=== PATIENT | male | born 1975 | race Caucasian/White ===

== ENCOUNTER 2021-02-15 18:37 | Emergency (ER) | payer MEDICAID, SELFPAY ==
--- NOTE | ~2021-02-15 | XR_ITS ---
EXAMINATION: XR SHOULDER, LEFT CLINICAL INFORMATION: Left shoulder pain. COMPARISON: None TECHNIQUE: AP, Grashey, and scapular Y views of the left shoulder. FINDINGS: Pcyc-cw-oxkrxwbd acromioclavicular marginal osteophytes. No glenohumeral joint space narrowing or marginal osteophytes. Probable degenerative cystic change within the humeral head. No acute fracture or dislocation. No abnormal soft tissue calcification. XR/XR shoulder LT min 2V IMPRESSION: Lala-tq-xwlanzsn acromioclavicular osteoarthritis.
--- NOTE | ~2021-02-15 | XR_ITS ---
EXAMINATION: XR CERVICAL SPINE CLINICAL INFORMATION: Left-sided neck pain. COMPARISON: None TECHNIQUE: Three views of the cervical spine were obtained. FINDINGS: There are no prevertebral soft tissue or bony abnormalities demonstrated. No compression fractures or subluxations are identified. Alignment is maintained at the atlanto-axial articulation. The disc spaces are preserved. No endplate changes are seen. The prevertebral soft tissues are normal. The foramina are patent. XR/XR cervical spine 2V IMPRESSION: Unremarkable examination.
--- NOTE | ~2021-02-15 | XR_ITS ---
EXAMINATION: XR CHEST CLINICAL INFORMATION: Overdose. COMPARISON: None TECHNIQUE: 2 views of the chest were obtained. FINDINGS: The lungs are clear. The cardiomediastinal silhouette is normal in size. There is no pleural effusion or pneumothorax. No acute osseous abnormality. XR/XR chest 2V IMPRESSION: No acute cardiopulmonary findings.
[2021-02-15 18:50] VITALS: BP 130/84; PULSE 98; RESP 18; TEMP 36.6; O2SAT 96; BMI 23.4
--- NOTE | 2021-02-15 18:57 | ED_ITS ---
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 Was found unresponsive on the side of the road, given 8 mg of Narcan and Ambu bagged by police department. Patient is alert oriented on arrival, and is unable to communicate effectively because he requires a creative services designer. complaint: accidental overdose Onset (ago): hour(s) (Within the hour of arrival) Intent: unwilling to say Context: Accidental Overdose: uncertain what happened Treatments Prior to Arrival: narcan Related Data Allergies Allergy/AdvReac Type Severity Reaction Status Date / Time Unable to Assess Allergy Verified 02/15/21 18:54 Review of Systems Review of Systems: Constitutional: No Fever, No Chills ENT/Mouth: No sore throat, No Rhinorrhea Eyes: No Eye Pain, No Swelling, No Redness Cardiovascular: No Chest Pain, No SOB Respiratory: No Cough, No Sputum Gastrointestinal: No Nausea, No Vomiting, No Diarrhea, No abdominal Pain Genitourinary: No Dysuria, No Hematuria Musculoskeletal: No joint pain, No Myalgias, No Joint Swelling Skin: No Skin Lesions, No rash Neuro: No Weakness, No Numbness, No Loss of Consciousness, No Dizziness, No Headache Psych: Positive overdose, No Anxiety, No Depression, No SI/HI/AH/VH Heme/Lymph: No Bruising, No Bleeding,No Lymphadenopathy Endocrine: No Polyuria, No Polydipsia Yes all other systems are reviewed and are negative [facility] Past Medical History Attestation statement: The following information was validated with the patient. Source: old records reviewed Social History Social History Advance Directives: No Advance Directives Information Provided: Yes Physical Exam Vital Signs: Vital Signs: Last Vital Signs Temp 98 F 02/15/21 21:25 Pulse 70 02/15/21 21:25 Resp 16 02/15/21 21:25 BP 119/81 02/15/21 21:25 Pulse Ox 99 02/15/21 21:25 Body Mass Index 23.4 Appearance: Alert. Oriented X3. No acute distress. Eyes: Pupils equal, round and reactive to light. ENT: Pharynx normal. Neck: Normal inspection. Neck supple. CVS: Normal heart rate and rhythm. Pulses normal. Respiratory: No respiratory distress. Breath sounds normal. Abdomen: Soft and nontender. Skin: Skin warm and dry. Normal skin color. Normal skin turgor. Extremities: Moves all extremities against resistance. Left shoulder pain to palpation. Neuro: No motor deficit. No sensory deficit. Course Course Course Narrative: 37-year-old male presents via EMS for overdose. Patient is hard of hearing, can read lips and requires professor of genetics. professor of genetics at bedside, patient states that he does not know what happened, denies opioid abuse. Patient's etdmxss-mv-aos at bedside, immediately stated that patient does not do drugs. Detailed description of the events that occurred discussed with the patient and the patient's family member, patient still will not admit to using opioids even though he was resuscitated with Narcan and rescue breath. We will monitor for 2 hours, patient does state to have left shoulder pain. Will order x-rays. 8:24 p.m. X-rays are negative for acute findings requiring emergent intervention. Patient maintains O2 sats in the 99-98% on room air. Even unlabored respirations, easily arousable. 9:23 p.m., vital signs were stable, O2 sat 98% on room air, heart rate in 70s. Plan of care is discharged home. Patient is not forthcoming about the incidents that brought him here. MDM - Overdose Differential Diagnosis Differential diagnosis: Likely drug overdose Medical Records Attestation: I reviewed the patient's medical records. Imaging Data Chest x-ray: Attestation: I personally reviewed and interpreted this imaging study as follows: Radiologist's impression: EXAMINATION: XR CHEST CLINICAL INFORMATION: Overdose. COMPARISON: None TECHNIQUE: 2 views of the chest were obtained. FINDINGS: The lungs are clear. The cardiomediastinal silhouette is normal in size. There is no pleural effusion or pneumothorax. No acute osseous abnormality. XR/XR chest 2V IMPRESSION: No acute cardiopulmonary findings. Shoulder x-ray: Attestation: I personally reviewed and interpreted this imaging study as follows: Radiologist's impression: EXAMINATION: XR SHOULDER, LEFT CLINICAL INFORMATION: Left shoulder pain. COMPARISON: None TECHNIQUE: AP, Grashey, and scapular Y views of the left shoulder. FINDINGS: Bioc-ei-eyglmbrn acromioclavicular marginal osteophytes. No glenohumeral joint space narrowing or marginal osteophytes. Probable degenerative cystic change within the humeral head. No acute fracture or dislocation. No abnormal soft tissue calcification. XR/XR shoulder LT min 2V IMPRESSION: Uuqx-bo-czpvonek acromioclavicular osteoarthritis. Cervical spine x-ray: Attestation: I personally reviewed and interpreted this imaging study as follows: Radiologist's impression: EXAMINATION: XR CERVICAL SPINE CLINICAL INFORMATION: Left-sided neck pain. COMPARISON: None TECHNIQUE: Three views of the cervical spine were obtained. FINDINGS: There are no prevertebral soft tissue or bony abnormalities demonstrated. No compression fractures or subluxations are identified. Alignment is maintained at the atlanto-axial articulation. The disc spaces are preserved. No endplate changes are seen. The prevertebral soft tissues are normal. The foramina are patent. XR/XR cervical spine 2V IMPRESSION: Unremarkable examination. Discharge Plan Discharge Clinical Impression: Heroin overdose Qualifiers: Encounter type: initial encounter Injury intent: accidental or unintentional Qualified Code(s): T40.1X1A - Poisoning by heroin, accidental (unintentional), initial encounter Patient Disposition: Home, Self-Care Instructions: Opioid Safety (ED), Opioid Use Disorder (ED) Additional Instructions: Considere la desintoxicaci?n. Teagan por elegir sheri departamento de emergencias para estes evaluaci?n. Carmen un seguimiento con el m?dico de atenci?n primaria seg?n sea necesario. Regrese al departamento de emergencias por cualquier s?ntoma nuevo, preocupante o que empeore. Please consider detox. Thank you for choosing this emergency department for evaluation. Please follow-up with primary care physician as needed. Return to the emergency department for any new, concerning, or worsening symptoms. Interventions: ED Discharge Assessment Last Done: 02/15/21 21:35 Discharge Date/Time: 02/15/21 21:36
[2021-02-15 21:25] VITALS: BP 119/81; PULSE 70; RESP 16; TEMP 36.6; O2SAT 99
== END 2021-02-15 21:36 | disposition home or self-care (01) ==
PROVIDERS: Emergency Provider Internal Medicine
DX: T40.1X1A Poisoning by heroin, accidental (unintentional), initial encounter (principal); M25.512 Pain in left shoulder; M54.2 Cervicalgia; F11.10 Opioid abuse, uncomplicated; Y92.9 Unspecified place or not applicable; Z71.51 Drug abuse counseling and surveillance of drug abuser
CPT/HCPCS: 71046; 72040; 73030; 99284

== ENCOUNTER 2021-10-08 10:52 | Emergency (ER) | payer MEDICAID, SELFPAY ==
[2021-10-08 12:29] VITALS: BP 128/77; PULSE 77; RESP 18; TEMP 36.6; O2SAT 99; BMI 25.1
--- NOTE | 2021-10-08 13:34 | ED_ITS ---
HPI - Male Genitourinary General Chief complaint: Urogenital-Male Stated complaint: Abd pain Time Seen by Provider: 10/08/21 13:17 Source: patient Mode of arrival: ambulatory Limitations: language barrier (Patient is deaf and mute, his 1st language is [place], he does use ASL but he angle shear set up operator had difficulty communicating with patient) History of Present Illness HPI Narrative: 46-year-old male who presents emergency department for evaluation of penile discharge x2 days. The patient is a deaf mute, 1st language is [place], uses ASL however there was difficulty communicating with using the ASL residential interior designer and information is limited. The patient states that he had sex with 2 women, I was unable to determine when this happened. He states that over the past 1-2 days he has had pain in his penis and he has noticed thick discharge. Other information is limited. Related Data Previous Rx's Medication Instructions Recorded doxycycline hyclate 100 mg tablet 100 mg PO Q12H 10 Days #20 tab 10/08/21 metronidazole 500 mg tablet 2,000 mg PO ONCE 1 Days #4 tab 10/08/21 Allergies Allergy/AdvReac Type Severity Reaction Status Date / Time Unable to Assess Allergy Verified 02/15/21 18:54 Review of Systems Review of Systems: Yes Other (Limited secondary to communication barrier) [facility] Past Medical History [facility] Narrative: Past medical history: Heroin overdose 02/15/2021. Social history: The patient lives alone. Social History Social History Advance Directives: No Advance Directives Information Provided: Yes Physical Exam Vital Signs: Vital Signs: Last Vital Signs Temp 98 F 10/08/21 12:29 Pulse 77 10/08/21 12:29 Resp 18 10/08/21 12:29 BP 128/77 10/08/21 12:29 Pulse Ox 99 10/08/21 12:29 BMI result Body Mass Index 25.1 Const: General: cooperative and no acute distress HENMT: Head: Yes normal to inspection, Yes normocephalic and Yes atraumatic Ears: external ears normal General nose exam: Normal external nose present Face and sinus: Yes normal facial exam Mouth: Normal oral and palatal mucosa present Throat: Yes posterior oropharynx normal Eyes: General: appearance normal, both eyes and all related structures Neck: Neck: Yes normal visual inspection, Yes no lymphadenopathy, Yes trachea midline and Yes supple Chest: Chest palpation & inspection: normal inspection of the chest and normal palpation of entire chest wall Resp: Effort & Inspection: normal respiratory effort and able to speak in co mplete sentences Auscultation: clear to auscultation bilaterally Cardio: Rate: regular rate Rhythm: regular rhythm Heart sounds: S1 normal heart sound present, S2 normal heart sound present and no murmurs GI: Inspection: Yes normal to inspection Palpation (GI): Soft to palpation, nontender and no guarding Auscultation: normal bowel sounds : General: Yes no CVA tenderness Male General Exam: Yes normal external exam Penis: normal penis and uncircumcised Meatus: meatal discharge (Perfused, thick, melvin) Scrotum: scrotum normal, testes descended bilaterally and no scrotal swelling Testes: Testes normal, no epidiymal tenderness, no testicular swelling and no testicular tenderness Back/Spine/Pelvis: Back: no CVA tenderness Skin: General skin exam: no rashes or lesions noted Neuro: Other: Nonfocal Extrem: General: Yes normal to inspection Psych: Appearance: grossly normal Affect: normal affect Attitude: cooperative Course Course Course Narrative: 46-year-old male who presents emergency department for evaluation of penile discharge. Vital signs were normal. Examination did reveal an uncircumcised male penis with a thick, perfuse, grayish discharge which is consistent with an STD most likely gonorrhea. I did discuss the treatment of STD with the patient. The patient was given ceftriaxone 500 mg IM with lidocaine 1% IM. Patient will be treated with doxycycline 100 mg twice a day for 10 days and metronidazole 2 g x 1 orally. Patient was advised to follow-up with his PCP Or [facility] for HIV testing and for syphilis testing. He was also told that he should inform his sexual partners so that they can be treated as well. Patient was given printed and verbal instructions and discharged home. Discharge Plan Discharge Clinical Impression: STD (male), Gonococcal urethritis Patient Disposition: Home, Self-Care Instructions: Sexually Transmitted Diseases (ED), Gonorrhea (ED) Additional Instructions: Your exam today and your symptoms are consistent with a sexually transmitted disease, most likely gonorrhea. You were treated with ceftriaxone 500 mg IM. This will treat gonorrhea. I am prescribing doxycycline 100 mg pills, take 1 pill twice a day for 10 days. This will treat chlamydia. I am also prescribing Flagyl (metronidazole) 500 mg pills, take 4 pills all at once tomorrow. You will need to follow-up with your doctor or the [facility] in [place] for AIDS/HIV and syphilis testing. You will need to contact your sexual partners to make sure that they get treated for sexually transmitted diseases well. Take ibuprofen 200 mg pills, 3 pills every 6 hours as needed for pain. Take Tylenol (acetaminophen) 500 mg pills, 2 pills every 4 to 6 hours as needed for pain. Follow-up with your doctor in 7 days or [facility]. Please return to the emergency department if your symptoms get worse or if you develop any symptoms that are concerning to you. Prescriptions: New metronidazole 500 mg tablet 2,000 mg PO ONCE 1 Days Qty: 4 RF: 0 doxycycline hyclate 100 mg tablet 100 mg PO Q12H 10 Days Qty: 20 RF: 0 Print Language: [place]
[2021-10-08] MEDS: cefTRIAXone sodium 500 MG, Lidocaine HCl 1 % MPF 1 ML IM (15:02)
[2021-10-08 15:27] VITALS: BP 118/83; PULSE 69; RESP 18; TEMP 37.1; O2SAT 99
== END 2021-10-08 15:46 | disposition home or self-care (01) ==
PROVIDERS: Emergency Provider Emergency Medicine Emergency Medical Services
DX: A54.01 Gonococcal cystitis and urethritis, unspecified (principal); R36.9 Urethral discharge, unspecified; R10.9 Unspecified abdominal pain; Z79.899 Other long term (current) drug therapy
CPT/HCPCS: 96372; 99284; J0696

== ENCOUNTER 2022-01-02 14:00 | Emergency (ER) | payer MEDICAID, SELFPAY ==
--- NOTE | ~2022-01-02 | XR_ITS ---
EXAMINATION: 1. RIGHT HIP. 2. RIGHT FEMUR. CLINICAL INFORMATION: Pain in upper leg after a fall COMPARISON: None TECHNIQUE: 1. Right hip. Frontal view of pelvis. Cone-down AP and oblique view of the right hip 2. Right femur. 2 views FINDINGS: 1. Right hip. No fracture. No dislocation. Hip joints normal. Sacroiliac joints and symphysis pubis are normal. 2. Right femur. Intramedullary alice present in the femur. Hardware intact. Old healed fracture with residual deformity of the distal shaft of the right femur. Prominent spur at the inferior patellar margin. Small chronic soft tissue ossification the suprapatellar region and inferior to the patella at the anterior knee joint. XR/XR femur RT 2V IMPRESSION: 1. Right hip. No acute abnormality. 2. Right femur. No acute abnormality. Old healed fracture of the right femur. Intramedullary alice in right femur.
--- NOTE | ~2022-01-02 | XR_ITS ---
EXAMINATION: 1. RIGHT HIP. 2. RIGHT FEMUR. CLINICAL INFORMATION: Pain in upper leg after a fall COMPARISON: None TECHNIQUE: 1. Right hip. Frontal view of pelvis. Cone-down AP and oblique view of the right hip 2. Right femur. 2 views FINDINGS: 1. Right hip. No fracture. No dislocation. Hip joints normal. Sacroiliac joints and symphysis pubis are normal. 2. Right femur. Intramedullary alice present in the femur. Hardware intact. Old healed fracture with residual deformity of the distal shaft of the right femur. Prominent spur at the inferior patellar margin. Small chronic soft tissue ossification the suprapatellar region and inferior to the patella at the anterior knee joint. XR/XR hip RT w PEL1V IMPRESSION: 1. Right hip. No acute abnormality. 2. Right femur. No acute abnormality. Old healed fracture of the right femur. Intramedullary alice in right femur.
[2022-01-02 15:33] VITALS: BP 145/97; PULSE 90; RESP 16; TEMP 36.9; O2SAT 99; BMI 23.7
--- NOTE | 2022-01-02 17:51 | PC.NURSE ---
WENT TO MEDICATE PT NOT IN ROOM.
--- NOTE | 2022-01-02 18:19 | PC.NURSE ---
PT DOES NOT HAVE RIDE HOME DROVE HERE HIS SELF. NO MEDICATION GIVEN DO TO DRIVING HOME. PT AMBULATING WITH STEADY GAIT GIVEN 2 TURKEY SANDWICHES.
--- NOTE | 2022-01-02 19:23 | ED.LOWEXIN ---
HPI - Extremity Injury (Lower) General Chief Complaint: Extremity Injury, Lower Stated Complaint: right hip leg pain throbbing Time Seen by Provider: 01/02/22 17:14 Source: patient Mode of arrival: ambulatory Limitations: physical limitation (deaf) History of Present Illness HPI Narrative: 46-year-old male who is deaf but can read lips and can describe his experienced through gestures and some speech, tells me that yesterday he had a piece of furniture fall on his right hip in his right leg and now it is painful. Related Data Previous Rx's Medication Instructions Recorded doxycycline hyclate 100 mg tablet 100 mg PO Q12H 10 Days #20 tab 10/08/21 metronidazole 500 mg tablet 2,000 mg PO ONCE 1 Days #4 tab 10/08/21 lidocaine 5 % topical patch 3 patch TOPICAL DAILY #15 ea 01/02/22 Allergies Allergy/AdvReac Type Severity Reaction Status Date / Time Unable to Assess Allergy Verified 02/15/21 18:54 Review of Systems Constitutional: Constitutional: Denies body ache(s), Denies chills, Denies fatigue, Denies fever(s), Denies headache(s), Denies malaise and Denies weakness Eyes: Eyes: Denies diplopia ENT: Denies vertigo, Denies dizziness, Denies headache(s) and Denies throat swelling Cardiovascular: Cardiovascular: Denies chest pain, Denies syncope, Denies leg edema, Denies lightheadedness, Denies Loss of Consciousness, Denies palpitations and Denies dyspnea Respiratory: Respiratory: Denies chest congestion, Denies cough and Denies dyspnea Gastrointestinal: Gastrointestinal: Reports abdominal pain, Denies hematochezia, Denies constipation, Denies diarrhea and Denies vomiting Musculoskeletal: Comments: Right hip and leg pain Neurologic: Denies confusion, Denies vertigo, Denies dizziness, Denies syncope, Denies headache(s) and Denies weakness Psychiatric: Psychiatric: Denies anxiety, Denies confusion and Denies depression Endocrine: Endocrine: Denies fatigue and Denies palpitations Allergic/Immunologic: Allergic/Immunologic: Denies throat swelling PMFSH Social History Social History Advance Directives: No Advance Directives Information Provided: No Physical Exam Vital Signs: Vital Signs: Last Vital Signs Temp 98.4 F 01/02/22 15:33 Pulse 90 01/02/22 15:33 Resp 16 01/02/22 15:33 BP 145/97 H 01/02/22 15:33 Pulse Ox 99 01/02/22 15:33 BMI result Body Mass Index 23.7 Const: General: No confusion Nutritional Appearance: well nourished Orientation/consciousness: No confusion Limitations: no limitations Eyes: Conjunctivae: conjunctivae normal Pupils: Equal, round and reactive pupils present EOM: EOMs intact bilaterally Neck: Neck: Yes full ROM, Yes no lymphadenopathy and Yes supple Resp: Effort & Inspection: normal respiratory effort and able to speak in complete sentences Auscultation: clear to auscultation bilaterally, no crackles, no rales, no rhonchi and no wheezes Cardio: Rate: regular rate Rhythm: regular rhythm Heart sounds: S1 normal heart sound present and S2 normal heart sound present GI: Inspection: Yes normal to inspection Palpation (GI): Soft to palpation, nontender, no guarding and not rigid Percussion: Yes normal to percussion Auscultation: normal bowel sounds Skin: General skin exam: no rashes or lesions noted Neuro: General: No confusion Cranial nerves: Yes Equal, round and reactive pupils present Extrem: Other: Tender to palpate right lateral thigh right hip General: Yes normal to inspection, Yes full ROM, Yes capillary refill normal and Yes no joint enlargement Psych: Appearance: grossly normal Affect: normal affect Attitude: cooperative Thought process: Normal thought process present Course Course Course Narrative: 46-year-old patient presents for right hip and right upper thigh pain after a piece of furniture fell onto him. No fracture on x-ray. Patient is able to ambulate, and has intact lower extremity pulses, sensation, DTRs, and motor strength. Will treat pain with lidocaine patches. Patient verbalized agreement and understanding of the plan. XR/XR femur RT 2V IMPRESSION: ? 1. Right hip. No acute abnormality. 2. Right femur. No acute abnormality. Old healed fracture of the right femur. Intramedullary alice in right femur.? Discharge Plan Discharge Clinical Impression: Contusion of hip, right Patient Disposition: Home, Self-Care Instructions: Contusion in Adults (ED) Additional Instructions: Please apply lidocaine patch to right hip for pain. You have no fracture. Please rest your right leg. Please use Tylenol. Please return to emergency room for any new or concerning symptoms. Prescriptions: New lidocaine 5 % adhesive patch,medicated 3 patch topical DAILY Qty: 15 0RF Rx Instructions: leave on most painful area for up to 12 hrs No Action metronidazole 500 mg tablet 2,000 mg PO ONCE 1 Days Qty: 4 0RF doxycycline hyclate 100 mg tablet 100 mg PO Q12H 10 Days Qty: 20 0RF Interventions: ED Discharge Assessment Last Done: 01/02/22 19:36 Discharge Date/Time: 01/02/22 19:38
== END 2022-01-02 19:38 | disposition home or self-care (01) ==
PROVIDERS: Emergency Provider Emergency Medicine
DX: S70.01XA Contusion of right hip, initial encounter (principal); M79.604 Pain in right leg; Y29.XXXA Contact with blunt object, undetermined intent, initial encounter; Y93.9 Activity, unspecified; Y92.9 Unspecified place or not applicable; Y99.9 Unspecified external cause status; Z79.899 Other long term (current) drug therapy
CPT/HCPCS: 73502; 73552; 99283; 99284

== ENCOUNTER 2022-01-28 02:27 | Emergency (ER) | payer MEDICAID, SELFPAY ==
[2022-01-28 02:38] VITALS: BP 149/77; PULSE 80; RESP 16; TEMP 36.8; O2SAT 100; BMI 24.3
--- NOTE | 2022-01-28 02:52 | ED_ITS ---
HPI - Male Genitourinary General Chief complaint: Urogenital-Male Stated complaint: uti? Time Seen by Provider: 01/28/22 02:41 Source: family (Brother) Mode of arrival: ambulatory Limitations: no limitations History of Present Illness HPI Narrative: Patient comes to the emergency room accompanied by his brother. Patient is deaf mute, speaks Bulgarian sign language. Patient declined site interpreter, patient would like his brother to interpret. Patient has been having dysuria and heavy white penile discharge for 6 days. Denies fever chills, no flank pain. Patient states that he is sure that he has a sexually transmitted disease. Related Data Previous Rx's Medication Instructions Recorded doxycycline hyclate 100 mg tablet 100 mg PO Q12H 10 Days #20 tab 10/08/21 metronidazole 500 mg tablet 2,000 mg PO ONCE 1 Days #4 tab 10/08/21 lidocaine 5 % topical patch 3 patch TOPICAL DAILY #15 ea 01/02/22 doxycycline hyclate 100 mg tablet 100 mg PO BID #14 tab 01/28/22 nitrofurantoin 100 mg PO Q12H 7 Days #14 cap 01/28/22 monohydrate/macrocrystals 100 mg capsule (Macrobid) Allergies Allergy/AdvReac Type Severity Reaction Status Date / Time No Known Allergies Allergy Verified 01/28/22 02:37 Review of Systems Review of Systems: Constitutional : No Weight loss, No Fever, No Chills, No Night Sweats, No Fatigue, No Malaise ENT/Mouth : No Hearing loss, No Ear Pain, No Nasal Congestion, No Sinus Pain, No Hoarseness, No sore throat, No Rhinorrhea, No Swallowing Difficulty Eyes: No Eye Pain, No Swelling, No Redness, No Foreign Body, No Discharge, No Vision Changes Cardiovascular : No Chest Pain, No SOB, No Dyspnea on Exertion, No Orthopnea, No Edema, No Palpitations Respiratory : No Cough, No Sputum, No Wheezing, No Smoke Exposure, No Dyspnea Gastrointestinal : No Nausea, No Vomiting, No Diarrhea, No Constipation, No abdominal Pain, No Hematochezia, No Melena Genitourinary : Complaining of penile discharge, denies testicular pain. No Dysuria, No Urinary Frequency, No Hematuria, No Urinary Incontinence, No Urgency, No Flank Pain, No Urinary Flow Changes, No Hesitancy Musculoskeletal : No joint pain, No Myalgias, No Joint Swelling Skin : No Skin Lesions, No rash Neuro : No Weakness, No Numbness, No Paresthesias, No Loss of Consciousness, No Dizziness, No Headache Psych : No Anxiety/Panic, No Depression, No SI/HI/AH/VH, No Social Issues, Heme/Lymph: No Bruising, No Bleeding,No Lymphadenopathy Endocrine : No Polyuria, No Polydipsia, No Temperature Intolerance PMF Past Medical History Medical History (Updated 01/28/22 @ 04:05 by Marcela Bañuelos MD) Deaf mutism, congenital Social History Social History Advance Directives: No Physical Exam Vital Signs: Vital Signs: Last Vital Signs Temp 98.2 F 01/28/22 02:38 Pulse 70 01/28/22 03:51 Resp 12 01/28/22 03:51 BP 130/79 01/28/22 03:51 Pulse Ox 99 01/28/22 03:51 BMI result Body Mass Index 24.3 Const: Other: Appearance: Alert. Oriented X3. No acute distress. Eyes: Pupils equal, round and reactive to light. ENT: Pharynx normal. Neck: Normal inspection. Neck supple. No lymph nodes noted. No crepitus CVS: Normal heart rate and rhythm. Pulses normal. Normal S1 and S2 Respiratory: No respiratory distress. Breath sounds normal. No Wheezing. No rales Abdomen: Soft and nontender. No rigidity. No distention. : No testicular pain bilaterally on palpation. Patient has copious white penile discharge Skin: Skin warm and dry. Normal skin color. Normal skin turgor. Extremities: No lower extremity edema. No Lacerations. No Rash Neuro: Oriented X 3. No motor deficit. No sensory deficit. Moving all extremities. No slurred speech. CN 2 through 12 grossly intact Psych: calm, cooperative, normal affect Course Course Course Narrative: Urinalysis pending. I discussed with the patient that based on physical exam, he likely has gonorrhea and likely also chlamydia. Patient will get IM ceftriaxone and p.o. doxycycline and will continue the rest of the antibiotics at home. Patient agrees with plan. Patient has foul-smelling urine. Besides STD, patient likely has a UTI as well. Patient given also Macrobid. MDM - Male Genitourinary Lab Data Labs: Lab Results 01/28/22 01/28/22 Range/Units 03:21 03:21 Urine Color YELLOW Urine Appearance CLOUDY Urine pH 6.0 (5.0-8.0) Ur Specific Accident >= 1.030 H (1.005-1.025) Urine Protein NEG (NEG-TRACE) MG/DL Urine Glucose (UA) NEG (NEG) MG/DL Urine Ketones NEG (NEG) MG/DL Urine Blood 1+ H (NEG) Urine Nitrite NEG (NEG) Ur Leukocyte Esterase 1+ H (NEG) Urine RBC 1-4 (0) /HPF Urine WBC TNTC H (0-4) /HPF Urine WBC Clumps NOTED Ur Squamous Epith Cells NONE /LPF Urine Bacteria 1+ /LPF Urine Opiates Screen POSITIVE H (Not Detect) Urine Fentanyl Screen POSITIVE H (Not Detect) Ur Barbiturates Screen Not Detected (Not Detect) Ur Phencyclidine Scrn Not Detected (Not Detect) Ur Amphetamines Screen Not Detected (Not Detect) U Benzodiazepines Scrn Not Detected (Not Detect) Urine Cocaine Screen POSITIVE H (Not Detect) U Marijuana (THC) Screen Not Detected (Not Detect) Discharge Plan Discharge Clinical Impression: Exposure to STD, Acute UTI Patient Disposition: Home, Self-Care Instructions: Sexually Transmitted Diseases (ED), Urinary Tract Infection in Men (ED) Additional Instructions: Please follow-up with your primary care physician tomorrow. If you have any worsening or new symptoms, please return to the emergency room or call 911 Prescriptions: New doxycycline hyclate 100 mg tablet 100 mg PO BID Qty: 14 0RF nitrofurantoin monohyd/m-cryst [Macrobid] 100 mg capsule 100 mg PO Q12H 7 Days Qty: 14 0RF Rx Instructions: must administer with a meal/food No Action metronidazole 500 mg tablet 2,000 mg PO ONCE 1 Days Qty: 4 0RF doxycycline hyclate 100 mg tablet 100 mg PO Q12H 10 Days Qty: 20 0RF lidocaine 5 % adhesive patch,medicated 3 patch topical DAILY Qty: 15 0RF Rx Instructions: leave on most painful area for up to 12 hrs
[2022-01-28] MEDS: cefTRIAXone sodium 500 MG, Lidocaine HCl 1 % MPF 1 ML IM (03:11)
[2022-01-28 03:35] LABS: Appearance Urine CLOUDY; Color Urine YELLOW; Glucose Urine UA NEG (NEG); Leukocyte Esterase Urine 1+ (NEG); Nitrite Urine NEG (NEG); Specific Gravity - Urine >= 1.030 (1.005-1.025); UACC Culture Trigger YES; Urine Blood 1+ (NEG); Urine Ketones NEG (NEG); Urine Protein NEG (NEG-TRACE)
[2022-01-28 03:48] LABS: Amphetamine Screen Urine Not Detected (Not Detect); Barbiturates, Urine Not Detected (Not Detect); Benzodiazepines Screen Urine Not Detected (Not Detect); Cannabinoid Screen Urine Not Detected (Not Detect); Cocaine Screen Urine POSITIVE (Not Detect); Fentanyl, urine POSITIVE (Not Detect); Opiate Screen Urine POSITIVE (Not Detect); Phencyclidine Screen Urine Not Detected (Not Detect)
[2022-01-28 03:51] VITALS: BP 130/79; PULSE 70; RESP 12; O2SAT 99
[2022-01-28 03:59] LABS: Bacteria Urine 1+ /LPF; WBC Clumps Urine NOTED; WBC Urine TNTC /HPF (0-4)
[2022-01-28] MEDS: Nitrofurantoin Monohyd/M-Cryst 100 MG CAPSULE PO (04:21)
[2022-01-28 05:06] LABS: CT PCR NOT DETECTED (Not Detect.); NG PCR DETECTED (Not Detect.)
== END 2022-01-28 04:39 | disposition home or self-care (01) ==
PROVIDERS: Emergency Provider Emergency Medicine
DX: N39.0 Urinary tract infection, site not specified (principal); R30.0 Dysuria; Z20.2 Contact with and (suspected) exposure to infections with a predominantly sexual mode of transmission; Z79.899 Other long term (current) drug therapy
CPT/HCPCS: 80307; 81001; 87086; 87491; 87591; 96372; 99284; J0696

== ENCOUNTER 2023-04-08 17:50 | Emergency (ER) | payer MEDICAID, SELFPAY ==
--- NOTE | ~2023-04-08 | XR_ITS ---
EXAMINATION: XR CHEST CLINICAL INFORMATION: Left-sided chest pain COMPARISON: None available. TECHNIQUE: Frontal view of the chest was obtained. FINDINGS: No significant abnormality is noted involving the heart, lungs, mediastinum, bony thorax or soft tissues. XR/XR chest 1V IMPRESSION: Unremarkable chest examination.
--- NOTE | ~2023-04-08 | CT_ITS ---
EXAMINATION: CT ABDOMEN AND PELVIS WITHOUT CONTRAST CLINICAL INFORMATION: Left abdominal pain COMPARISON: None available. TECHNIQUE: Multidetector volumetric imaging was performed from the superior aspect of the liver through the pubic symphysis. Sagittal and coronal reformatted images were obtained on the technologist's workstation. This CT examination was performed using dose optimization techniques as appropriate, variously including the following: *Automated exposure control *Adjustment of mA and/or kV according to patient size (this includes techniques or standardized protocols for targeted exams where dose is matched to indication/reason for exam; i.e. extremities or head) *Use of iterative reconstruction technique DLP: 246 mGy-cm FINDINGS: LUNG BASES: The lung bases are clear. The heart size is normal. LIVER, GALLBLADDER, AND BILIARY TREE: The liver is normal in size, shape, and attenuation. No focal hepatic lesion or biliary ductal dilatation is present. The gallbladder is unremarkable with no evidence of radiopaque gallstones, gallbladder wall thickening, or obvious pericholecystic inflammatory changes. PANCREAS: Unremarkable. SPLEEN: Unremarkable. ADRENAL GLANDS: Unremarkable. KIDNEYS AND URETERS: The kidneys are normal in size, shape, and attenuation. No hydronephrosis, hydroureter, or calculi seen. No perinephric stranding. BLADDER: The bladder is nondistended. GASTROINTESTINAL TRACT: There is a large amount of stool and gas seen in colon without significant distention. The small bowel loops are normal caliber. Appendix is not visualized. There is no free air or free fluid. ABDOMINAL WALL: No significant hernia is appreciated. LYMPH NODES: Normal. VASCULAR: Unremarkable. PELVIC VISCERA: Unremarkable. OSSEOUS STRUCTURES: No aggressive lytic or sclerotic process seen. CT/CT abdomen pelvis wo IV con IMPRESSION: 1. No acute intra-abdominal process seen. 2. Mild constipation. Fleischner guidelines were followed.
[2023-04-08 18:10] VITALS: BP 130/95; BP 140/98; PULSE 104; PULSE 120; RESP 18; TEMP 37.1; O2SAT 98; O2SAT 99; BMI 14.5
--- NOTE | 2023-04-08 18:16 | PC.NURSE ---
Arrived via ems. Per ems reports patients lives with many people but none of them were able to say what was wrong with patient. Patient deaf, mute, cant`t read, can`t write. Patient with some ability to read lips. Using interpretation cart chimney mechanic called. Branding Machine Operator stating that patient does not appear to understand much ASL. Patient able to communicate that his stomach was hurting him. Motioning that he had thrown up. Unable to say for how long. Brother called who only speaks bulgarian. Branding Machine Operator called to translate with brother one phone
--- OUTSIDE RECORDS SUMMARY | 2023-04-08 18:21 | XMS_ITS | Continuity of Care Document ---
Author Name Unknown Organization [facility] Address [address] [place] [address] [address] [place] [address]- Care Team Providers Care Gas Station Supervisor Name Role Phone Not on Staff, PCP Primary Care Physician Unavail able Encounter [facility] Date(s): 02/18/23 - 04/03/[address] [place] [address]- Attending Physician: Anayeli CASTELLANO, Rodo Dumont Allergies, Adverse Reactions, Alerts No Known Allergies Medications Colace sodium 100 mg oral capsule 100 mg, 1, capsule, By Mouth, 2 times a day, PRN, # 20 capsule, Refills 1, Tot. Refills 1, Maintenance, for constipation, 03/18/23 10:59:00 EDT, Route to Pharmacy Electronically, [facility], Partial fill upon patient request if the presc... Start Date: 03/18/23 Status: Ordered gabapentin 100 mg oral capsule 100 mg, 1, capsule, By Mouth, 3 times a day, # 90 capsule, Refills 1, Tot. Refills 1, Maintenance, 03/18/23 10:59:00 EDT, Route to Pharmacy Electronically, [facility], Partial fill uponpatient request if the prescription is for a schedu... Start Date: 03/18/23 Status: Ordered Problem List Condition Confirmation Course Effective Dates Status Health [facility] Informant Severe obesity Confirmed Active Patient Care team information Care Team Personnel Name: Marcela Hines NP Position: [facility] Associate Professional Member Role: Lifetime Consulting Provider Address: Address: [address] [place] [address] [address] [facility] [place] [address]- [place] Name: Richar Bailey MD Position: [facility] Renal MD Member Role: Lifetime Consulting Physician Address: Address: [address] [place] [address] [address] [facility] [place] [address]- Name: Glory Aj Position: S RN Member Role: Primary Care Nurse Name: Not on Staff, PCP Position: [facility] Physician (General Medicine) Member Role: PCP Care Team Related Persons Name: BARBARA GONSALVES Address: home [address] [place] [id number]
--- OUTSIDE RECORDS SUMMARY | 2023-04-08 18:21 | XMS_ITS | Continuity of Care Document ---
Author Name Unknown Organization [facility] ter Address [address] [place] [id number] Care Team Providers Care Fleet Coordinator Name Role Phone Not on Staff, PCP Primary Care Physician Unavail able Encounter [facility] [place] Date(s): 02/14/23 - 03/04/[address] [address] Discharge Disposition: A-D/C Home Attending Physician: Chuy CASTELLANO, Alex Santos Admitting Physician: Abdias Stephenson MD Referring Physician: Not on Staff, Referring MD Allergies, Adverse Reactions, Alerts No Known Allergies Medications amLODIPine 10 mg oral tablet 10 mg, Tablet, By Mouth, 03/04/23 9:00:00 EDT Start Date: 03/04/23 Stop Date: 03/04/23 Status: Completed gabapentin 100 mg oral capsule 100 mg, Capsule, By Mouth, 03/04/23 15:00:00 EDT Start Date: 03/04/23 Stop Date: 03/04/23 Status: Completed oxyCODONE 5 mg oral tablet 2.5 mg, 0.5, tablet, By Mouth, Every 6 hours, PRN, for 5 days, # 24 tablet, Refills 0, Tot. Refills0, Acute 03/09/23 13:23:00 EDT, as needed for pain, 03/04/23 13:23:00 EDT, Route to Pharmacy Electronically, [facility], Partial fill upo... Start Date: 03/04/23 Stop Date: 03/09/23 Status: Ordered oxyCODONE 5 mg oral tablet 5 mg, Tablet, By Mouth, Every 4 hours, PRN for Pain , Moderate, Routine, 02/22/23 9:42:00 EDT Start Date: 02/22/23 Stop Date: 03/05/23 Status: Discontinued Problem List Condition Confirmation Course Effective Dates Status Health St atus Informant Severe obesity Confirmed Active Results Orders for Microbiology Reports Name Date Sputum Culture w/ Gram Smear 02/15/23 Blood Culture 02/14/23 Blood Culture #2 02/14/23 Microbiology Reports TEST:Sputum Culture STATUS:Auth (Verified) BODY SITE: SOURCE:ENDOTR COLLECTED DATE/TIME:02/15/23 2:40 AM Sputum Culture SPECIMEN DESCRIPTION : ENDOTRACHEAL ASPIRATE SPECIAL REQUESTS : NONE GRAM STAIN : 2+ POLYMORPHONUCLEAR LEUKOCYTES 1+ GRAM POSITIVE COCCI 1+ GRAM NEGATIVE RODS CULTURE : 2+ NORMAL ALLIE REPORT STATUS : FINAL 02/17/2023 TEST:Blood Culture, Second Order STATUS:Auth (Verified) BODY SITE: SOURCE:Blood COLLECTED DATE/TIME:02/14/23 4:40 PM Blood Culture, Second Order SPECIMEN DESCRIPTION : BLOOD NO SITE SPECIAL REQUESTS : NONE CULTURE : NO GROWTH 5 DAYS. REPORT STATUS : FINAL 02/19/2023 TEST:Blood Culture STATUS:Auth (Verified) BODY SITE: SOURCE:Blood COLLECTED DATE/TIME:02/14/23 4:00 PM Blood Culture SPECIMEN DESCRIPTION : BLOOD LAC SPECIAL REQUESTS : NONE CULTURE : NO GROWTH 5 DAYS. REPORT STATUS : FINAL 02/19/2023 Radiology Reports * Exam Date Time Procedure Performing Provider Status 02/23/23 9:[address] Ext Lower W/O Contrast Right Stephanie Sorensen; Auth (Verified) Notes: (CT Ext Lower W/O Contrast Right) Reason For Exam: Thigh hematoma;Other: RESULT: CT Ext Lower W/O Contrast Right CT Ext Lower W/O Contrast Right Reason: Other:; Thigh hematoma; Clinical Question(s): Hip; Special Instructions: Please have CT extend to the knee. Area of concern is from hip to knee; Order Comment: Patient initially presented as trauma, CT scan 02/14/2023 was concerning for myositis in the right gluteal region. s/p right gluteal and thigh fasciotomies 02/14/23. TECHNIQUE: Helical CT of the right thigh without contrast formatted in 3 planes. Weight-based protocol using automatic tube modulation was used to optimize exposure parameters. CTDIvol Body: 21.89 mGy, DLP Body: 1174 mGy*cm. COMPARISONS: CT of the right hip from earlier today. FINDINGS: Bones and joints: No acute fracture or subluxation. No bony destruction. Right femoral prosthesis with a distal screw in the distal femur is intact. Soft Tissues: Redemonstrated is diffuse edema of the right gluteal musculature, which may be postoperative and/or related to myositis, rhabdomyolysis. Extending from the right lateral hip to the distal supracondylar right femur, there is a large anterior lateral subcutaneous heterogeneous collection consistent with hematoma, measuring [id number] cm craniocaudal x up to 4 cm transverse x up to 9 cm AP. This exerts mass effect on the underlying musculature. There is diffuse marked subcutaneous swelling/edema throughout. Unchanged small amount of presacral fluid. IMPRESSION: Large right lateral hip to the distal supracondylar right femur anterior lateral subcutaneous hematoma approximately 34 cm craniocaudal x4 cm x 9 cm, exerting mass effect on the underlying musculature. Diffuse marked subcutaneous swelling/edema, cellulitis is not excluded. WSN: [id number] Ordering Physician: Mel Burns Dictated By: Kamille Baldwin MD Dictated Date/Time: 02/23/23 9:57 am Reviewed By: Kamille Baldwin MD Signed By: Kamille Baldwin MD Signed Date/Time: 02/23/23 9:57 am Transcribed By: ALVIN Transcribed Date/Time: 02/23/23 9:38 am * Exam Date Time Procedure Performing Provider Status 02/23/23 1:[address] Ext Lower W/O Contrast Right Lewis Snowden (Verified) Notes: (CT Ext Lower W/O Contrast Right) Reason For Exam: hematoma;Other: RESULT: CT Ext Lower W/O Contrast Right CT Ext Lower W/O Contrast Right Reason: hematoma. Clinical Question(s): Hip. Patient initially presented as trauma, CT scan 02/14/2023 was concerning for myositis in the right gluteal region. s/p right gluteal and thigh fasciotomies with Dr. Guadalupe on 02/14/23. TECHNIQUE: Helical CT without contrast of the right hip formatted in 3 planes. Weight-based protocol using automatic tube modulation was used to optimize exposure parameters. CTDIvol Body: 6.70 mGy, DLP Body: 178 mGy*cm. COMPARISONS: CT of abdomen and pelvis 02/14/2023 FINDINGS: Bones and joints: No acute fracture or subluxation. Partially visualized right femoral shaft prosthesis. There is a small smooth bony fragment at the anterior acetabulum, image 63 of series 206, chronic appearing. Soft Tissues: The right gluteal musculature is diffusely edematous with obscured fascial planes, progressing fromprior, which may be postoperative and/or relating to myositis, rhabdomyolysis. There is diffuse subcutaneous swelling/edema in the right hip/thigh. There is a large right anterior lateral hip-upper thigh subcutaneous heterogeneous collection consistent with hematoma, measuring 16 cm craniocaudal x3.2 cm transverse x9 cm AP, image 48, 47 of series 204 and image 69 of series 202. There is a possible right gluteal medius/minimus intramuscular hematoma, incompletely imaged, about4.5 x 3.1 cm, image 1 of series 202. Bladder is unremarkable. There is small amount presacral fluid. IMPRESSION: Diffusely edematous and ill-defined right gluteal musculature, which may be postoperative and/or relating to myositis, rhabdomyolysis. Large right anterolateral hip-upper thigh subcutaneous hematoma,16 cm craniocaudal x3.2 cm transverse x9 cm AP. Incompletely imaged possible right gluteal medius/minimus intramuscular hematoma, about 4.5 x 3.1 cm. Diffuse subcutaneous swelling/edema in the right hip/thigh. This is nonspecific, cellulitis is not excluded. Results were relayed by attending radiologist to Mel Burns NP on 02/23/2023 8:20 AM. I have personally reviewed the images and I agree with this report. WSN: [id number] Ordering Physician: Mel Burns Dictated By: Morgan Appiah MD Dictated Date/Time: 02/23/23 8:37 am Reviewed By: Kamille Baldwin MD Signed By: Kamille Baldwin MD Signed Date/Time: 02/23/23 8:42 am Transcribed By: ALVIN Transcribed Date/Time: 02/23/23 1:40 am * Exam Date Time Procedure Performing Provider Status 02/15/23 12:[address] Soft Tissue Neck W/ Contrast Guillermina Soto; Auth (Verified) Notes: (CT Soft Tissue Neck W/ Contrast) Reason For Exam: Abscess/Inflammation;Abscess/Inflammation RESULT: CT Soft Tissue Neck W/ Contrast CT Soft Tissue Neck W/ Contrast INDICATION/CLINICAL QUESTION: Reason: Abscess Inflammation; expiratory stridor, possible laryngospasm. Sepsis with possible infection of the right mandible and face. Clinical Question(s): Abscess; Order Comment: / Abscess. TECHNIQUE: Spiral CT neck with IV contrast formatted in 3 planes. 100 cc of Omnipaque 300 was administered intravenously. Weight-based protocol using automatic tube modulation was used to optimize exposure parameters. CTDIvol Body: 8.80 mGy, DLP Body: 332 mGy*cm. COMPARISON: FINDINGS: Broadband Engineer View Findings, Lines and Tubes: Orogastric and endotracheal tubes are in place Intracranial structures: Visualized portions are unremarkable. Orbits: Visualized portions are unremarkable. Paranasal sinuses and mastoids: Visualized portions are clear. Mucosal surfaces: Mucosal surfaces appear normal and symmetric, including the pharynx, larynx, and visualized portions of the upper trachea and esophagus. Superficial and deep neck spaces: There is soft tissue infiltration of the subcutaneous fat in the right lateral face and upper neck, extending from the angle of the mandible through the hyoid level.Mild diffuse soft tissue swelling is present. There is some obscuration of fat planes at the deep and posterior margins of the sternocleidomastoid muscle and the posterior margin of the masseter. Involvement does not extend into deeper fat planes and the carotid sheath structures are normal. No discrete abscess is noted. Cervical lymph nodes: Normal in size and morphology. Salivary glands: The parotid glands and submandibular glands are normal. Thyroid gland: Normal CT appearance Vascular structures: Unremarkable. Upper chest: Small areas of parenchymal disease in the posterior aspect of either upper lobe could reflect atelectasis. The upper mediastinum is unremarkable. Bones and teeth: No periapical lucencies are noted in the maxilla or mandible. No bone destruction is present. There is no evidence of osteomyelitis. IMPRESSION: Soft tissue infiltration of subcutaneous fat in the right lower face and upper neck with minor involvement of some of the fat planes about the sternocleidomastoid muscle and masseter. The appearance is consistent with cellulitis. No discrete abscess is noted. There is no evidence for an odontogenicinfection. WSN: [id number] Ordering Physician: Yu Wood Dictated By: Gary Truong MD Dictated Date/Time: 02/15/23 1:01 pm Reviewed By: Gary Truong MD Signed By: Gary Truong MD Signed Date/Time: 02/15/23 1:01 pm Transcribed By: ALVIN Transcribed Date/Time: 02/15/23 12:51 pm * Exam Date Time Procedure Performing Provider Status 02/15/23 12:05 AM Chest Portable Ch , Claudia; Auth (V erified) Notes: (Chest Portable) Reason For Exam: Line Placement RESULT: Chest Portable Chest Portable 11:56 PM Reason: Line Placement; Clinical Question(s): Line Placement COMPARISON: 02/06/2023 at 4:12 PM. FINDINGS: LINES AND TUBES: Endotracheal tube terminates 5.4 cm above the estrada. Enteric tube terminates in the left upper quadrant, likely in the stomach. The sidehole is at the level of the GE junction. LUNGS AND PLEURA: There is a poorly defined opacity in right lower lobe. The left lung is clear. No pleural effusion. No pneumothorax. HEART, MEDIASTINUM AND PIERO: Heart is normal in size. Normal mediastinal and hilar contour. BONES AND SOFT TISSUES: No acute abnormality. IMPRESSION: Enteric tube sidehole is at the level of the GE junction and could be advanced by 2 to 3 cm. Right lower lobe opacity likely represents pneumonia in the appropriate clinical setting. An actionable message ([place]) has been communicated via the [employer] system on 02/15/2023 7:29 AM, Message ID [id number]. WSN: [id number] Ordering Physician: Ashlee Lopez Dictated By: Elizabeth Agarwal MD Dictated Date/Time: 02/15/23 7:29 am Reviewed By: Elizabeth Agarwal MD Signed By: Elizabeth Agarwal MD Signed Date/Time: 02/15/23 7:29 am Transcribed By: ALVIN Transcribed Date/Time: 02/15/23 7:27 am * Exam Date Time Procedure Performing Provider Status 02/14/23 4:50 PM Chest Portable Ashley Vicente; Auth (V erified) Notes: (Chest Portable) Reason For Exam: Shortness of Breath RESULT: Chest Portable Chest Portable Hx of Present Illness: fall; Reason: Shortness of Breath; Clinical Question(s): Pneumonia COMPARISON: None. FINDINGS: LINES AND TUBES: Monitoring leads project over the chest. LUNGS AND PLEURA: Clear lungs. Normal pulmonary vascularity. No pleural effusion. No pneumothorax. HEART, MEDIASTINUM AND PIERO: Heart is normal in size. Normal mediastinal and hilar contour. BONES AND SOFT TISSUES: No acute abnormality. IMPRESSION: No acute abnormality. WSN: [id number] Ordering Physician: Irineo Jacobs Dictated By: Amilcar Allen MD Dictated Date/Time: 02/14/23 4:58 pm Reviewed By: Amilcar Allen MD Signed By: Amilcar Allen MD Signed Date/Time: 02/14/23 4:58 pm Transcribed By: ALVIN Transcribed Date/Time: 02/14/23 4:56 pm * Exam Date Time Procedure Performing Provider Status 02/14/23 3:[address] Cervical Spine W/O Contrast Colon , Elise; Auth (Verified) Notes: (CT Cervical Spine W/O Contrast) Reason For Exam: Neck trauma, dangerous injury mechanism;Other: RESULT: CT Cervical Spine W/O Contrast CT Head/Brain W/O Contrast, CT Cervical Spine W/O Contrast INDICATION: fall; Reason: Trauma; Clinical Question(s): Hematoma TECHNIQUE: Noncontrast head CT using axial technique was reconstructed in axial and coronal planes.Noncontrast spiral CT through the cervical spine was formatted in 3 planes. Automatic tube modulation was used for the cervical spine and iterative dose reconstruction was used for both the head and cervical spine to optimize scan parameters and image quality. CTDIvol Body: 12.27 mGy, DLP Body: 329 mGy*cm. CTDIvol Head: 48.28 mGy, DLP Head: 917 mGy*cm. COMPARISON: None. FINDINGS: Broadband Engineer View Findings, Lines and Tubes: None. BRAIN AND EXTRA-AXIAL SPACES: No parenchymal hemorrhage, midline shift, or mass effect. Harry-white matter differentiation is wellpreserved. No acute infarct. Negative insular ribbon and hyperdense vessel signs. Bifrontal encephalomalacia at the vertex. Right frontal encephalomalacia anteriorly. Ventricles, sulci, and basilar cisterns are normal. No white matter lesions. No subarachnoid hemorrhage. No subdural or epidural collection. CALVARIUM, SKULL BASE, AND SOFT TISSUES: No fractures or suspicious bony lesions. Minimal mucosal thickening of the right maxillary sinus. The remainder of the paranasal sinuses andmastoid air cells are clear. Visualized orbits and globes are intact. The extracranial soft tissues are unremarkable. CERVICAL SPINE: No fracture. No acute osseous abnormalities. Normal alignment. No locked or perched facet. Mild multilevel degenerative disc space narrowing andend plate irregularity. OTHER BONES: No acute abnormality. CERVICAL SOFT TISSUES AND LUNG APICES: Normal soft tissues. Visualized lung apices are clear. IMPRESSION: No acute abnormality of the head or cervical spine. Bifrontal encephalomalacia compatible with remote insult. I have personally reviewed the images and I agree with this report. WSN: [id number] Ordering Physician: Irineo Jacobs Dictated By: Abimbola Moscoso MD Dictated Date/Time: 02/14/23 4:03 pm Reviewed By: Cory Kumar MD Signed By: Cory Kumar MD Signed Date/Time: 02/14/23 4:08 pm Transcribed By: ALVIN Transcribed Date/Time: 02/14/23 3:48 pm * Exam Date Time Procedure Performing Provider Status 02/14/23 3:[address] Head/Brain W/O Contrast Colon , Tat andreea; Auth (Verified) Notes: (CT Head/Brain W/O Contrast) Reason For Exam: Trauma RESULT: CT Head/Brain W/O Contrast CT Head/Brain W/O Contrast, CT Cervical Spine W/O Contrast INDICATION: fall; Reason: Trauma; Clinical Question(s): Hematoma TECHNIQUE: Noncontrast head CT using axial technique was reconstructed in axial and coronal planes.Noncontrast spiral CT through the cervical spine was formatted in 3 planes. Automatic tube modulation was used for the cervical spine and iterative dose reconstruction was used for both the head and cervical spine to optimize scan parameters and image quality. CTDIvol Body: 12.27 mGy, DLP Body: 329 mGy*cm. CTDIvol Head: 48.28 mGy, DLP Head: 917 mGy*cm. COMPARISON: None. FINDINGS: Broadband Engineer View Findings, Lines and Tubes: None. BRAIN AND EXTRA-AXIAL SPACES: No parenchymal hemorrhage, midline shift, or mass effect. Harry-white matter differentiation is wellpreserved. No acute infarct. Negative insular ribbon and hyperdense vessel signs. Bifrontal encephalomalacia at the vertex. Right frontal encephalomalacia anteriorly. Ventricles, sulci, and basilar cisterns are normal. No white matter lesions. No subarachnoid hemorrhage. No subdural or epidural collection. CALVARIUM, SKULL BASE, AND SOFT TISSUES: No fractures or suspicious bony lesions. Minimal mucosal thickening of the right maxillary sinus. The remainder of the paranasal sinuses andmastoid air cells are clear. Visualized orbits and globes are intact. The extracranial soft tissues are unremarkable. CERVICAL SPINE: No fracture. No acute osseous abnormalities. Normal alignment. No locked or perched facet. Mild multilevel degenerative disc space narrowing andend plate irregularity. OTHER BONES: No acute abnormality. CERVICAL SOFT TISSUES AND LUNG APICES: Normal soft tissues. Visualized lung apices are clear. IMPRESSION: No acute abnormality of the head or cervical spine. Bifrontal encephalomalacia compatible with remote insult. I have personally reviewed the images and I agree with this report. WSN: [id number] Ordering Physician: Irineo Jacobs Dictated By: Abimbola Moscoso MD Dictated Date/Time: 02/14/23 4:03 pm Reviewed By: Cory Kumar MD Signed By: Cory Kumar MD Signed Date/Time: 02/14/23 4:08 pm Transcribed By: ALVIN Transcribed Date/Time: 02/14/23 3:48 pm * Exam Date Time Procedure Performing Provider Status 02/14/23 3:[address] Lumbar Spine W/ Contrast Colon , Ta kyle; Auth (Verified) Notes: (CT Lumbar Spine W/ Contrast) Reason For Exam: Spine fracture, lumbar, traumatic;Other: RESULT: CT Lumbar Spine W/ Contrast CT Abd/Pelvis W/ IV Contrast Only, CT Lumbar Spine W/ Contrast HX OF PRESENT ILLNESS: fall; Abd trauma, blunt; Clinical Question(s): solid organ injury, perforation free fluid TECHNIQUE: Spiral CT through the abdomen and pelvis with IV contrast formatted in 3 planes. 100 cc of Omnipaque 300 was administered intravenously. This study was performed without oral contrast. Weight-based protocol using automatic tube modulation was used to optimize exposure parameters. CTDIvol Body: 9.32 mGy, DLP Body: 504 mGy*cm. COMPARISON: None. FINDINGS: Broadband Engineer View Findings, Lines and Tubes: None. Visualized Chest: Consolidative opacity in the right lower lobe. Patchy opacities in the left lowerlobe. No pleural effusion. No pericardial effusion. Diaphragm: Normal. Liver: Normal. Gallbladder: No CT evidence of gallbladder pathology. Bile ducts: No biliary ductal dilation. Spleen: Normal. Pancreas: Normal. Adrenal glands: Normal. Kidneys and ureters: No hydronephrosis, stones, or suspicious masses. Bladder: Normal. Reproductive organs: Unremarkable. Stomach, small bowel, and large bowel: Normal caliber stomach. The bowel loops are fluid-filled. The small bowel is largely decompressed. The large bowel demonstrates multiple air-fluid levels without any focal area of obstruction. Bowel jurado are normally enhancing. Appendix: Not seen, but no evidence of appendicitis. Peritoneum and retroperitoneum: No ascites or pneumoperitoneum. No omental or mesenteric lesions. Lymph nodes: No enlarged lymph nodes. Blood vessels: Normal. No aneurysm. No evidence of venous thrombosis. Abdominal and pelvic wall: Diffuse mild enlargement of the right gluteal musculature which appears edematous. No focal hematoma. Bones: No acute abnormality. IMPRESSION: 1. Bilateral lower lobes airspace opacities, more confluent on the right, suggestive of multifocal pneumonia, possibly aspiration pneumonia. 2. Fluid throughout the colon suggests a diarrheal illness. No overt colitis. 3. Subtle edema and mild expansion throughout the right gluteal musculature suggests myositis. Correlate clinically for rhabdomyolysis. Findings relayed through secure messaging to Dr. Jacobs at [place] on 02/06/2023 at 3:58 PM. I have personally reviewed the images and I agree with this report. WSN: [id number] Ordering Physician: Irineo Jacobs Dictated By: Abimbola Moscoso MD Dictated Date/Time: 02/14/23 4:00 pm Reviewed By: Cory Kumar MD Signed By: Cory Kumar MD Signed Date/Time: 02/14/23 4:05 pm Transcribed By: ALVIN Transcribed Date/Time: 02/14/23 3:44 pm * Exam Date Time Procedure Performing Provider Status 02/14/23 3:[address] Abd/Pelvis W/ IV Contrast Only [place] , Elise; Auth (Verified) Notes: (CT Abd/Pelvis W/ IV Contrast Only) Reason For Exam: Abd trauma, blunt;Other: RESULT: CT Abd/Pelvis W/ IV Contrast Only CT Abd/Pelvis W/ IV Contrast Only, CT Lumbar Spine W/ Contrast HX OF PRESENT ILLNESS: fall; Abd trauma, blunt; Clinical Question(s): solid organ injury, perforation free fluid TECHNIQUE: Spiral CT through the abdomen and pelvis with IV contrast formatted in 3 planes. 100 cc of Omnipaque 300 was administered intravenously. This study was performed without oral contrast. Weight-based protocol using automatic tube modulation was used to optimize exposure parameters. CTDIvol Body: 9.32 mGy, DLP Body: 504 mGy*cm. COMPARISON: None. FINDINGS: Broadband Engineer View Findings, Lines and Tubes: None. Visualized Chest: Consolidative opacity in the right lower lobe. Patchy opacities in the left lowerlobe. No pleural effusion. No pericardial effusion. Diaphragm: Normal. Liver: Normal. Gallbladder: No CT evidence of gallbladder pathology. Bile ducts: No biliary ductal dilation. Spleen: Normal. Pancreas: Normal. Adrenal glands: Normal. Kidneys and ureters: No hydronephrosis, stones, or suspicious masses. Bladder: Normal. Reproductive organs: Unremarkable. Stomach, small bowel, and large bowel: Normal caliber stomach. The bowel loops are fluid-filled. The small bowel is largely decompressed. The large bowel demonstrates multiple air-fluid levels without any focal area of obstruction. Bowel jurado are normally enhancing. Appendix: Not seen, but no evidence of appendicitis. Peritoneum and retroperitoneum: No ascites or pneumoperitoneum. No omental or mesenteric lesions. Lymph nodes: No enlarged lymph nodes. Blood vessels: Normal. No aneurysm. No evidence of venous thrombosis. Abdominal and pelvic wall: Diffuse mild enlargement of the right gluteal musculature which appears edematous. No focal hematoma. Bones: No acute abnormality. IMPRESSION: 1. Bilateral lower lobes airspace opacities, more confluent on the right, suggestive of multifocal pneumonia, possibly aspiration pneumonia. 2. Fluid throughout the colon suggests a diarrheal illness. No overt colitis. 3. Subtle edema and mild expansion throughout the right gluteal musculature suggests myositis. Correlate clinically for rhabdomyolysis. Findings relayed through secure messaging to Dr. Jacobs at [place] on 02/06/2023 at 3:58 PM. I have personally reviewed the images and I agree with this report. WSN: [id number] Ordering Physician: Irineo Jacobs Dictated By: Abimbola Moscoso MD Dictated Date/Time: 02/14/23 4:00 pm Reviewed By: Cory Kumar MD Signed By: Cory Kumar MD Signed Date/Time: 02/14/23 4:05 pm Transcribed By: ALVIN Transcribed Date/Time: 02/14/23 3:44 pm Vital Signs Most recent to oldest [Reference Range]: 1 2 3 Height 57.9 cm (03/04/23 7:13 AM) 57.9 cm (03/03/23 10:50 PM) 57.9 cm (03/03/23 7:00 PM) Weight 60.9 kg (03/04/23 6:34 AM) 60.9 kg (03/04/23 6:04 AM) 61.6 kg (03/03/23 6:42 AM) Oxygen Saturation [94-100 %] 98 % (03/04/23 7:13 AM) 100 % (03/03/23 10:50 PM) 100 % (03/03/23 7:00 PM) Pulse Rate [55-90 bpm] 89 bpm (03/04/23 7:13 AM) 101 bpm *H* (03/03/23 10:50 PM) 91 bpm *H* (03/03/23 7:00 PM) Body Mass Index [18.5-24.99 kg/m2] 172.71 kg/m2 *>HHI* (03/01/23 9:52 AM) 172.71 kg/m2 *>HHI* (03/01/23 5:59 AM) 23.8 kg/m2 (02/23/23 4:01 PM) Blood Pressure [90-138/55-84 mm Hg] 119/62mm Hg (03/04/23 8:50 AM) 108/65mm Hg (03/04/23 7:13 AM) 102/64mm Hg (03/03/23 10:50 PM) Respiratory Rate [16-30 br/min] 17 br/min (03/04/23 3:07 PM) 17 br/min (03/04/23 2:49 PM) 18 br/min (03/04/23 2:07 PM) Temperature [96.8-100.4 DegF] 98.8 DegF (03/04/23 7:13 AM) 98.2 DegF (03/03/23 10:50 PM) 97.9 DegF (03/03/23 7:00 PM) Liters per Minute 6 L/min (03/01/23 11:45 AM) 4 L/min (02/23/23 7:15 PM) 6 L/min (02/23/23 7:00 PM) Mode of Delivery (Oxygen) Room air (03/04/23 7:13 AM) Room air (03/03/23 10:50 PM) Room air (03/03/23 7:00 PM) Blood pressure sites Arm, right (03/04/23 7:13 AM) Arm, right (03/03/23 10:50 PM) Arm, right (03/03/23 7:00 PM) Temperature Route Oral (03/04/23 7:13 AM) Oral (03/03/23 10:50 PM) Oral (03/03/23 7:00 PM) Dry Weight 60.9 kg (02/17/23 10:42 AM) 60.9 kg (02/14/23 11:25 PM) Weight Obtained Via Bed scale (03/04/23 6:34 AM) Bed scale (03/04/23 6:04 AM) Bed scale (03/03/23 6:42 AM) Note * Event Display: Provider Clarification Note Please click on pdf link to open report * Jennifer Garrido RN: PERFORM Event Display: Discharge/Transfer Note Hospital Authored Date: [id number] Nursing Discharge Note Entered On: 03/04/2023 15:41 EDT Performed On: 03/04/2023 15:40 EDT by Jennifer Garrido RN Nursing Discharge Note 2 Discharge Time : 03/04/2023 15:40 EDT Discharge Level of Care at Discharge : Home/Long Term/Foster Care Patient Left Unit Via : Wheelchair Patient Accompanied Off Unit with : Responsible adult DC Instructions Provided & Signed by Pt : No Patient Understands D/C Instructions : No Verbalized Understanding of D/C Plan By : Significant other Verbalization of Discharge Plan Comments : went over with Patient Instructions Discharge Signed : Yes Discharge Comments : signed by Did Pt have Specialty Bed or Wound Vac : Yes Jennifer Garrido RN - 03/04/2023 15:40 EDT * Chuy CASTELLANO, Alex K: PERFORM Event Display: Discharge/Transfer Note Hospital Authored Date: [id number] Patient: ??ALEXANDRE BAEZA ? Age:??48 Years?Sex:??Male?:??1975?? Patient Information Discharge Location: W3 Primary Care Physician: Not on Staff, PCP Admit Date/Time: 02/14/23 19:24 Discharge Disposition Discharge Disposition: Home: No Services _ Discharge Medications Oxycodone (oxyCODONE 5 mg oral tablet)?2.5?Milligram?0.5?tablet?By Mouth?Every 6 hours?as needed?for 5?Days?as needed for pain ? Quality Measures Tobacco Use Treatment:? Durable Medical Equipment Discharge recommendations: Home with services (02/22/23) Ambulatory devices needed: Walker (03/04/23) ? Allergies Allergies ?(Active and Proposed Allergies Only) NKA? (Severity: Unknown severity, Onset: Unknown) ? Stroke Onset Details Alteplase: 1 mg Alteplase: 1 mg ?? Future Appointments 2022 10:00 AM EDT ?? With: Liberty Plascencia MD Where: [facility] [address] [place] [address]- Status: Pending Hospital Course ??48-year-old male with??history of polysubstance use, congenital deafness presented to the hospital on??February 14 after being found down.?? Reportedly used cocaine??and was found by a friend after being down on the floor for roughly 24 hours. Admitted for right gluteal and thigh compartment syndrome,s/p right gluteal and thigh fasciotomies with Dr. Guadalupe on 02/14/23, with subsequent closure on 02/17. After his procedure, he was unable to be extubated??successfully in??PACU?? (reintubated due to stridor and wheezing) and was sent??to the medical ICU for further care. ??Underwent emergent dialysisfor severe hyperkalemia??on the night of admission.?? Postoperative course complicated by acute blood loss anemia requiring transfusions with CT evdience of thigh hematoma for which he is now s/p operative R leg wound exploration, hematoma evacuation and wound vac placement on 02/23. No identifiable source of bleeding noted with surface diffuse oozing suspecting coagulopathy, now s/p R wound closure 03/[address] Spencer.?his h/h remained stable now he is stable for discharge.? Acute blood loss anemia. Right gluteus medius/minimus intramuscular hematoma and large right anterolateral hip???upper thigh subcutaneous hematoma post surgical . hb stable. ?? Compartment syndrome of R gluteus s/p fasciotomy 02/14?? & wound closure on 02/17 and rt would post closer 03/01. plan: Wound care: xeroform over suture line only with dry sterile gauze and medipore tape Wound care at home: dry sterile gauze if needed or leave open to air F/u in office arranged 03/18 with trauma surgery. ?? Acute kidney injury, ADRIAN class 3 requiring hemodialysis-RESOLVED Rhabdomyolysis resolved.?? Hyponatremia; Secondary to severe rhabdomyolysis. Patient??had??emergent dialysis sessions on 02/14&02/15 - RESOLVED -Dc ramachandran on 02/21 patieent creatinien back to baseline today 0.7 ?? Aspiration pneumonia: treated.?? Transaminitis??improved ??-Likely secondary to rhabdomyolysis ?? Objective Assessment and Plan Discharge Planning:? Vital Signs?? Temperature: 98.8 DegF (03/04/23 07:13:00) Temperature Route: Oral (03/04/23 07:13:00) Pulse Rate: 89 bpm (03/04/23 07:13:00) Respiratory Rate: 17 br/min (03/04/23 08:50:00) Respiratory Rate: 17 br/min (03/04/23 08:50:00) Systolic Blood Pressure: 119 mm Hg (03/04/23 08:50:00) Diastolic Blood Pressure: 62 mm Hg (03/04/23 08:50:00) Blood pressure sites: Arm, right (03/04/23 07:13:00) Mean Arterial Pressure: 79 mm Hg (03/04/23 07:13:00) Pulse Pressure: 43 mm Hg (03/04/23 07:13:00) Oxygen Saturation: 98 % (03/04/23 07:13:00) Mode of Delivery (Oxygen): Room air (03/04/23 07:13:00) Early Warning Score: 4 (03/04/23 08:53:41) ? . Physical Exam General: Awake, not in??distress Cardiac: RRR, no murmurs, Pulmonary: Normal breathing sounds bilaterally with good air entry with??no wheezing or??rhonchi Abdominal: No tenderness or rebound tenderness, normal BS, no HSM Skin: No rashes, jaundice or scratching hester Extremities: rt gluteal thigh wound dressed. ,??no erythema or tensity Neuro: awake, alert, no focal weakness. Surgical Procedures Fasciotomy Lower Extremity 02/14/2023 20:50 Wound Closure 02/17/2023 11:32 Evacuation Hematoma Lower Extremity 02/23/2023 17:56 Wound Closure 03/01/2023 11:05 Pending Results Add On Lab Order ordered on 02/14/2023 Add On Lab Order ordered on 02/15/2023 Add On Lab Order ordered on 02/15/2023 Add On Lab Order ordered on 02/23/2023 Add On Lab Order ordered on 02/25/2023 Add On Lab Order ordered on 02/27/2023 Add On Lab Order ordered on 03/03/2023 Add On Lab Order ordered on 03/03/2023 Basic Metabolic Panel ordered on 02/15/2023 Hold Gel Top Tube ordered on 03/01/2023 Transfuse RBCs ordered on 02/25/2023 Transfuse RBCs ordered on 02/27/2023 Patient Instructions Postop Wound Instruction: -Keep the incision clean and dry. Can leave open to air, or cover with dry dressing to prevent soilage of clothes. When to call the office: -Call the office for further instructions if you develop: increased swelling, redness with warmth, purulent drainage, or fevers??>101.4 IF YOU HAVE ANY QUESTIONS OR PROBLEMS, PLEASE CALL THE SURGICAL OFFICE Home Health Face to Face ^HomeHealthFTF Results Discharge Labs BACTERIOLOGY MRSA PCR Result Negative, MRSA target DNA not detected. ()?? 02/15/2023 02:40 S Aureus ??PCR Result Positive, SA target DNA detected. ()?? 02/15/2023 02:40 ?? BLOOD BANK Blood Type B Positive ()?? 02/27/2023 11:09 Antibody Screen Negative ()?? 02/27/2023 11:09 RBC Unit ID [id number] ()?? 02/27/2023 13:42 RBC Available PT ()?? 02/27/2023 13:42 ?? BLOOD COUNT & DIFF WBC 3.3 k/mm3 (Low)?? 03/04/2023 05:42 RBC 2.80 m/mm3 (Low)?? 03/04/2023 05:42 Hgb 8.1 Gm/dL (Low)?? 03/04/2023 05:42 Hct 24.9 % (Low)?? 03/04/2023 05:42 MCV 88.9 femtoliters ()?? 03/04/2023 05:42 MCH 28.9 pg ()?? 03/04/2023 05:42 MCHC 32.5 g/dL (Low)?? 03/04/2023 05:42 Platelet Count 237 k/mm3 ()?? 03/04/2023 05:42 RDW-SD 46.1 femtoliters ()?? 03/04/2023 05:42 MPV 9.2 femtoliters (Low)?? 03/04/2023 05:42 Nucleated RBC (Automated) 0.0 #/100 WBC'S ()?? 03/04/2023 05:42 Abs. NRBC 0.0 k/mm3 ()?? 03/04/2023 05:42 Abs. Neut 5.3 k/mm3 ()?? 02/21/2023 08:04 Abs. Lymph 0.4 k/mm3 (Low)?? 02/21/2023 08:04 Abs. [place] 0.4 k/mm3 ()?? 02/21/2023 08:04 Abs. Eo 0.1 k/mm3 ()?? 02/21/2023 08:04 Abs. Baso 0.0 k/mm3 ()?? 02/21/2023 08:04 Neut % 81.0 % (High)?? 02/21/2023 08:04 Lymph % 6.0 % (Low)?? 02/21/2023 08:04 [place] % 7.0 % ()?? 02/21/2023 08:04 Eos % 1.0 % ()?? 02/21/2023 08:04 Baso % 0.0 % ()?? 02/21/2023 08:04 Myelocytes % 1.0 % ()?? 02/21/2023 08:04 Metamyelocyte % 2.0 % ()?? 02/20/2023 04:21 Band % 4.0 % ()?? 02/21/2023 08:04 Platelet Estimate ADEQUATE ()?? 02/21/2023 08:04 Hemoglobin (POC) POC Cartridge 12.2 Gm/dL (Low)?? 02/14/2023 22:40 Hematocrit (POC) POC Cartridge 36 % (Low)?? 02/14/2023 22:40 Retic Count 3.3 % (High)?? 02/25/2023 02:53 Retic Count Corrected 1.4 % ()?? 02/25/2023 02:53 Retic Production Index 0.7 % (Low)?? 02/25/2023 02:53 Imm Gran 0.9 % ()?? 02/14/2023 13:40 Abs. Imm Gran 0.1 k/mm3 ()?? 02/14/2023 13:40 ? BLOOD GAS pH (POC) POC Cartridge 7.28 (Low)?? 02/14/2023 22:40 pCO2 (POC) POC Cartridge 37.3 mm Hg ()?? 02/14/2023 22:40 pO2 (POC) POC Cartridge 99 mm Hg (High)?? 02/14/2023 22:40 Estimated Bicarbonate (POC) POC Cart 17.6 mmol/L (Low)?? 02/14/2023 22:40 % O2 Sat Arterial (POC) POC Cartridge 97 % ()?? 02/14/2023 22:40 Lactate, (POC) POC Cartridge 0.7 mmol/L ()?? 02/14/2023 22:47 pH Venous (POC) POC Cartridge 7.34 ()?? 02/14/2023 18:42 pCO2 Venous (POC) POC Cartridge 33.8 mm Hg (Low)?? 02/14/2023 18:42 pO2 Venous (POC) POC Cartridge 73 mm Hg (High)?? 02/14/2023 18:42 Est Bicarbonate (POC) POC Cartridge 18.4 mmol/L (Low)?? 02/14/2023 18:42 % O2 Sat Venous (POC) POC Cartridge 94 ()?? 02/14/2023 18:42 Base Excess (POC) POC Cartridge NEGATIVE 9 ()?? 02/14/2023 22:40 pH 7.31 (Low)?? 02/15/2023 00:18 pCO2 34 mm Hg (Low)?? 02/15/2023 00:18 pO2 117 mm Hg (High)?? 02/15/2023 00:18 Bicarbonate, Estimated 17 mmol/L (Low)?? 02/15/2023 00:18 Specimen Type - Blood Gas ARTERIAL ()?? 02/15/2023 00:18 Percent O2 (FIO2) 60 ()?? 02/15/2023 00:18 ?? CARDIAC CK, Total 7136 units/L (High)?? 02/18/2023 05:50 CK MB Confirmation - Quant 403.0 ng/mL (High)?? 02/15/2023 04:07 Nt-Probnp 4559 pg/mL (High)?? 02/14/2023 18:11 High Sensitivity Troponin (HSTnT) 83 ng/L (Critical)?? 02/14/2023 22:56 ?? CHEM GENERAL Sodium 135 mmol/L ()?? 03/04/2023 05:45 Potassium 4.7 mmol/L ()?? 03/04/2023 05:45 Chloride 102 mmol/L ()?? 03/04/2023 05:45 Bicarbonate Level 26 mmol/L ()?? 03/04/2023 05:45 Anion Gap 7 ()?? 03/04/2023 05:45 Sodium (POC) POC Cartridge 127 mmol/L (Low)?? 02/14/2023 22:40 Potassium (POC) POC Cartridge 6.3 mmol/L (Critical)?? 02/14/2023 22:40 Glucose Level 83 mg/dL ()?? 03/03/2023 05:35 Glucose (POC) POC Cartridge 113 (High)?? 02/14/2023 22:40 Glucose, POC 142 mg/dL (High)?? 02/21/2023 16:29 BUN 15 mg/dL ()?? 03/04/2023 05:45 Creatinine-Blood 0.9 mg/dL ()?? 03/04/2023 05:45 Estimated GFR Creatinine 107 ML/MIN/1.73 M2 ()?? 03/04/2023 05:45 Calcium 6.2 mg/dL (Low)?? 03/04/2023 05:45 Calcium, Ionized pH Corrected 0.86 mmol/L (Low)?? 03/03/2023 14:05 Ionized Calcium (POC) POC Cartridge 0.95 mmol/L (Critical)?? 02/14/2023 22:40 Phosphorus 6.3 mg/dL (High)?? 02/18/2023 05:50 Magnesium 1.5 mg/dL (Low)?? 03/04/2023 05:45 Protein, Total 5.5 Gm/dL (Low)?? 03/02/2023 04:10 Albumin 2.8 Gm/dL (Low)?? 03/02/2023 04:10 AG Ratio 0.9 ()?? 02/19/2023 05:30 LDH 484 units/L (High)?? 02/27/2023 07:51 Alkaline Phosphatase 70 units/L ()?? 03/02/2023 04:10 Lipase 51 units/L ()?? 02/14/2023 13:40 AST (SGOT) 67 units/L (High)?? 03/02/2023 04:10 ALT (SGPT) 55 units/L (High)?? 03/02/2023 04:10 Bilirubin, Total 0.3 mg/dL ()?? 03/02/2023 04:10 Bilirubin, Direct <0.2 mg/dL ()?? 03/02/2023 04:10 Bilirubin, Indirect Direct bilirubin is less than the measureable limit. Therefore, indirect mg/dL ()?? 03/02/2023 04:10 Lactate 0.9 mmol/L ()?? 02/14/2023 22:56 Iron Level 28 mcg/dL (Low)?? 02/25/2023 01:39 Ferritin Level 535 ng/mL (High)?? 02/25/2023 01:39 ?? COAG INR 1.0 ()?? 02/27/2023 07:51 Protime (PT) 10.7 seconds ()?? 02/27/2023 07:51 APTT 31.2 seconds ()?? 02/14/2023 13:40 ? HEME OTHER Hold Lavender Top SPECIMEN DISCARDED AFTER 24 HOURS. ()?? 02/28/2023 02:38 Hold Lavender Top 2 SPECIMEN DISCARDED AFTER 24 HOURS. ()?? 02/14/2023 15:55 ?? IMMUNOLOGY GENERAL Haptoglobin 61 mg/dL ()?? 02/25/2023 12:18 ? LIPID STUDIES Cholesterol 138 mg/dL ()?? 02/14/2023 22:56 Triglycerides 239 mg/dL (High)?? 02/14/2023 22:56 HDL Cholesterol 32 mg/dL (Low)?? 02/14/2023 22:56 LDL Cholesterol 58 mg/dL ()?? 02/14/2023 22:56 Non HDL Cholesterol 106 mg/dL ()?? 02/14/2023 22:56 ? MISC. CHEMISTRY 25 OH-Vitamin D Level 10.8 ng/mL (Low)?? 03/03/2023 05:35 Ammonia, Venous 39 ??mole/L ()?? 02/14/2023 18:26 Hold Green Top SPECIMEN DISCARDED AFTER 1 WEEK ()?? 02/14/2023 13:40 Hold Red Top SPECIMEN DISCARDED AFTER 1 WEEK ()?? 02/14/2023 13:40 Hold Gel Top SPECIMEN DISCARDED AFTER 1 WEEK ()?? 02/23/2023 02:26 ? SEROLOGY INF DISEASE Hepatitis B Surface Antigen NEGATIVE (N)?? 02/14/2023 15:55 Hepatitis B Core Ab, Total POSITIVE (Abnormal)?? 02/14/2023 15:55 Hepatitis C Ab Reactive by screening EIA. (Abnormal)?? 02/14/2023 15:55 Anti-HBS Quant 1.12 mIU/mL ()?? 02/14/2023 15:55 Anti-HAV IgG POSITIVE ()?? 02/14/2023 15:55 ? TOXICOLOGY/TDM Ethanol, Serum or Plasma NONE DETECTED mg/dL ()?? 02/14/2023 13:40 Salicylate Level <0.3 mg/dL (Low)?? 02/14/2023 15:55 Barbiturate Screen, Urine NONE DETECTED ()?? 02/14/2023 16:10 Cannabinoid Screen, Urine NONE DETECTED ()?? 02/14/2023 16:10 Cocaine Metabolite Screen, Urine POSITIVE (Abnormal)?? 02/14/2023 16:10 Benzodiazepine Screen, Urine NONE DETECTED ()?? 02/14/2023 16:10 Amphetamine Screen, Urine NONE DETECTED ()?? 02/14/2023 16:10 Opiate Screen, Urine NONE DETECTED ()?? 02/14/2023 16:10 Acetaminophen Level <5 mg/L (Low)?? 02/14/2023 15:55 ? UA/URINALYSIS Appear/Color, Urine YELLOW ()?? 02/14/2023 16:10 Specific [place], Urine 1.018 ()?? 02/14/2023 16:10 pH, Urine 5.5 ()?? 02/14/2023 16:10 Albumin, Urine 2+ (Abnormal)?? 02/14/2023 16:10 Glucose, Urine TRACE (Abnormal)?? 02/14/2023 16:10 Ketones, Urine NEGATIVE ()?? 02/14/2023 16:10 Bilirubin, Urine NEGATIVE ()?? 02/14/2023 16:10 Hemoglobin, Urine 3+ (Abnormal)?? 02/14/2023 16:10 Nitrite, Urine NEGATIVE ()?? 02/14/2023 16:10 Leukocyte, Urine TRACE (Abnormal)?? 02/14/2023 16:10 Urobilinogen NORMAL mg/dL ()?? 02/14/2023 16:10 WBC's, Urine 1 /HPF ()?? 02/14/2023 16:10 RBC's, Urine 18 /HPF (High)?? 02/14/2023 16:10 Squamous Epith 1 /HPF ()?? 02/14/2023 16:10 Amorphous Crystals SLIGHT /HPF ()?? 02/14/2023 16:10 Mucus SLIGHT /LPF ()?? 02/14/2023 16:10 Hold Urine Culture Testing available 48 hours from time of collection. ()?? 02/14/2023 16:10 ? URINE OTHER Sodium, Urine Random <20 mmol/L ()?? 02/24/2023 16:10 Osmolality, Urine Random 365 mOsm/kg ()?? 02/24/2023 16:10 Protein, Total Urine Random 36 mg/dL ()?? 02/15/2023 09:50 TP/Cr Ratio 0.65 (High)?? 02/15/2023 09:50 Creatinine, Urine 54.7 mg/dL ()?? 02/15/2023 09:50 Malb/Creat Ratio 158.7 mg/Gm (High)?? 02/15/2023 09:50 Urine Creat For Micro Alb 54.7 mg/dL ()?? 02/15/2023 09:50 Micro-Albumin 87.0 mg/L (High)?? 02/15/2023 09:50 Est Creatinine Clearance 86.46 mL/min ()?? 03/01/2023 04:00 ? VIROLOGY COVID-19 by RT-PCR NEGATIVE ()?? 02/14/2023 13:48 ? Microbiology ?? Blood Culture #2?? Completed?? Source: Blood Body Site: ?? Collected Dt/Tm: 02/14/2023 15:10 Last Updated Dt/Tm: 02/14/2023 15:13 ?SPECIMEN DESCRIPTION : BLOOD ??NO SITESPECIAL REQUESTS : NONECULTURE : NO GROWTH 5 DAYS.REPORT STATUS : FINAL 02/19/2023 Blood Culture?? Completed?? Source: Blood Body Site: ?? Collected Dt/Tm: 02/14/2023 15:10 Last Updated Dt/Tm: 02/14/2023 15:13 ?SPECIMEN DESCRIPTION : BLOOD LACSPECIAL REQUESTS : NONECULTURE : NO GROWTH 5 DAYS.REPORT STATUS: FINAL 02/19/2023 ? 40??minutes spent on discharge * Radhika MATHEW, Jennifer: PERFORM Event Display: Patient Education/Instruction Authored Date: [id number] Inpatient Adult Discharge Instructions [address] [address] Name: ALEXANDRE GONSALVES : 1975 Visit: 02/14/2023 19:24:00 Current Date: 03/04/2023 14:12 Account: [id number] Inpatient Adult Discharge Instructions We would like to thank you for allowing us to assist you with your healthcare needs. The following includes patient education materials and information regarding your injury/illness. Our entire staffstrives to provide an excellent experience for our patients and their families. PLEASE ENSURE YOU FOLLOW-UP PER THE INSTRUCTIONS BELOW! ?? YOUR OPINION IS IMPORTANT TO US! Please complete the survey you may receive by mail or email. Your feedback will be used to make improvements to the healthcare experiences of our patients and their families. Surveys are administered by [employer]. ?? If further treatment with your primary care physician or another doctor is recommended, it is important for you to keep the appointment. Call your primary care physician or return to the Emergency Department immediately if your condition worsens, fails to improve, or new symptoms develop. If you need to find a doctor, you can call [facility] for a referral at [phone] or toll free at [phone] or log in to [email or web address].. ?? You can view and manage your care through the patient portal or by using a health care lico of your choosing. [employer] is a website that allows you to securely view your medical information including your hospital discharge summary, office visit summaries, medications and follow-up visits. You can also request appointments, renew medications, and request access to your medical information using a health care lico of your choosing, or just ask a question. You can enroll at [email or web address] or register during your next office visit. You have been discharged from [facility], Patient Care Unit: W3. If you have any questions regarding these instructions after you leave, please call us and we will be happy to assist you. [facility] Your Care Team Attending Physician Chuy CASTELLANO, Alex Santos Consulting Providers Last CASTELLANO, Edis; Paty CASTELLANO, Jose Carlos Alvarado; Laura CASTELLANO, Zeferino Pressley MD, Will; Mellisa CASTELLANO, Chandrakant Stallings Discharging Providers Chuy CASTELLANO, Alex Santos Reason for Admission per , pt fell out of bed, got back into bed. now can bend hip or knee on right side. pt deaf and mute. brusing noted to right knee Your Diagnosis Hyperkalemia, compartment syndrome Tests Performed Below is a partial list of the tests performed during your hospitalization. You may have had other tests and procedures not included in this list. Please discuss all test results with your provider. 25OH VITAMIN D ABG ABG POC CARTRIDGE ACETAMINOPHEN Alcohol Level ALT Ammonia Venous Amphetamine Urine Screen Anti-HAV IgG Anti-HBS Quant AST Barbiturate Urine Screen BASE EXCESS POC CARTRIDGE Basic Metabolic Panel Benzodiazepine Urine Screen BUN Calcium Ionized CALCIUM IONIZED POC CART Calcium Level Cannabinoid Urine Screen CBC CBC w/ Differential CK (CREATINE KINASE) CK Total Only CKMB CONFIRMATION/QUANT Cocaine Urine Screen Comprehensive Metabolic Panel COVID-19 (Novel Coronavirus), Rapid PCR CPK Total Only Creatinine Electrolytes FERRITIN GLUCOSE POC GLUCOSE POC CARTRIDGE H + H Haptoglobin HEMATOCRIT POC CARTRIDGE HEMOGLOBIN POC CARTRIDGE Hepatitis B Core Ab Hepatitis B Surface Antigen Hepatitis C Ab Hgb + Hct High??Sensitivity??Troponin T HOLD GEL TUBE HOLD GREEN TUBE HOLD LAVENDER TOP X2 HOLD LAVENDER TUBE Hold Red Top Tube INR IRON Lactic Acid Level LACTIC ACID POC CART LDH LFT's Lipase LIPID PANEL Liver Function Panel Lytes Magnesium Level Mg Level MRSA PCR Nasal Swab Opiate Screen Urine OSMOLALITY, URINE RANDOM PH CORRECTED IONIZED CALCIUM Phosphorus Level POTASSIUM POC CARTRIDGE ProBNP Protein/Creatinine Ratio Urine PT (INR) PTT RETICULOCYTE COUNT SALICYLATE Sodium Level SODIUM POC CARTRIDGE SODIUM, URINE MMOL/L Type and Screen Urinalysis w/hold for Urine Culture Urine Microalbumin VBG POC CARTRIDGE CT Abd/Pelvis W/ IV Contrast Only CT Cervical Spine W/O Contrast CT Ext Lower W/O IV Contrast Right CT Head/Brain W/O Contrast CT Lumbar Spine W/ IV Contrast CT Soft Tissue Neck W/ Contrast CXR Portable XR Chest Portable Primary Care Provider Not on Staff, PCP Advance Directive Health Care Proxy on File No Discharge Vitals Temperature: 98.8 DegF Height: 57.9 cm Pulse Rate: 89 bpm Weight: 60.9 kg Respiratory Rate: 18 br/min Body Mass Index:??172.71 kg/m2??Critical Systolic Blood Pressure: 119 mm Hg Body surface area: 0.97 Diastolic Blood Pressure: 62 mm Hg ?? Oxygen Saturation: 98 % ?? Studies Pending All tests and labs ordered during this hospital stay have been completed unless listed below. Please discuss all pending results with your provider listed above in these instructions. ?? Add On Lab Order Basic Metabolic Panel Hold Gel Top Tube (HOLD GEL TUBE) Transfuse RBCs What to do next Instructions From Your Doctor Postop Wound Instruction: -Keep the incision clean and dry. Can leave open to air, or cover with dry dressing to prevent soilage of clothes. When to call the office: -Call the office for further instructions if you develop: increased swelling, redness with warmth, purulent drainage, or fevers??>101.4 IF YOU HAVE ANY QUESTIONS OR PROBLEMS, PLEASE CALL THE SURGICAL OFFICE Discharge Orders Scheduled Follow-Up Appointments 2022 10:00 AM EDT ?? With: Liberty Plascencia MD Where: [facility] [address] [place] [address]- Status: Pending Discharge Medications ALEXANDRE BAEZA :1975 Visit Date:02/14/2023 Medications: Please continue your medications until treatment is completed or stopped by your provider. Medications not listed below should be discontinued. Discuss any questions related to medications with your provider. What How Much When Instructions Next Dose New Oxycodone (oxyCODONE 5 mg oral tablet) 0.5 tab(s) Oral Every 6 hours as needed for as needed for pain Duration: 5 Days Pickup at [facility] 3 8pm Pharmacy Information [facility] 3: [address] [place], [place] [id number] [phone] Test Results Below is a partial list of the most recent Laboratory test results done prior to this discharge. You may have had other tests and procedures not included in this list. Please discuss all test resultswith your provider. Est Creatinine Clearance - 86.46 mL/min (03/01/2023) RBC Available - PT (02/27/2023) RBC Unit ID - [id number] (02/27/2023) 25OH VITAMIN D (03/03/2023) ???25 OH-Vitamin D Level - 10.8 ng/mL ABG (02/15/2023) ???pH - 7.31???pCO2 - 34 mm Hg???pO2 - 117 mm Hg???Bicarbonate, Estimated - 17 mmol/L???Specimen Type - Blood Gas - ARTERIAL???Percent O2 (FIO2) - 60 ABG POC CARTRIDGE (02/14/2023) ???pH (POC) POC Cartridge - 7.28???pCO2 (POC) POC Cartridge - 37.3 mm Hg???pO2 (POC) POC Cartridge - 99 mm Hg???Estimated Bicarbonate (POC) POC Cart - 17.6 mmol/L???% O2 Sat Arterial (POC) POC Cartridge - 97 %???Specimen Type - Blood Gas - ARTERIAL ACETAMINOPHEN (02/14/2023) ? ?Acetaminophen Level - <5 mg/L Alcohol Level (02/14/2023) ???Ethanol, Serum or Plasma - NONE DETECTED ALT (02/23/2023) ???ALT (SGPT) - 140 units/L Ammonia Venous (02/14/2023) ???Ammonia, Venous - 39 ??mole/L Amphetamine Urine Screen (02/14/2023) ???Amphetamine Screen, Urine - NONE DETECTED Anti-HAV IgG (02/14/2023) ???Anti-HAV IgG - POSITIVE Anti-HBS Quant (02/14/2023) ???Anti-HBS Quant - 1.12 mIU/mL AST (02/23/2023) ???AST (SGOT) - 134 units/L Barbiturate Urine Screen (02/14/2023) ???Barbiturate Screen, Urine - NONE DETECTED BASE EXCESS POC CARTRIDGE (02/14/2023) ???Base Excess (POC) POC Cartridge - NEGATIVE 9 Basic Metabolic Panel (03/03/2023) ???Sodium - 134 mmol/L???Potassium - 4.8 mmol/L???Chloride - 100 mmol/L???Bicarbonate Level - 26 mmol/L???Anion Gap - 8???Glucose Level - 83 mg/dL???BUN - 16 mg/dL???Creatinine-Blood - 0.9 mg/dL???Estimated GFR Creatinine - 106 ML/MIN/1.73 M2???Calcium - 5.7 mg/dL Benzodiazepine Urine Screen (02/14/2023) ???Benzodiazepine Screen, Urine - NONE DETECTED BUN (03/04/2023) ???BUN - 15 mg/dL Calcium Ionized (03/03/2023) ???Calcium, Ionized pH Corrected - 0.86 mmol/L CALCIUM IONIZED POC CART (02/14/2023) ???Ionized Calcium (POC) POC Cartridge - 0.95 mmol/L Calcium Level (03/04/2023) ???Calcium - 6.2 mg/dL Cannabinoid Urine Screen (02/14/2023) ???Cannabinoid Screen, Urine - NONE DETECTED CBC (03/04/2023) ???WBC - 3.3 k/mm3???RBC - 2.80 m/mm3???Hgb - 8.1 Gm/dL???Hct - 24.9 %???MCV - 88.9 femtoliters???MCH - 28.9 pg???MCHC - 32.5 g/dL???Platelet Count - 237 k/mm3???RDW-SD - 46.1 femtoliters???MPV - 9.2femtoliters???Nucleated RBC (Automated) - 0.0 #/100 WBC'S???Abs. NRBC - 0.0 k/mm3 CBC w/ Differential (02/21/2023) ???WBC - 6.3 k/mm3???RBC - 3.40 m/mm3???Hgb - 9.4 Gm/dL???Hct - 28.0 %???MCV - 82.4 femtoliters???MCH - 27.6 pg???MCHC - 33.6 g/dL???Platelet Count - 189 k/mm3???RDW-SD - 37.5 femtoliters???MPV - 10.1 femtoliters???Nucleated RBC (Automated) - 0.0 #/100 WBC'S???Abs. NRBC - 0.0 k/mm3???Abs. Neut - 5.3 k/mm3???Abs. Lymph - 0.4 k/mm3???Abs. [place] - 0.4 k/mm3???Abs. Eo - 0.1 k/mm3???Abs. Baso - 0.0 k/mm3???Neut % - 81.0 %???Lymph % - 6.0 %???[place] % - 7.0 %???Eos % - 1.0 %???Baso % - 0.0 %???Myelocytes % - 1.0 %???Band % - 4.0 %???Platelet Estimate - ADEQUATE CK (CREATINE KINASE) (02/15/2023) ???CK, Total - 93729 units/L CK Total Only (02/17/2023) ???CK, Total - 37211 units/L CKMB CONFIRMATION/QUANT (02/15/2023) ???CK MB Confirmation - Quant - 403.0 ng/mL Cocaine Urine Screen (02/14/2023) ???Cocaine Metabolite Screen, Urine - POSITIVE Comprehensive Metabolic Panel (02/19/2023) ???Sodium - 130 mmol/L???Potassium - 4.6 mmol/L???Chloride - 94 mmol/L???Bicarbonate Level - 22 mmol/L???Anion Gap - 14???Glucose Level - 121 mg/dL???BUN - 90 mg/dL???Creatinine-Blood - 6.4 mg/dL???Estimated GFR Creatinine - 10 ML/MIN/1.73 M2???Calcium - 6.7 mg/dL???Protein, Total - 5.5 Gm/dL???Albumin - 2.6 Gm/dL???AG Ratio - 0.9???Alkaline Phosphatase - 81 units/L???AST (SGOT) - 370 units/L???ALT (SGPT) - 317 units/L???Bilirubin, Total - 0.6 mg/dL COVID-19 (Novel Coronavirus), Rapid PCR (02/14/2023) ???COVID-19 by RT-PCR - NEGATIVE CPK Total Only (02/18/2023) ???CK, Total - 7136 units/L Creatinine (03/04/2023) ???Creatinine-Blood - 0.9 mg/dL???Estimated GFR Creatinine - 107 ML/MIN/1.73 M2 Electrolytes (02/23/2023) ???Sodium - 126 mmol/L???Potassium - 4.7 mmol/L???Chloride - 93 mmol/L???Bicarbonate Level - 23 mmol/L???Anion Gap - 10 FERRITIN (02/25/2023) ???Ferritin Level - 535 ng/mL GLUCOSE POC (02/21/2023) ???Glucose, POC - 142 mg/dL GLUCOSE POC CARTRIDGE (02/14/2023) ???Glucose (POC) POC Cartridge - 113 H + H (02/25/2023) ???Hgb - 7.3 Gm/dL???Hct - 21.5 % Haptoglobin (02/25/2023) ???Haptoglobin - 61 mg/dL HEMATOCRIT POC CARTRIDGE (02/14/2023) ???Hematocrit (POC) POC Cartridge - 36 % HEMOGLOBIN POC CARTRIDGE (02/14/2023) ???Hemoglobin (POC) POC Cartridge - 12.2 Gm/dL Hepatitis B Core Ab (02/14/2023) ???Hepatitis B Core Ab, Total - POSITIVE Hepatitis B Surface Antigen (02/14/2023) ???Hepatitis B Surface Antigen - NEGATIVE Hepatitis C Ab (02/14/2023) ???Hepatitis C Ab - Reactive by screening EIA. Hgb + Hct (02/23/2023) ???Hgb - 6.7 Gm/dL???Hct - 19.4 % High??Sensitivity??Troponin T (02/14/2023) ???High Sensitivity Troponin (HSTnT) - 83 ng/L HOLD GEL TUBE (02/23/2023) ???Hold Gel Top - SPECIMEN DISCARDED AFTER 1 WEEK HOLD GREEN TUBE (02/14/2023) ???Hold Green Top - SPECIMEN DISCARDED AFTER 1 WEEK HOLD LAVENDER TOP X2 (02/14/2023) ???Hold Lavender Top - SPECIMEN DISCARDED AFTER 24 HOURS.???Hold Lavender Top 2 - SPECIMEN DISCARDED AFTER 24 HOURS. HOLD LAVENDER TUBE (02/28/2023) ???Hold Lavender Top - SPECIMEN DISCARDED AFTER 24 HOURS. Hold Red Top Tube (02/14/2023) ???Hold Red Top - SPECIMEN DISCARDED AFTER 1 WEEK INR (02/27/2023) ???INR - 1.0???Protime (PT) - 10.7 seconds IRON (02/25/2023) ???Iron Level - 28 mcg/dL Lactic Acid Level (02/14/2023) ???Lactate - 0.9 mmol/L LACTIC ACID POC CART (02/14/2023) ???Lactate, (POC) POC Cartridge - 0.7 mmol/L LDH (02/27/2023) ???LDH - 484 units/L LFT's (03/02/2023) ???Protein, Total - 5.5 Gm/dL???Albumin - 2.8 Gm/dL???Alkaline Phosphatase - 70 units/L???AST (SGOT) - 67 units/L? ?ALT (SGPT) - 55 units/L? ?Bilirubin, Total - 0.3 mg/dL? ?Bilirubin, Direct - <0.2 mg/dL???Bilirubin, Indirect - Direct bilirubin is less than the measureable limit. Therefore, indirect Lipase (02/14/2023) ???Lipase - 51 units/L LIPID PANEL (02/14/2023) ???Cholesterol - 138 mg/dL???Triglycerides - 239 mg/dL???HDL Cholesterol - 32 mg/dL???LDL Cholesterol - 58 mg/dL???Non HDL Cholesterol - 106 mg/dL Liver Function Panel (02/18/2023) ???Protein, Total - 5.6 Gm/dL???Albumin - 2.6 Gm/dL???Alkaline Phosphatase - 82 units/L???AST (SGOT) - 369 units/L???ALT (SGPT) - 364 units/L???Bilirubin, Total - 0.5 mg/dL???Bilirubin, Direct - 0.4 mg/dL???Bilirubin, Indirect - 0.1 mg/dL Lytes (03/04/2023) ???Sodium - 135 mmol/L???Potassium - 4.7 mmol/L???Chloride - 102 mmol/L???Bicarbonate Level - 26 mmol/L???Anion Gap - 7 Magnesium Level (03/04/2023) ???Magnesium - 1.5 mg/dL Mg Level (02/18/2023) ???Magnesium - 2.4 mg/dL MRSA PCR Nasal Swab (02/15/2023) ???MRSA PCR Result - Negative, MRSA target DNA not detected.???S Aureus PCR Result - Positive, SA target DNA detected. Opiate Screen Urine (02/14/2023) ???Opiate Screen, Urine - NONE DETECTED OSMOLALITY, URINE RANDOM (02/24/2023) ???Osmolality, Urine Random - 365 mOsm/kg PH CORRECTED IONIZED CALCIUM (02/15/2023) ???Calcium, Ionized pH Corrected - 0.95 mmol/L Phosphorus Level (02/18/2023) ???Phosphorus - 6.3 mg/dL POTASSIUM POC CARTRIDGE (02/14/2023) ???Potassium (POC) POC Cartridge - 6.3 mmol/L ProBNP (02/14/2023) ???Nt-Probnp - 4559 pg/mL Protein/Creatinine Ratio Urine (02/15/2023) ???Protein, Total Urine Random - 36 mg/dL???TP/Cr Ratio - 0.65???Creatinine, Urine - 54.7 mg/dL PT (INR) (02/14/2023) ???INR - 1.1???Protime (PT) - 11.7 seconds PTT (02/14/2023) ???APTT - 31.2 seconds RETICULOCYTE COUNT (02/25/2023) ???Retic Count - 3.3 %???Retic Count Corrected - 1.4 %???Retic Production Index - 0.7 % SALICYLATE (02/14/2023) ? ?Salicylate Level - <0.3 mg/dL Sodium Level (02/28/2023) ???Sodium - 130 mmol/L SODIUM POC CARTRIDGE (02/14/2023) ???Sodium (POC) POC Cartridge - 127 mmol/L SODIUM, URINE MMOL/L (02/24/2023) ? ?Sodium, Urine Random - <20 mmol/L Type and Screen (02/27/2023) ???Blood Type - B Positive???Antibody Screen - Negative Urinalysis w/hold for Urine Culture (02/14/2023) ???Appear/Color, Urine - YELLOW???Specific [place], Urine - 1.018???pH, Urine - 5.5???Albumin, Urine - 2+???Glucose, Urine - TRACE???Ketones, Urine - NEGATIVE???Bilirubin, Urine - NEGATIVE???Hemoglobin, Urine - 3+???Nitrite, Urine - NEGATIVE???Leukocyte, Urine - TRACE???Urobilinogen - NORMAL???WBC's, Urine - 1 /HPF???RBC's, Urine - 18 /HPF???Squamous Epith - 1 /HPF???Amorphous Crystals - SLIGHT???Mucus - SLIGHT???Hold Urine Culture - Testing available 48 hours from time of collection. Urine Microalbumin (02/15/2023) ???Malb/Creat Ratio - 158.7 mg/Gm???Urine Creat For Micro Alb - 54.7 mg/dL???Micro-Albumin - 87.0 mg/L VBG POC CARTRIDGE (02/14/2023) ???pH Venous (POC) POC Cartridge - 7.34???pCO2 Venous (POC) POC Cartridge - 33.8 mm Hg???pO2 Venous(POC) POC Cartridge - 73 mm Hg???Est Bicarbonate (POC) POC Cartridge - 18.4 mmol/L???% O2 Sat Venous (POC) POC Cartridge - 94???Specimen Type - Blood Gas - VENOUS Allergies (NKA means No Known Allergies) NKA Problems Active Problems??(1) Severe obesity?? Education Materials Below is the list of Educational Leaflet Providered with your Discharge Instructions. Valuables and Belongings I fully understand and agree that [facility] accepts no responsibility for all my personal property including clothing, toilet articles, radios, jewelry, dentures, hearing aids, rings, money, or any other property that is in my possession or is brought to me after admission. I understand certain valuables may be placed in a hospital safe for a short period of time. I understand that the hospital is not liable for loss or damage due to accident, fire, or other natural occurrence while said property is in the safe. I accept full responsibility for any personal property that I keep with me, and will not hold the hospital responsible in case of loss or disappearance. I acknowledge that i have been encouraged to send valuables and belongings home. ?? No Valuables/Belongings: No valuables/belongings present Review of Valuable and Belonging List: With patient Disposition of Belongings: Other: pacu locker Possessions released to: no belongings in preop area Date for Pt to Sign Valuables/Belongings: 03/01/23 09:52:00 ?? Valuables & Belongings ?? Clothes Electronic devices Jewelry Monetary Items Personal devices Miscellaneous Medications (Valuables) Valuables at Bedside ? Rings ? Valuables Sent Home ? Valuables Sent to Security ? Other Discharge Information ?? Wound Assessment?? Wound Assessment?? Wound Location I: Leg, right upper Wound Type I: Traumatic Wound Wound I, Present on Admission: Yes Wound Vac Location: Right buttock and right lateral thigh Dressing Intact Wound: Yes Suction Setting Wound: 125 mm Hg Dressing Change Wound: Physician Frequency of Dressing Change Wound: Every 72 Hours ? Pulmonary Rehab Status?? Pulmonary Rehab Discharge Status?? Respiratory Rate: 18 br/min PEEP: 5 ? Common Emergency Awareness Tips IS IT A STROKE? Act FAST and Check for these signs: FACE Does the face look uneven? ARM Does one arm drift down? SPEECH Does their speech sound strange? TIME Call at any sign of stroke ?? Heart Attack Signs Chest discomfort: Most heart attacks involve discomfort in the center of the chest and lasts more than a few minutes, or goes away and comes back. It can feel like uncomfortable pressure, squeezing, fullness or pain. Discomfort in upper body: Symptoms can include pain or discomfort in one or both arms, back, neck, jaw or stomach. Shortness of breath: With or without discomfort. Other signs: Breaking out in a cold sweat, nausea, or lightheaded. Remember, MINUTES DO MATTER. If you experience any of these heart attack warning signs, call to get immediate medical attention! ?? Smoking can increase your chances of developing chronic health problems and can cause harmful effects to other family members in your house. If you smoke, you are strongly encouraged to quit. Please call [facility] Link at [phone] or [phone]) or log in to [email or web address] for referrals to smoking cessation programs. ?? 581 Suicide & Crisis Lifeline is available 12/04 if you or someone you know needs to find a reason to keep living. By calling 988 you'll be connected to a skilled, trained counselor at a crisis center in your area. INPATIENT DISCHARGE INSTRUCTIONS SIGNATURE PAGE ALEXANDRE BAEZA Location:[facility] Registration Date and Time:02/14/2023 19:24 EDT Primary Care Physician: Not on Staff, PCP Attending Physician: Chuy CASTELLANO, Alex Santos, I ALEXANDRE BAEZA, have received the above patient education materials/instructions and haveverbalized understanding. If ambulance or transport services are being used I further acknowledge being given a choice of service. ?? If you need to contact me, please call me at this number: . 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 [id number] ??Qu?? es el s??ndrome compartimental? Un compartimento es un isidro de m??sculos, vasos sangu??neos y nervios. Taty isidro est?? rodeado por un tejido sirena llamado fascia. Velasquez lesi??n u otro problema pueden hacer que el tejido dentro de taty compartimento se inflame. Puede acumularse norm u otro l??quido. Cualquiera de estos causa demasiada presi??n dentro del compartimento. Esta presi??n puede da??ar r??pidamente los m??sculos y otros tejidos. Esta afecci??n es velasquez emergencia que deber??a tratarse de inmediato. El s??ndrome compartimental afecta con m??s frecuencia las piernas, los brazos, los pies, las manosy los gl??teos. Causas del s??ndrome compartimental La causa m??s com??n es velasquez lesi??n. Suele tratarse de velasquez lesi??n importante, berenice velasquez fractura ??sea, velasquez lesi??n por aplastamiento o velasquez quemadura grave. Elyssa algunas lesiones menores tambi??n pueden causarlo. Un vendaje, velasquez f??vivi o un yeso que quedan demasiado ajustados tambi??n pueden causar taty problema. En algunos casos raros, las causas incluyen la mordida de un animal, trastornos de sangrado o inyectarse drogas il??citas. ?? S??ntomas del s??ndrome compartimental Entre ellos, se incluyen los siguientes: ??? Dolor que va en aumento r??pidamente ??? Dolor m??s sirena del que se espera para el tipo de lesi??n ??? Ardor o dolor que se siente en lo profundo del m??sculo ??? P??rdida de sensibilidad, o entumecimiento ?? Tratamiento del s??ndrome compartimental El s??ndrome compartimental debe tratarse loving pronto berenice sea posible. El tratamiento puede incluirlo siguiente: ??? Quitar el yeso, la f??vivi o el vendaje. Encampment puede reducir la presi??n. ??? Mantener el brazo o la pierna afectados a la altura del coraz??n. Encampment ayuda a reducir la presi??n. ??? Nilay medicamentos recetados o de venta montez. Pueden aliviar el dolor y la hinchaz??n. ??? Recibir m??s ox??yen. Puede ayudar a limitar el da??o en los tejidos. ??? Controlar la presi??n arterial. Encampment aury la presi??n arterial baja y permite que la magan tenga velasquez circulaci??n adecuada. ??? Haceruna cirug??a para abrir la fascia. Ayuda a aliviar la presi??n y a evitar m??s da??os en los tejidos. ?? Complicaciones posibles Si un s??ndrome compartimental no se trata de inmediato, los m??sculos y los nervios pueden morir. Los m??sculos muertos no pueden repararse y deben extraerse. En algunos casos, puede ser necesaria velasquez cirug??a para quitar la parte del cuerpo afectada (amputaci??n). ?? Cu??ndo llamar al proveedor de atenci??n m??dica Llame de inmediato a hughes proveedor de atenci??n m??dica si presenta cualquiera de estos s??ntomas: ??? Dolor grave o dolor que empeora r??pidamente. Encampment puede pasar horas despu??s de la lesi??n. ??? Dolor que no se taco con medicamentos ??? Entumecimiento u hormigueo ??? Debilidad ??? Problemas para wallpaper remover steam los m??sculos afectados ??? S??ntomas nuevos ?? Last Reviewed Date: 2022 ?? [employer]. All rights reserved. This information is not intended as a substitute for professional medical care. Always follow your healthcare professional's instructions. ?? * Radhika MATHEW, Jennifer: PERFORM Event Display: Patient Education Leaflets Authored Date: [id number] Oxycodone Oral Tablet 5 mg ?? [id number] Oxycodone Oral Tablet 5 mg Usos Para el dolor. ?? Instrucciones Las tabletas de algunas marcas de taty medicamento deben tragarse enteras, mientras que las de otras marcas pueden triturarse. Preg??ntele a hughes farmac??utico c??mo debe nilay taty medicamento. Taty medicamento se puede nilay con o sin alimentos. Tragar con un vaso de agua lleno (8 onzas), a menos que hughes m??dico le d?? otras instrucciones. Guarde a temperatura ambiente, alejado del calor, la chetna y la humedad. No lo guarde en el ba??o. Pregunte a hughes m??dico, enfermero o farmac??utico c??mo desechar de forma stock los medicamentos sin usar. Para reducir el estre??imiento, consuma alimentos con alto contenido de fibra, rhea milagro agua y shimon ejercicio. Evite nilay jugo de pomelo o toronja mientras est?? usando taty medicamento. Las interacciones con otros medicamentos pueden cambiar la forma en que act??an los medicamentos o aumentar el riesgo de presentar efectos secundarios. Informe a amando profesionales sanitarios acerca de todos los medicamentos que usa. Encampment incluye medicamentos con y sin receta m??dica, vitaminas y medicamentos a base de hierbas. Hable con hughes m??dico o farmac??utico antes de empezar o dejar de usar cualquier medicamento. Informe a hughes m??dico si amando s??ntomas no mejoran o si empeoran. Es posible que salgan trozos de taty medicamento en las heces. Encampment es normal. ?? Precauciones Taty medicamento contiene un opioide. Aunque los opioides ayudan a muchas personas, pueden causar adicci??n, en especial si se usan vani pavel tiempo. El riesgo de adicci??n es mayor si usted padece un trastorno de uso de sustancias (uso excesivo de drogas o alcohol, o adicci??n a estas sustancias). Preg??ntele a hughes m??dico acerca de los beneficios y los riesgos. Pregunte a hughes m??dico o a hughes farmac??utico si usted debe tener naloxona disponible para tratar velasquez sobredosis por opioides. Ens?indira a amando familiares o a las personas que viven con usted a identificar los signos de velasquez sobredosis por opioides y c??mo tratarla. Si severiano de usar taty medicamento repentinamente despu??s de haberlo usado vani pavel tiempo, es posible que tenga s??ntomas de abstinencia. Hughes m??dico podr??a reducir hughes dosis lentamente antes de que deje de usarlo. Informe a hughes m??dico de inmediato si tiene s??ntomas, por ejemplo, sudoraci??n inusual, ojos llorosos, goteo nasal, escalofr??os, diarrea, bostezos, sarah musculares, inquietud, ansiedad, problemas para dormir o pensamientos suicidas. Informe a hughes m??dico y a hughes farmac??utico si alguna vez moore tenido velasquez reacci??n al??rgica a un medicamento. No use el medicamento m??s veces de lo indicado. Taty medicamento puede causar mareos o desmayo, sobre todo despu??s de hacer ejercicio o en clima c??lido. Tenga cuidado cuando se pare o se siente con rapidez. Si es posible, evite el uso con alcohol, marihuana u otros medicamentos que puedan causar mareos o somnolencia. Entre estos se incluyen productos para tratar alergias o resfriados, relajantes musculares, medicamentos para ayudar a dormir y medicamentos para aliviar el dolor. Taty medicamento puede afectar hughes capacidad de mantenerse alerta o de reaccionar con rapidez. No maneje ni opere m??quinas hasta que sepa qu?? efecto le provocar?? taty medicamento. Taty medicamento pasa a la leche materna. Consulte a hughes m??dico antes de amamantar. Taty medicamento puede causar da??os a un beb?? en el ??tero. Si queda embarazada mientras usa estemedicamento, av??jairo a hughes m??dico de inmediato. El m??dico puede cambiar el medicamento por otro diferente. Los pacientes con dificultades de respiraci??n deben usar taty medicamento con precauci??n. Llame a hughes m??dico inmediatamente si observa que la respiraci??n es lenta o superficial. No comparta taty medicamento con otras personas a quienes no se les recet??. Algunos pacientes presentan efectos secundarios graves con taty medicamento. P??jenniffer a hughes farmac??utico que le muestre la informaci??n de la Administraci??n de Alimentos y Medicamentos (FDA) y que laanalice con usted. ?? Efectos Secundarios La siguiente es velasquez lista de algunos efectos secundarios comunes de taty medicamento. Hable con el m??dico para saber qu?? debe hacer en edouard de tener estos u otros efectos secundarios. ??? p??rdida de apetito ??? estre??imiento ??? mareos o aturdimiento ??? mareo ??? n??useas y v??mitos Llame al m??dico u obtenga atenci??n m??dica de inmediato si nota cualquiera de estos efectos secundarios m??s graves: ??? sensaci??n de agitaci??n o dificultad para dormir ??? reducci??n del nivel de conciencia o de las reacciones ??? interrupci??n de la respiraci??n vani el robbi??o ??? respiraci??n r??pida e irregular ??? confusi??n ??? desmayo ??? alucinaciones (pensamientos extra??os, onesimo u o??r cosas que no son reales) ??? convulsiones ??? dolor intenso del est??berta o las v??as digestivas ??? cansancio o debilidad, extra??o o sin causa aparente ??? dificultad o molestia al orinar ??? p??rdida de peso Algunas personas podr??an tener reacciones al??rgicas a taty medicamento. Entre los s??ntomas pueden incluirse: dificultad para respirar, erupci??n en la piel, comez??n, hinchaz??n o mareos intensos.Si nota algunos de estos s??ntomas, busque asistencia m??dica r??pidamente. ?? Extra Hable con hughes m??dico, enfermero o farmac??utico si tiene alguna pregunta acerca de taty medicamento. ?? [email or web address] NOTA IMPORTANTE: En taty documento hay velasquez explicaci??n breve sobre c??mo usar el medicamento, perono incluye todo lo que hay que saber acerca del medicamento. Hughes m??dico o hughes farmac??utico podr??a suministrarle otros documentos acerca de hughes medicamento. Comun??quese con ellos si tiene alguna pregunta. Siga siempre amando consejos. Velasquez descripci??n m??s completa de taty medicamento est?? disponibleen ingl??s. Escanee taty c??digo en hughes tel??fono inteligente o en hughes tableta, o use la direcci??n web que aparece a continuaci??n. Tambi??n puede pedirle a hughes farmac??utico velasquez copia impresa. Si tiene alguna pregunta, h??gasela a hughes farmac??utico. La exhibici??n y el uso de esta informaci??n sobre f??rmacos est?? sujeta a los T[employer]inos [employer]. Copyright(c) 2022 [employer]. ?? The [employer]. All rights reserved. This information is not intended as a substitute for professional medical care. Always follow your healthcare professional's instructions. ?? * Julian Calvillo MD: PERFORM Event Display: Procedures Invasive Line Authored Date: [id number] Vascular Access Insertion Entered On: 02/15/2023 3:37 EDT Performed On: 02/14/2023 23:35 EDT by Julian Calvillo MD Vascular Access Insertion Date of Vascular Access Insertion : 02/14/2023 EDT Procedure Location Vascular Access : MICU Person recording insertion : Neurology Technologist Neurology Technologist of Vascular Access : Julian Calvillo MD Occupation of Vascular Access Neurology Technologist : Fellow Person Supervising Procedure : Clint Dozier MD, MD, Julian - 02/15/2023 3:35 EDT Julian Calvillo MD - 02/15/2023 3:35 EDT Procedural Comments Risk Factors and Labs Reviewed : Yes Clint Dozier MD - 02/15/2023 7:46 EDT Anticoagulation Therapy : No Antiplatelet Therapy : No Vascular Access Type : Central line Time Out Performed : Yes Time Out Data : Patient identified, Site verified, Procedure verified, RN attendance Reason for Vascular Access Insertion : Hemodialysis Vascular Access Procedure Check : Critical care patient, Emergency consent Hand Hygiene prior to insertion : Yes Maximal sterile barriers used : Mask, Sterile gown, Large sterile full body drape, Sterile gloves, Ultrasound sterile cover, Cap Sterile Field Maintained : Yes Skin Preparation : Chlorhexidine (CHG) Skin Prep dry at first skin puncture : Yes Antimicrobial coated catheter used : Yes Successful central line placement : Yes Vascular Access Catheter Type : Non-tunneled (other than dialysis) Vascular Access Insertion Site : Femoral Vascular Access Insertion Side : Left Vascular Access Catheter Length : 20 Vessel Identified By : Ultrasound Vascular Access Insertion Circumstance : Emergent (life-threatening or code situation) Vascular Access Catheter Securement : Suture Vascular Access Dressing : Occlusive Julian Calvillo MD - 02/15/2023 3:35 EDT DCP GENERIC CODE Suture needles : 1 [place] : 4 Scalpels : 1 Clamps : 1 Guide Wires : 1 Julian Calvillo MD 02/15/2023 3:35 EDT Complications during Insertion : None Tolerated CLIP procedure well : Yes Insertion Attempts : 1 Julian Calvillo MD - 02/15/2023 3:35 EDT Attending Attestation Statement of Attestation : Patient seen Attending Attestation Patient Seen : I was present during the critical and jones portions of the procedure Clint Dozier MD - 02/15/2023 7:46 EDT History and physical note * Nicolas Dennis MD: VERIFY Nicolas Dennis MD: VERIFY, PERFORM Nicolas Dennis MD: PERFORM, MODIFY Nicolas Dennis MD: MODIFY, SIGN Nicolas Dennis MD: SIGN, MODIFY Event Display: History and Physical Hospital Authored Date: Patient: ALEXANDRE BAEZA Age: 48 years Sex: Male : 1975 Associated Diagnoses: None Author: Nicolas Dennis MD Trauma History 48 yoM trauma consult s/p fall with long lay on the ground yesterday morning. 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 Per the ED this patient presents to the emergency department following afall with a long lie yesterday. He reportedly woke up this morning after taking cocaine last night and was able to get himself off the ground. He is deaf and mute and has had altered mental status since arriving in the emergency department. He was found to be hyperkalemic to 7.[address] scan of the chest abdomen pelvis was obtained which revealed possible myositis in the right gluteal area and given the laboratory abnormalities a trauma consult was obtained for right gluteal compartment syndrome. Patient was deaf and mute and interacts using Slovenian sign language. A marked senior design engineering specialist was present for consultation and consent signing. Past Medical History Polysubstance abuse Prior TBI Past Surgical History No reported surgical history Medications No daily medications Allergies No known allergies Family History No family history of bleeding or clotting disorders Social History Uses cocaine Smokes cigarettes and marijuana. Denies ETOH abuse. Review of Systems A 14-point review of systems was negative except as documented above Past Medical History Allergies Allergic Reactions (Selected) NKA Physical Examination Vital Signs: Temperature 97.8 (12:20) Systolic Blood Pressure 100 (18:50) Diastolic Blood Pressure 89 (18:50) Pulse 79 (18:50) SpO2 98 (18:50) Respiratory Rate 20 (18:50) General: no acute distress, alert, awake, sleepy but arousable. Head: normocephalic, atraumatic, no hematomas, no abrasions, no wounds, no deformities Face: no ecchymosis, no abrasions, no wounds Eyes: pupils are 3mm, equal, round, and reactive; extraocular movement intact Ears: no hemotympanum, no blood in external auditory canal, no abrasions, no proctor's sign Nose: no epistaxis, no deformity Mandible: no deformity, no malocclusion, right jaw superficial abrasion. Neck: cervical-collar in place, no hematoma, no ecchymosis, no wounds, trachea midline Chest: symmetric, no deformity, sternum, chest wall, and clavicles are nontender to palpation, no crepitus appreciated Heart: regular rate and rhythm Lungs: clear to auscultation bilaterally Abdomen: soft, nondistended, nontender, no wounds, no ecchymosis, no hematoma, well healed right lower abdominal surgical incision. Pelvis: stable, nontender Back: no ecchymosis, no abrasions, no hematoma, no wounds Buttocks: right gluteal area is firm and not compressible. Cervical spine: no midline deformities or stepoffs, no tenderness, cervical- collar in place Thoracic spine: no midline deformities or stepoffs, no tenderness Lumbar spine: no midline deformities or stepoffs, no tenderness Extremities: no long bone deformities, no wounds, no abrasions, no ecchymosis, no hematomas, full active range of motion, right thigh is also firm but somewhat compressible. Neurologic: GCS11 (max mute) ; 5/5 strength and sensation to light touch intact in the bilateral upper and lower extremities Vascular: palpable dorsalis pedis and radial pulses bilaterally Vital Signs Results Review 7 day results Labs & Documents Imaging : RADIOLOGY 02/14/2023 16:50 EDT Chest Portable Chest Portable 02/14/2023 15:[address] Head/Brain W/O Contrast CT Head/Brain W/O Contrast CT Cervical Spine W/O Contrast RESULT: CT Cervical Spine W/O Contrast CT Lumbar Spine W/ Contrast CT Lumbar Spine W/ Contrast CT Abd/Pelvis W/ IV Contrast Only RESULT: CT Abd/Pelvis W/ IV Contrast Only Chest Portable Event Date: 02/14/2023 16:50:26 EDT Updated: 02/14/2023 17:01 EDT XR Chest Portable This document has an image Reason For Exam Shortness of Breath RESULT: Chest Portable Chest Portable Hx of Present Illness: fall; Reason: Shortness of Breath; Clinical Question(s): Pneumonia COMPARISON: None. FINDINGS: LINES AND TUBES: Monitoring leads project over the chest. LUNGS AND PLEURA: Clear lungs. Normal pulmonary vascularity. No pleural effusion. No pneumothorax. HEART, MEDIASTINUM AND PIERO: Heart is normal in size. Normal mediastinal and hilar contour. BONES AND SOFT TISSUES: No acute abnormality. IMPRESSION: No acute abnormality. WSN: [id number] Ordering Physician: Irineo Jacobs Signature Line Dictated By: Amilcar Allen MD Dictated Date/Time: 02/14/23 4:58 pm Reviewed By: Amilcar Allen MD Signed By: Amilcar Allen MD Signed Date/Time: 02/14/23 4:58 pm Transcribed By: ALVIN Transcribed Date/Time: 02/14/23 4:[address] Head/Brain W/O Contrast Event Date: 02/14/2023 15:23:13 EDT Updated: 02/14/2023 16:[address] Head/Brain W/O Contrast This document has an image Reason For Exam Trauma RESULT: CT Head/Brain W/O Contrast CT Head/Brain W/O Contrast, CT Cervical Spine W/O Contrast INDICATION: fall; Reason: Trauma; Clinical Question(s): Hematoma TECHNIQUE: Noncontrast head CT using axial technique was reconstructed in axial and coronal planes.Noncontrast spiral CT through the cervical spine was formatted in 3 planes. Automatic tube modulation was used for the cervical spine and iterative dose reconstruction was used for both the head and cervical spine to optimize scan parameters and image quality. CTDIvol Body: 12.27 mGy, DLP Body: 329 mGy*cm. CTDIvol Head: 48.28 mGy, DLP Head: 917 mGy*cm. COMPARISON: None. FINDINGS: Broadband Engineer View Findings, Lines and Tubes: None. BRAIN AND EXTRA-AXIAL SPACES: No parenchymal hemorrhage, midline shift, or mass effect. Harry-white matter differentiation is wellpreserved. No acute infarct. Negative insular ribbon and hyperdense vessel signs. Bifrontal encephalomalacia at the vertex. Right frontal encephalomalacia anteriorly. Ventricles, sulci, and basilar cisterns are normal. No white matter lesions. No subarachnoid hemorrhage. No subdural or epidural collection. CALVARIUM, SKULL BASE, AND SOFT TISSUES: No fractures or suspicious bony lesions. Minimal mucosal thickening of the right maxillary sinus. The remainder of the paranasal sinuses andmastoid air cells are clear. Visualized orbits and globes are intact. The extracranial soft tissues are unremarkable. CERVICAL SPINE: No fracture. No acute osseous abnormalities. Normal alignment. No locked or perched facet. Mild multilevel degenerative disc space narrowing andend plate irregularity. OTHER BONES: No acute abnormality. CERVICAL SOFT TISSUES AND LUNG APICES: Normal soft tissues. Visualized lung apices are clear. IMPRESSION: No acute abnormality of the head or cervical spine. Bifrontal encephalomalacia compatible with remote insult. I have personally reviewed the images and I agree with this report. WSN: [id number] Ordering Physician: Irineo Jacobs Signature Line Dictated By: Abimbola Moscoso MD Dictated Date/Time: 02/14/23 4:03 pm Reviewed By: Cory Kumar MD Signed By: Cory Kumar MD Signed Date/Time: 02/14/23 4:08 pm Transcribed By: ALVIN Transcribed Date/Time: 02/14/23 3:[address] Head/Brain W/O Contrast CT Cervical Spine W/O Contrast Event Date: 02/14/2023 15:23:13 EDT Updated: 02/14/2023 16:[address] Cervical Spine W/O Contrast This document has an image Reason For Exam Neck trauma, dangerous injury mechanism;Other: RESULT: CT Cervical Spine W/O Contrast CT Head/Brain W/O Contrast, CT Cervical Spine W/O Contrast INDICATION: fall; Reason: Trauma; Clinical Question(s): Hematoma TECHNIQUE: Noncontrast head CT using axial technique was reconstructed in axial and coronal planes.Noncontrast spiral CT through the cervical spine was formatted in 3 planes. Automatic tube modulation was used for the cervical spine and iterative dose reconstruction was used for both the head and cervical spine to optimize scan parameters and image quality. CTDIvol Body: 12.27 mGy, DLP Body: 329 mGy*cm. CTDIvol Head: 48.28 mGy, DLP Head: 917 mGy*cm. COMPARISON: None. FINDINGS: Broadband Engineer View Findings, Lines and Tubes: None. BRAIN AND EXTRA-AXIAL SPACES: No parenchymal hemorrhage, midline shift, or mass effect. Harry-white matter differentiation is wellpreserved. No acute infarct. Negative insular ribbon and hyperdense vessel signs. Bifrontal encephalomalacia at the vertex. Right frontal encephalomalacia anteriorly. Ventricles, sulci, and basilar cisterns are normal. No white matter lesions. No subarachnoid hemorrhage. No subdural or epidural collection. CALVARIUM, SKULL BASE, AND SOFT TISSUES: No fractures or suspicious bony lesions. Minimal mucosal thickening of the right maxillary sinus. The remainder of the paranasal sinuses andmastoid air cells are clear. Visualized orbits and globes are intact. The extracranial soft tissues are unremarkable. CERVICAL SPINE: No fracture. No acute osseous abnormalities. Normal alignment. No locked or perched facet. Mild multilevel degenerative disc space narrowing andend plate irregularity. OTHER BONES: No acute abnormality. CERVICAL SOFT TISSUES AND LUNG APICES: Normal soft tissues. Visualized lung apices are clear. IMPRESSION: No acute abnormality of the head or cervical spine. Bifrontal encephalomalacia compatible with remote insult. I have personally reviewed the images and I agree with this report. WSN: [id number] Ordering Physician: Irineo Jacobs Signature Line Dictated By: Abimbola Moscoso MD Dictated Date/Time: 02/14/23 4:03 pm Reviewed By: Cory Kumar MD Signed By: Cory Kumar MD Signed Date/Time: 02/14/23 4:08 pm Transcribed By: ALVIN Transcribed Date/Time: 02/14/23 3:[address] Lumbar Spine W/ Contrast Event Date: 02/14/2023 15:23:13 EDT Updated: 02/14/2023 16:[address] Lumbar Spine W/ Contrast This document has an image Reason For Exam Spine fracture, lumbar, traumatic;Other: RESULT: CT Lumbar Spine W/ Contrast CT Abd/Pelvis W/ IV Contrast Only, CT Lumbar Spine W/ Contrast HX OF PRESENT ILLNESS: fall; Abd trauma, blunt; Clinical Question(s): solid organ injury, perforation free fluid TECHNIQUE: Spiral CT through the abdomen and pelvis with IV contrast formatted in 3 planes. 100 cc of Omnipaque 300 was administered intravenously. This study was performed without oral contrast. Weight-based protocol using automatic tube modulation was used to optimize exposure parameters. CTDIvol Body: 9.32 mGy, DLP Body: 504 mGy*cm. COMPARISON: None. FINDINGS: Broadband Engineer View Findings, Lines and Tubes: None. Visualized Chest: Consolidative opacity in the right lower lobe. Patchy opacities in the left lowerlobe. No pleural effusion. No pericardial effusion. Diaphragm: Normal. Liver: Normal. Gallbladder: No CT evidence of gallbladder pathology. Bile ducts: No biliary ductal dilation. Spleen: Normal. Pancreas: Normal. Adrenal glands: Normal. Kidneys and ureters: No hydronephrosis, stones, or suspicious masses. Bladder: Normal. Reproductive organs: Unremarkable. Stomach, small bowel, and large bowel: Normal caliber stomach. The bowel loops are fluid-filled. The small bowel is largely decompressed. The large bowel demonstrates multiple air-fluid levels without any focal area of obstruction. Bowel jurado are normally enhancing. Appendix: Not seen, but no evidence of appendicitis. Peritoneum and retroperitoneum: No ascites or pneumoperitoneum. No omental or mesenteric lesions. Lymph nodes: No enlarged lymph nodes. Blood vessels: Normal. No aneurysm. No evidence of venous thrombosis. Abdominal and pelvic wall: Diffuse mild enlargement of the right gluteal musculature which appears edematous. No focal hematoma. Bones: No acute abnormality. IMPRESSION: 1. Bilateral lower lobes airspace opacities, more confluent on the right, suggestive of multifocal pneumonia, possibly aspiration pneumonia. 2. Fluid throughout the colon suggests a diarrheal illness. No overt colitis. 3. Subtle edema and mild expansion throughout the right gluteal musculature suggests myositis. Correlate clinically for rhabdomyolysis. Findings relayed through secure messaging to Dr. Jacobs at [facility] on 02/06/2023 at 3:58 PM. I have personally reviewed the images and I agree with this report. WSN: [id number] Ordering Physician: Irineo Jacobs Signature Line Dictated By: Abimbola Moscoso MD Dictated Date/Time: 02/14/23 4:00 pm Reviewed By: Cory Kumar MD Signed By: Cory Kumar MD Signed Date/Time: 02/14/23 4:05 pm Transcribed By: ALVIN Transcribed Date/Time: 02/14/23 3:[address] Lumbar Spine W/ Contrast CT Abd/Pelvis W/ IV Contrast Only Event Date: 02/14/2023 15:23:13 EDT Updated: 02/14/2023 16:[address] Abd/Pelvis W/ IV Contrast Only This document has an image Reason For Exam Abd trauma, blunt;Other: RESULT: CT Abd/Pelvis W/ IV Contrast Only CT Abd/Pelvis W/ IV Contrast Only, CT Lumbar Spine W/ Contrast HX OF PRESENT ILLNESS: fall; Abd trauma, blunt; Clinical Question(s): solid organ injury, perforation free fluid TECHNIQUE: Spiral CT through the abdomen and pelvis with IV contrast formatted in 3 planes. 100 cc of Omnipaque 300 was administered intravenously. This study was performed without oral contrast. Weight-based protocol using automatic tube modulation was used to optimize exposure parameters. CTDIvol Body: 9.32 mGy, DLP Body: 504 mGy*cm. COMPARISON: None. FINDINGS: Broadband Engineer View Findings, Lines and Tubes: None. Visualized Chest: Consolidative opacity in the right lower lobe. Patchy opacities in the left lowerlobe. No pleural effusion. No pericardial effusion. Diaphragm: Normal. Liver: Normal. Gallbladder: No CT evidence of gallbladder pathology. Bile ducts: No biliary ductal dilation. Spleen: Normal. Pancreas: Normal. Adrenal glands: Normal. Kidneys and ureters: No hydronephrosis, stones, or suspicious masses. Bladder: Normal. Reproductive organs: Unremarkable. Stomach, small bowel, and large bowel: Normal caliber stomach. The bowel loops are fluid-filled. The small bowel is largely decompressed. The large bowel demonstrates multiple air-fluid levels without any focal area of obstruction. Bowel jurado are normally enhancing. Appendix: Not seen, but no evidence of appendicitis. Peritoneum and retroperitoneum: No ascites or pneumoperitoneum. No omental or mesenteric lesions. Lymph nodes: No enlarged lymph nodes. Blood vessels: Normal. No aneurysm. No evidence of venous thrombosis. Abdominal and pelvic wall: Diffuse mild enlargement of the right gluteal musculature which appears edematous. No focal hematoma. Bones: No acute abnormality. IMPRESSION: 1. Bilateral lower lobes airspace opacities, more confluent on the right, suggestive of multifocal pneumonia, possibly aspiration pneumonia. 2. Fluid throughout the colon suggests a diarrheal illness. No overt colitis. 3. Subtle edema and mild expansion throughout the right gluteal musculature suggests myositis. Correlate clinically for rhabdomyolysis. Impression and Plan 48 yoM trauma consult s/p fall with long lay on the ground yesterday morning. 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 At the time of my review the patient was vitally normal. He had a Ramachandran catheter and was making some urine but his labs revealed significant CHRISTIAN and hyperkalemia. Exam was notable for right gluteal tenderness and firmness that was noncompressible. His right thigh was alsofirm but less tense. CT scan was concerning for myositis in the right gluteal region. Given these findings patient was admitted to the trauma surgical team for emergent fasciotomy. Injuries Right-sided gluteal compartment and thigh compartment syndrome right chin superficial abrasion Interventions OR Consultants Renal Plan NPO IVF renal consult Medicine consult for takeover care postop. OR emergently for fasciotomy Consented Added on Tert in the am Discussed with Dr Guadalupe Trauma [id number] * Rodo Guadalupe MD: PERFORM Event Display: History and Physical Hospital Authored Date: Attending Attestation: The patient was seen, examined, and discussed with the team on the date of service documented. The clinical course, labs, and radiological studies were reviewed by me and findings on exam confirmed. I agree with the findings and assessment and plan as delineated above. --- Rodo Guadalupe MD Division of Trauma, Acute Care Surgery, and Surgical Critical Care Admission evaluation note * Pati Dupont MD: MODIFY Pati Dupont MD: MODIFY, MODIFY Event Display: Admission Note Authored Date: Patient: ??ALEXANDRE BAEZA ? Age:??48 Years?Sex:??Male?:??1975?? Chief Complaint compartment syndrome History of Present Illness 48-year-old male with??history of polysubstance use, congenital deafness presented to the hospital on??February 14 after being found down.?? Reportedly used cocaine??and was found by a friend after being down on the floor for roughly 24 hours. ??On arrival to the emergency room there were concerns for compartment syndrome of the right gluteal??compartment, he was taken emergently to surgery??for fasciotomy. ??He was in renal failure??from severe rhabdomyolysis.?? After his procedure, he was unable to be extubated??successfully in??PACU?? (reintubated due to stridor and wheezing) and was sent??to the medical ICU for further care. ??Underwent emergent dialysis for severe hyperkalemia??on the nightof admission.?? Remained mechanically ventilated and was started on empiric antibiotics as well as hydrated??with LR.?? Was extubated successfully on the , transferred to??the floor??today. Currently has his wounds dressed and there are plans to take him back to the OR tomorrow for closure. ?? At time of examination, he is resting comfortably in no distress. ??He is able to tell me that he is pain is well controlled and that he just wants to rest.?? The nurse also informed me that with the use of a senior design engineering specialist, the patient complained of sore throat and mild abdominal pain. Review of Systems Constitutional:??No weight loss, fever, chills, weakness or fatigue. Allergy/Immune: Denies any??Eczema or hives Eyes:??No visual loss, blurred vision, double vision or yellow sclera ENT:??No hearing loss, sneezing, congestion, runny nose. + sore throat Respiratory:??No shortness of breath, cough or sputum production. Cardiovascular:??No chest pain, chest pressure or chest discomfort. No palpitations or pedal edema. Gastrointestinal:??No anorexia, nausea, vomiting. + abdominal pain Genitourinary:??No burning micturition. No urinary frequency or incontinence. Neurologic:??No headache, dizziness, syncope, unilateral weakness, ataxia, numbness or tingling in the extremities. No change in bowel or bladder control. Musculoskeletal:??R gluteal pain, no back pain, joint pain or stiffness. Hematologic/Lymphatics:??No bleeding or bruising. No painful lymph nodes. Skin:??No rash or itching. Endocrine:??No reports of sweating. No cold or heat intolerance. No polyuria or polydipsia. Psychiatric:??No depression or anxiety. Physical Exam Vitals & Measurements T:??97.6?F?? TMIN:??97.6?F?? TMAX:??99.3?F?? HR:??73??(Peripheral)?? RR:??20?? BP:??145/83?? SpO2:??100%?? WT:??65.4??kg?? Constitutional: Alert, in no distress. Mental Status: Awake, alert, oriented Head: Normocephalic. Eyes: Pupils are equal, round and reactive to light. Extraocular muscles intact. Ear, Nose and Throat: Oropharynx clear, mucous membranes moist. Neck: Supple, Full range of motion. Respiratory: Clear to auscultation. No wheezing, rales or rhonchi. Cardiovascular: S1 S2 regular. No murmurs, rubs or gallops. Peripheral pulses in tact Gastrointestinal: Abdomen soft, non-tender, non-distended. Neurologic: Cranial nerves II-XII grossly intact. Skin: No rashes or lesions. No petechiae or purpura.?? Musculoskeletal: R lower extremity dressed, no calf tenderness or erythema Psychiatric: Normal mood and affect Assessment/Plan 1. Compartment syndrome of R gluteus - S/p fasciotomy on 02/14 - Currently open and dressed, NPO at midnight for closure in OR tomorrow -??Continue unasyn - Pain management with acetaminophen, oxycodone and PRN dilaudid ?? 2. Acute kidney injury, ADRIAN class 3 requiring hemodialysis - Secondary to severe rhabdomyolysis - Currently oliguric, no acute indication for dialysis - HD PRN per nephrology, appreciate recommendations - AM labs ?? 3. Aspiration pneumonia - Successful extubation - No oxygen requirement - Continue unasyn ?? 4. Polysubstance abuse - Consider addiction med consult ?? 5. Facial cellulitis - Unasyn ?? 6. Transaminitis - Likely secondary to rhabdomyolysis - Downtrending appropriately ?? DVT PPX: heparin Diet: dental soft, NPO after midnight ?? Discussed with Dr. Cresencio Duff DO PGY-4 ?? The patient seen and examined on this date. The case reviewed in detail lwith admitting fellow on this date. I reviewed and agree as above, Dvt, moderate risk. Pati Dupont MD Problem List/Past Medical History polysubstance abuse Procedure/Surgical History none reported Medications Inpatient Acetaminophen IVPB, 650 mg= 65 mL, IVPB, Every 8 hours Bisacodyl Supp, 10 mg= 1 supp, Rectally, Daily, PRN Chloraseptic Lozenge, 1 lozenge, By Mouth, Every 3 hours, PRN Dextrose 50% Inj Syringe (25Gm), 25 Gm, IV Push Slowly, Once Docusate/Senna Tablet, 1 tablet, By Mouth, 2 times a day, PRN Heparin Inj, 5000 units= 1 mL, Subcutaneous Injection, 3 times a day HYDROmorphone Inj, 1 mg= 1 mL, IV Push Slowly, Every 2 hours, PRN Insulin REGULAR Inj, 8 units= 0.08 mL, IV Push Slowly, Once Melatonin Tablet, 3 mg, By Mouth, Daily at bedtime, PRN MiraLax Powder, 17 Gm= 1 pack/packet, By Mouth, Daily, PRN NaCL 0.9% Flush, 3 mL, IV Push, Every 8 hours NaCL 0.9% Flush, 3 mL, IV Push, Every 8 hours, PRN nalOXONE Inj, 0.1 mg= 0.25 mL, IV Push Slowly, Every 5 minutes, PRN Ondansetron Inj, 4 mg, IV Push, Every 8 hours, PRN oxyCODONE 5 mg oral tablet, 5 mg, By Mouth, Every 6 hours Racemic 2.25% Inhalation, 0.5 mL, BAND Nebulizer, Every 4 hours, PRN Unasyn IVPB, 3 Gm, IVPB, Every 24 hours Home No active home medications Allergies NKA Social History polysubstance abuse, smokes cigarettes and marijuana, denies alcohol Family History none reported * Jessica CASTELLANO, Ashlee: MODIFY, MODIFY, MODIFY, MODIFY, MODIFY, MODIFY, MODIFY, PERFORM Event Display: Admission Note Authored Date: [id number] Patient: ??MAHENDRA ALEXANDRE GONSALVES ? Age:??48 Years?Sex:??Male?:??1975?? Chief Complaint/Reason for Consultation per , pt fell out of bed, got back into bed. now can bend hip or knee on right side. pt deaf and mute. brusing noted to right knee History of Present Illness 48-year-old gentleman with deafness and mutism presented to [facility] [place] on 02/14 for evaluation of fall after being found on the floor for approximately 24 hours. ?? As per ED documentation patient reportedly took cocaine last night he was able to get himself off the ground. ??A friend found him on the floor and called EMS. ??History was limited from patient he is deaf and mute and had altered mental status. Patient presented with vitals blood pressure 127/97, 92% on room air, afebrile, heart rate 93 work-up done showed normal CBC, INR 1.1,, potassium seven-point bicarb 19 creatinine 4.6, BUN 92, AST 3517, ALT 1360 high-sensitivity troponin 102, 9000, CK-MB greater than 600, NT proBNP 4559. ??U tox positive for cocaine salicylate level less than 0.3, Tylenol less than 5 UA with 2+ albumin, trace glucose, 3+ hemoglobin trace leukocyte, [address] ??CT head/brain showed no acute abnormality, bifrontal encephalomalacia compatible with remote insult CT abdomen/pelvis showed fluid throughout the colon suggestive of a diarrheal illness, bilateral lower lobe airspace opacities more on the right suggestive of multifocal pneumonia possibly aspiration pneumonia. ??Subtle edema and mild expansion throughout the right gluteal musculature suggests myositis. ??Surgery was consulted for concerns of compartment syndrome and was taken emergently to the OR for right-sided gluteal compartment and thigh compartment syndrome. ??Patient was intubated for the procedure, the procedure itself was uncomplicated patient required small amount of Eusebio-Synephrine. ??Postop patient was noticed to have stridor and wheezing and was unable to be extubated, he was also noticed to have right chin swelling with redness forwhich CT soft tissue was ordered ?? In the??medical ICU Patient presented hypertensive to 200s, not on any sedation. ??Suspect pain related. ??Patient was started on fentanyl and propofol. ??EKG done showed tall T waves and he was given 1 dose of calcium.Renal was consulted for urgent dialysis. Review of Systems Limited Objective Vital Signs?? Temperature: 98.9 DegF (02/14/23 22:46:00) Temperature Route: Oral (02/14/23 12:17:00) Pulse Rate: 79 bpm (02/14/23 18:50:00) Heart Rate Monitored: 84 bpm (02/14/23 22:46:00) Respiratory Rate: 18 br/min (02/14/23 22:46:00) Systolic Blood Pressure:??202 mm Hg??High (02/14/23 22:44:00) Diastolic Blood Pressure:??104 mm Hg??High (02/14/23 22:44:00) Systolic Arterial Blood Pressure:??199 mm Hg??High (02/14/23 22:46:00) Diastolic Arterial Blood Pressure:??101 mm Hg??High (02/14/23 22:46:00) Blood pressure sites: Arm, left (02/14/23 22:44:00) Mean Arterial Pressure: 137 mm Hg (02/14/23 22:44:00) Mean Arterial Pressure Monitored: 139 mm Hg (02/14/23 22:46:00) Pulse Pressure: 98 mm Hg (02/14/23 22:44:00) Oxygen Saturation: 99 % (02/14/23 22:46:00) Mode of Delivery (Oxygen): Room air (02/14/23 18:50:00) FiO2: 80 % (02/14/23 23:02:00) ? Physical Exam General: Patient in no acute distress?? HEENT: normocephalic, atraumatic, right jaw swelling with redness and palpable abcess Respiratory: bilateral equal air entry, no wheezing CVS: regular rate and rhythm, S1 and S2 present, no murmurs, rubs or gallops. No JVD.?? Abdomen: soft, non tender, non distended, bowel sounds present, no organomegaly.?? 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 Currently in ICU for emergent dialysis ?? Neuro Intubated and sedated Substance use disorder? presenting after found down on ground for apx 24 hrs used cocaine last night. 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 Plan: Sedation: Propofol Analgesia: Fentanyl Addiction med consult when out of ICU ? Cardiovascular Hypertension: Resolved suspect pain related No active issues ?? Plan: Map >65 ?? Pulm Intubated for OR s/p failed extubation in PACU Concerns of aspiration pneumonia as per surgery post op in pacu after extubation,??patient was noted to have stridor and wheezing, his Po2 on abg was in 50s needing reintubation ?? Plan SBT in the am if concerns of laryngeal edema will need steroids ABx as below ? Renal: Severe rhabdomyolysis Acute renal failure Hyperkalemia/hyponatremia AGMA/lactic acidosis in the setting of being on the floor for so long s/p treatment for hyperk with calcium and insulin ?? Plan: Urgent dialysis today Monitor lytes and lactate Renal consult Repleat calcium as appropriate Continues to make urine start IVF at 150/hr and monitor Is/Os ?? MSK Right gluteal and thigh compartment syndrome s/p emergent fasciotomy OR 02/14 Right Jaw swelling/abscess In the setting of prolonged downtime s/p emergent fasciotomy in OR by surgery Has??right jaw swelling??with redness, possible abscess? dressing soaked with serosang discharge, change by trauma surgery ?? Plan: CT soft tissue??head and neck Continue??vancomycin and??unsay??for now Management of??right??thigh??wound as per surgery ? ID Right jaw abscess/swelling? - cellulitis? Right sided aspiration pneumonia CT abdomen/pelvis showed bilateral lower lobe airspace opacities, more confluent on the right suggestive of possible aspiration pneumonia Continues to have thick sputum??off of the ET tube Fluid throughout the colon suggests a diarrheal illness. No overt colitis ?? Plan: Continue vanc and Unasyn for now (mostly for jaw swelling) CT soft tissue head IV fluids No more diarrhea - if more episodes of diarrhea consider c-diff f/u blood cultures ?? GI diarrhea: Resolved Elevated LFTS cocaine withdrawal vs c-diff? None since being in the ICU LFTs due to rhabdo/prolonged downtime ?? Plan: Repeat LFTs Hepatitis panel pending NPO for now ?? Endo No active concerns POC q 6 hrs while NPO ?? Diet: npo DVT prophylaxis: heparin sub q Code Status: full ?? Patient case and plan discussed with Dr. Tasia Lopez MD Internal Medicine PGY-3 Pager: [phone] Histories Allergies Allergies ?(Active and Proposed Allergies Only) NKA? (Severity: Unknown severity, Onset: Unknown) ? Past Medical History/Problem List None ?? Past Surgical History No surgery history documented. ? Social History No social history documented. ? Family History No family history recorded. ? [facility] ?? Unable to obtain Medications Home Medications No medications documented.? Inpatient Medications Medications (20) Active SCHEDULED: (8) Calcium Gluconate 9.2mEq/100mLNaCL (2Gm) ??9.2 mEq 100 mL, IVPB, Once Chlorhexidine 0.12% Oral Rinse UD (Peridex 0.12% Liquid) ??15 mL, Topically, 2 times a day Dextrose Inj Syringe (Dextrose 50% Inj Syringe (25Gm)) ??25 Gm, IV Push Slowly, Once Docusate Sodium 100 mg Capsule (Docusate Sodium Capsule) ??100 mg 1 capsule, By Mouth, 2 times a day Famotidine 10 mg/mL Inj (Famotidine Inj) ??20 mg 2 mL, IV Push Slowly, Every 12 hours Heparin 5000 units/mL Inj (1 mL) (Heparin Inj) ??5,000 units 1 mL, Subcutaneous Injection, 3 times a day Insulin Regular 100 units/mL Inj (3mL) (Insulin REGULAR Inj) ??8 units 0.08 mL, IV Push Slowly, Once NaCl 0.9% Flush 3ml (NaCL 0.9% Flush) ??3 mL, IV Push, Every 8 hours CONTINUOUS: (3) Fentanyl 1000mcg/100mL NaCL 1,000 mcg (FENTanyl 1000mcg / 100mL NaCl 1,000 mcg) ??1,000 mcg 100 mL,IV Infusion Lactated Ringers (1000 mL) Cont IV 1,000 mL (LR 1,000 mL) ??1,000 mL, IV Infusion, 200 mL/hr Propofol 10mg/mL Cont IV (100mL) 1,000 mg (Propofol 1% /100 mL 1,000 mg) ??1,000 mg 100 mL, IV Infusion PRN: (9) Acetaminophen 325 mg Tablet (Acetaminophen Tablet) ??650 mg, By Mouth, Every 4 hours Bisacodyl 10 mg Suppository (Bisacodyl Supp) ??10 mg 1 supp, Rectally, Daily Dextromethorphan-Guaifenesin 20 mg-200 mg/10 mL Liqu UD (Robitussin DM Liquid) ??10 mL, By Mouth, Every 4 hours Melatonin 3 mg Tablet (Melatonin Tablet) ??3 mg, By Mouth, Daily at bedtime NaCl 0.9% Flush 3ml (NaCL 0.9% Flush) ??3 mL, IV Push, Every 8 hours Ondansetron 2mg/mL Inj (2mL Vial) (Ondansetron Inj) ??4 mg, IV Push, Every 8 hours Polyethylene Glycol 17 Gm Powder (MiraLax Powder) ??17 Gm 1 pack/packet, By Mouth, Daily Senna 8.6 mg / Docusate 50 mg tablet (Docusate/Senna Tablet) ??1 tablet, By Mouth, 2 times a day Simethicone 80 mg Chewable Tablet (Simethicone Tablet) ??80 mg, Chew, 3 times a day ? Results Recent Labs BLOOD BANK Blood Type B Positive ()?? 02/14/2023 13:38 Antibody Screen Negative ()?? 02/14/2023 13:38 ?? BLOOD COUNT & DIFF WBC 7.7 k/mm3 ()?? 02/14/2023 13:40 RBC 5.09 m/mm3 ()?? 02/14/2023 13:40 Hgb 14.3 Gm/dL ()?? 02/14/2023 13:40 Hct 42.6 % ()?? 02/14/2023 13:40 MCV 83.7 femtoliters ()?? 02/14/2023 13:40 MCH 28.1 pg ()?? 02/14/2023 13:40 MCHC 33.6 g/dL ()?? 02/14/2023 13:40 Platelet Count 184 k/mm3 ()?? 02/14/2023 13:40 RDW-SD 39.9 femtoliters ()?? 02/14/2023 13:40 MPV 10.1 femtoliters ()?? 02/14/2023 13:40 Nucleated RBC (Automated) 0.3 #/100 WBC'S ()?? 02/14/2023 13:40 Abs. NRBC 0.0 k/mm3 ()?? 02/14/2023 13:40 Abs. Neut 6.2 k/mm3 ()?? 02/14/2023 13:40 Abs. Lymph 1.1 k/mm3 ()?? 02/14/2023 13:40 Abs. [place] 0.4 k/mm3 ()?? 02/14/2023 13:40 Abs. Eo 0.0 k/mm3 ()?? 02/14/2023 13:40 Abs. Baso 0.0 k/mm3 ()?? 02/14/2023 13:40 Neut % 80.4 % (High)?? 02/14/2023 13:40 Lymph % 13.8 % (Low)?? 02/14/2023 13:40 [place] % 4.8 % ()?? 02/14/2023 13:40 Eos % 0.0 % ()?? 02/14/2023 13:40 Baso % 0.1 % ()?? 02/14/2023 13:40 Hemoglobin (POC) POC Cartridge 12.2 Gm/dL (Low)?? 02/14/2023 22:40 Hematocrit (POC) POC Cartridge 36 % (Low)?? 02/14/2023 22:40 Imm Gran 0.9 % ()?? 02/14/2023 13:40 Abs. Imm Gran 0.1 k/mm3 ()?? 02/14/2023 13:40 ?? BLOOD GAS pH (POC) POC Cartridge 7.28 (Low)?? 02/14/2023 22:40 pCO2 (POC) POC Cartridge 37.3 mm Hg ()?? 02/14/2023 22:40 pO2 (POC) POC Cartridge 99 mm Hg (High)?? 02/14/2023 22:40 Estimated Bicarbonate (POC) POC Cart 17.6 mmol/L (Low)?? 02/14/2023 22:40 % O2 Sat Arterial (POC) POC Cartridge 97 % ()?? 02/14/2023 22:40 Lactate, (POC) POC Cartridge 0.7 mmol/L ()?? 02/14/2023 22:47 pH Venous (POC) POC Cartridge 7.34 ()?? 02/14/2023 18:42 pCO2 Venous (POC) POC Cartridge 33.8 mm Hg (Low)?? 02/14/2023 18:42 pO2 Venous (POC) POC Cartridge 73 mm Hg (High)?? 02/14/2023 18:42 Est Bicarbonate (POC) POC Cartridge 18.4 mmol/L (Low)?? 02/14/2023 18:42 % O2 Sat Venous (POC) POC Cartridge 94 ()?? 02/14/2023 18:42 Base Excess (POC) POC Cartridge NEGATIVE 9 ()?? 02/14/2023 22:40 pH 7.28 (Low)?? 02/14/2023 22:57 pCO2 35 mm Hg (Low)?? 02/14/2023 22:57 pO2 186 mm Hg (High)?? 02/14/2023 22:57 Bicarbonate, Estimated 16 mmol/L (Low)?? 02/14/2023 22:57 Specimen Type - Blood Gas ARTERIAL ()?? 02/14/2023 22:57 Percent O2 (FIO2) 100 ()?? 02/14/2023 22:57 ?? CARDIAC CK, Total 15047 units/L (High)?? 02/14/2023 18:11 CK MB Confirmation - Quant >600.0 ng/mL (High)?? 02/14/2023 18:11 Nt-Probnp 4559 pg/mL (High)?? 02/14/2023 18:11 High Sensitivity Troponin (HSTnT) 102 ng/L (Critical)?? 02/14/2023 15:55 ?? CHEM GENERAL Sodium 124 mmol/L (Low)?? 02/14/2023 15:55 Potassium HEMOLYZED mmol/L ()?? 02/14/2023 15:55 Chloride 91 mmol/L (Low)?? 02/14/2023 15:55 Bicarbonate Level 17 mmol/L (Low)?? 02/14/2023 15:55 Anion Gap 16 ()?? 02/14/2023 15:55 Sodium (POC) POC Cartridge 127 mmol/L (Low)?? 02/14/2023 22:40 Potassium (POC) POC Cartridge 6.3 mmol/L (Critical)?? 02/14/2023 22:40 Glucose Level 102 mg/dL (High)?? 02/14/2023 13:40 Glucose (POC) POC Cartridge 113 (High)?? 02/14/2023 22:40 Glucose, POC 111 mg/dL (High)?? 02/14/2023 16:16 BUN 92 mg/dL (High)?? 02/14/2023 13:40 Creatinine-Blood 4.6 mg/dL (High)?? 02/14/2023 13:40 Estimated GFR Creatinine 15 ML/MIN/1.73 M2 ()?? 02/14/2023 13:40 Calcium 5.9 mg/dL (Low)?? 02/14/2023 13:40 Ionized Calcium (POC) POC Cartridge 0.95 mmol/L (Critical)?? 02/14/2023 22:40 Protein, Total 7.4 Gm/dL ()?? 02/14/2023 13:40 Albumin 3.7 Gm/dL ()?? 02/14/2023 13:40 AG Ratio 1.0 ()?? 02/14/2023 13:40 LDH HEMOLYZED units/L ()?? 02/14/2023 15:55 Alkaline Phosphatase 111 units/L ()?? 02/14/2023 13:40 Lipase 51 units/L ()?? 02/14/2023 13:40 AST (SGOT) 3517 units/L (High)?? 02/14/2023 13:40 ALT (SGPT) 1360 units/L (High)?? 02/14/2023 13:40 Bilirubin, Total 0.7 mg/dL ()?? 02/14/2023 13:40 Lactate 1.4 mmol/L ()?? 02/14/2023 13:40 ?? COAG INR 1.1 ()?? 02/14/2023 15:55 Protime (PT) 11.9 seconds (High)?? 02/14/2023 15:55 APTT 31.2 seconds ()?? 02/14/2023 13:40 ?? HEME OTHER Hold Lavender Top SPECIMEN DISCARDED AFTER 24 HOURS. ()?? 02/14/2023 15:55 Hold Lavender Top 2 SPECIMEN DISCARDED AFTER 24 HOURS. ()?? 02/14/2023 15:55 ?? MISC. CHEMISTRY Ammonia, Venous 39 ??mole/L ()?? 02/14/2023 18:26 Hold Green Top SPECIMEN DISCARDED AFTER 1 WEEK ()?? 02/14/2023 13:40 Hold Red Top SPECIMEN DISCARDED AFTER 1 WEEK ()?? 02/14/2023 13:40 ?? TOXICOLOGY/TDM Ethanol, Serum or Plasma NONE DETECTED mg/dL ()?? 02/14/2023 13:40 Salicylate Level <0.3 mg/dL (Low)?? 02/14/2023 15:55 Barbiturate Screen, Urine NONE DETECTED ()?? 02/14/2023 16:10 Cannabinoid Screen, Urine NONE DETECTED ()?? 02/14/2023 16:10 Cocaine Metabolite Screen, Urine POSITIVE (Abnormal)?? 02/14/2023 16:10 Benzodiazepine Screen, Urine NONE DETECTED ()?? 02/14/2023 16:10 Amphetamine Screen, Urine NONE DETECTED ()?? 02/14/2023 16:10 Opiate Screen, Urine NONE DETECTED ()?? 02/14/2023 16:10 Acetaminophen Level <5 mg/L (Low)?? 02/14/2023 15:55 ?? UA/URINALYSIS Appear/Color, Urine YELLOW ()?? 02/14/2023 16:10 Specific [place], Urine 1.018 ()?? 02/14/2023 16:10 pH, Urine 5.5 ()?? 02/14/2023 16:10 Albumin, Urine 2+ (Abnormal)?? 02/14/2023 16:10 Glucose, Urine TRACE (Abnormal)?? 02/14/2023 16:10 Ketones, Urine NEGATIVE ()?? 02/14/2023 16:10 Bilirubin, Urine NEGATIVE ()?? 02/14/2023 16:10 Hemoglobin, Urine 3+ (Abnormal)?? 02/14/2023 16:10 Nitrite, Urine NEGATIVE ()?? 02/14/2023 16:10 Leukocyte, Urine TRACE (Abnormal)?? 02/14/2023 16:10 Urobilinogen NORMAL mg/dL ()?? 02/14/2023 16:10 WBC's, Urine 1 /HPF ()?? 02/14/2023 16:10 RBC's, Urine 18 /HPF (High)?? 02/14/2023 16:10 Squamous Epith 1 /HPF ()?? 02/14/2023 16:10 Amorphous Crystals SLIGHT /HPF ()?? 02/14/2023 16:10 Mucus SLIGHT /LPF ()?? 02/14/2023 16:10 Hold Urine Culture Testing available 48 hours from time of collection. ()?? 02/14/2023 16:10 ?? VIROLOGY COVID-19 by RT-PCR NEGATIVE ()?? 02/14/2023 13:48 ? * Tasia CASTELLANO, Clint D: PERFORM Event Display: Admission Note Authored Date: [id number] MICU Attending Attestation ?? I have seen and evaluated??ALEXANDRE MCCRAY GONSALVES. I have personally reviewed the HPI, PMFSH, and ROS. I have personally reviewed the lab, radiography, and study results from this admission. I have discussed the case with and agree with the findings, assessment, and plan as documented below with the following highlights, clarifications, and addenda. ?? Assessment: # Severe Hyperkalemia: Requiring emergent hemodialysis due to... # Acute Renal Failure: Likely multifactorial due to prerenal azotemia and??... # Non-Traumatic Rhabdomyolysis: Likely due to prolonged immobilization after drug use with... # Right Gluteal & Thigh Compartment Syndrome: Status post fasciotomy with underlying viable muscle, complicated by... # Acute Hypoxemic Respiratory Failure: Re-intubated in PACU shortly after extubation due to hypoxemia in the setting of... # Post-Expiratory Stridor: Unclear etiology, laryngeal edema unusual for britney- operative intubation,possibly laryngospasm # Severe Sepsis:??Potential sources include??right mandible cellulitis vs. less likely Joe's angina and aspiration pneumonia # Right Facial Cellulitis: Possible phlegmon or less likely foreign body over right mandible, no evidence of abscess on POCUS # Right Middle Lobe Pneumonia: Aspiration pneumonia favored given history but may be community-acquired pneumonia # Elevated Transaminases: Likely predominantly from rhabdomyolysis but liver injury also possible given ALT elevation # Toxic Metabolic Encephalopathy: Likely due to sedation and critical illness delirium, hard to assess due to deafness # Hypocalcemia: Gradually improving with repletion # Cocaine Use Disorder ?? Plan: - Emergent hemodialysis on MICU admission - LR 150mL/hour to facilitate renal cast clearance - Serial RLE neurovascular assessments, hourly to start - Follow up surgery recommendations and tertiary evaluation - Lung protective ventilation (TV 6mL/kg IBW, RR < 35, pH 7.2-7.4, PPlat < 30, DP < 15, SpO2 90-94% or pO2 60-80) - Titrate Propofol infusion??to goal RASS 0 and Fentanyl infusion with boluses as needed to CPOT < 2 - SAT/SBT in the morning, check cuff leak and if not present would consider starting dexamethasone - Empirical Vancomycin and Ampicillin-Sulbactam pending blood/sputum cultures and MSRA nasal PCR - After HD check CT neck (prefer with IV contrast if getting HD again on 02/15 otherwise without contrast) - Trend LFTs and follow up viral hepatitis serologies - Delirium precuations, avoid benzodiazepines - Continue calcium repletion Remainder as below ?? ALEXANDRE GONSALVES??is critically ill due to the problems and diagnoses listed above, with a high probability of life-threatening deterioration or . I personally spent??50 minutes of non-overlapping critical care time evaluating and managing the patient, excluding time spent teaching??or per forming separately billable procedures. ?? Clint Dozier MD [facility] Pager [phone] EKG study * Event Display: ECG 12-Lead Authored Date: Please click on pdf link to open report * Event Display: ECG 12-Lead Authored Date: Ventricular Rate: 83 BPM Atrial Rate: 83 BPM P-R Interval: 146 ms QRS Duration: 110 ms Q-T Interval: 392 ms QTC Calculation(Bazett): 460 ms P Heath: 64 degrees R Heath: -44 degrees T Heath: 67 degrees Normal sinus rhythm Left axis deviation Poor R wave progression in V1-V3 may be normal variant or due to anteroseptal infarct or misplaced leads Low voltage QRS Abnormal ECG When compared with ECG of 14-FEB-2023 15:35, No significant change Confirmed by CHEMA GONZALEZ DO ([id number]) on 02/22/2023 10:18:54 AM [place]: CHEMA GONZALEZ DO * Event Display: ECG 12-Lead Authored Date: Please click on pdf link to open report * Event Display: ECG 12-Lead Authored Date: Ventricular Rate: 80 BPM Atrial Rate: 80 BPM P-R Interval: 134 ms QRS Duration: 100 ms Q-T Interval: 442 ms QTC Calculation(Bazett): 509 ms P Heath: 76 degrees R Heath: 19 degrees T Heath: 49 degrees Normal sinus rhythm Prolonged QT Abnormal ECG No previous ECGs available Confirmed by ABDIAS ALCAZAR MD ([id number]) on 02/17/2023 6:12:11 PM [place]: ABDIAS ALCAZAR MD Cardiology * Event Display: Cardiac Rhythm Strips Authored Date: * Event Display: Cardiac Rhythm Strips Authored Date: * Event Display: Cardiac Rhythm Strips Authored Date: Hospital Progress note * Jennifer Garrido RN: PERFORM, MODIFY, MODIFY, SIGN, VERIFY Event Display: Progress Note Hospital Authored Date: [id number] Patient: [facility]: [id number] Age: 48 years Sex: Male : 1975 Associated Diagnoses: None Author: Jennifer Garrido RN Findings Problem Related to Alteration in Integumentary : Alteration in Integumentary/new 03/04/2023 13:11 EDT Alteration in Integumentary Related to Other: compartment syndrome Goals & Outcomes, Integumentary Nutritional intake is adequate for metabolic needs, Pt will maintain adequate fluid & nutritional balance, Pt will maintain intact skin integrity, Wound will progress towards healing Interventions, Integumentary Consult Wound Care as needed for further interventions, Encourage & assist pt to change position frequently, Encourage & assist with range of motion exercises, Ensure relief modes are on mattress surface & utilized, Keep linen clean, dry and wrinkle free, Keep skin clean & dry, Minimize friction, shear and moisture, Record extent of impaired skin integrity, Use pressure dispersing devices as appropriate Goals/Interventions, Integumentary Yes Integumentary, Problem Start 02/14/2023 23:26 Reviewed plan with, Integumentary Patient Patient Progression, Integumentary Pt progressing according to plan . Evaluation Pt. deaf. Indonesian speaking, able to read lips. C/O 12/28-06/29 pain, PRN oxycodone administered. Low calcium and mag, Dr. Vera notified. Respirations even and steady on RA. +PP, no edema. Voiding in the bathroom, last BM 03/03. OOB and ambulating independently with steady gait. Pt. being discharged home. Discharge instructions reviewed with . Demonstrated to how to complete wound care.Peripheral IV removed with catheter intact and pressure dressing applied. Pt. accompanied off unit in wheelchair by staff member. . * Candida Schrader RN: PERFORM, SIGN, VERIFY Event Display: Progress Note Hospital Authored Date: Patient: ALEXANDRE BAEZA Age: 48 years Sex: Male : 1975 Associated Diagnoses: None Author: Candida Schrader RN Findings Problem Related to Alteration in Integumentary : Alteration in Integumentary/new 03/03/2023 8:00 EDT Alteration in Integumentary Related to Other: compartment syndrome Goals & Outcomes, Integumentary Nutritional intake is adequate for metabolic needs, Pt will maintain adequate fluid & nutritional balance, Pt will maintain intact skin integrity, Wound will progress towards healing Interventions, Integumentary Cleanse all wounds with Normal Saline, Encourage & assist pt to change position frequently, Ensure relief modes are on mattress surface & utilized, Keep linen clean, dry and wrinkle free, Keep skin clean & dry Goals/Interventions, Integumentary Yes Integumentary, Problem Start 02/14/2023 23:26 Reviewed plan with, Integumentary Patient Patient Progression, Integumentary Pt progressing according to plan . Evaluation Pt A+O x3, Crosscutter utilized. Reported labs to Rose Marie Bolaños. Mg 2gm IVPB hanging per order. Appetite good. Dsg Chg'd per orders. OOB w/ standby assist. resting comfortably at this time. bed alarm on. call renteria within reach.. * Feli Salinas MD: PERFORM, MODIFY, MODIFY, SIGN, VERIFY Event Display: Progress Note Hospital Authored Date: [id number] Patient: ALEXANDRE BAEZA Age: 48 years Sex: Male : 1975 Associated Diagnoses: None Author: Feli Salinas MD Subjective No acute events overnight. Patient reports swelling is much better with the aid of coffee attendant.He says the swelling is much improved. He has gotten up out of bed, however reports pain and weakness. Denies fevers, chills, or other issues. Objective Vital Signs Vitals : VITALS 03/02/2023 15:28 EDT Height 57.9 cm Temperature 98.2 DegF Temperature Route Oral Pulse Rate 86 bpm Respiratory Rate 17 br/min Systolic Blood Pressure 107 mm Hg Diastolic Blood Pressure 67 mm Hg Blood pressure sites Arm, left Mean Arterial Pressure 80 mm Hg Pulse Pressure 40 mm Hg Oxygen Saturation 99 % Mode of Delivery (Oxygen) Room air . Physical exam Patient is: in no acute distress, asleep, easily arousable Cardiac: RRR. Respiratory: CTA. Abdomen: Abdomen is soft, nontender, nondistended Neurologic: no focal deficits Extremities: RLE with light serosang staining along the gluteal end of the wound. No evidence of seroma/hematoma. Dressing reapplied. Results Review 7 Day Results Results Laboratory : LABORATORY 03/02/2023 4:10 EDT WBC 4.2 k/mm3 RBC 2.53 m/mm3 L Hgb 7.3 Gm/dL L Hct 22.4 % L MCV 88.5 femtoliters MCH 28.9 pg MCHC 32.6 g/dL L Platelet Count 244 k/mm3 RDW-SD 45.6 femtoliters MPV 9.1 femtoliters L Nucleated RBC (Automated) 0.0 #/100 WBC'S Abs. NRBC 0.0 k/mm3 Sodium 129 mmol/L L Potassium 4.3 mmol/L Chloride 96 mmol/L L Bicarbonate Level 25 mmol/L Anion Gap 8 Glucose Level 115 mg/dL H BUN 22 mg/dL H Creatinine-Blood 1.0 mg/dL Estimated GFR Creatinine 96 ML/MIN/1.73 M2 Calcium 5.6 mg/dL L Protein, Total 5.5 Gm/dL L Albumin 2.8 Gm/dL L Alkaline Phosphatase 70 units/L AST (SGOT) 67 units/L H ALT (SGPT) 55 units/L H Bilirubin, Total 0.3 mg/dL Bilirubin, Direct <0.2 mg/dL Bilirubin, Indirect Direct bilirubin is less than the measureable limit. Therefore, indirect mg/dL 03/01/2023 4:00 EDT Est Creatinine Clearance 86.46 mL/min 03/01/2023 3:18 EDT WBC 4.0 k/mm3 RBC 2.69 m/mm3 L Hgb 7.6 Gm/dL L Hct 23.0 % L MCV 85.5 femtoliters MCH 28.3 pg MCHC 33.0 g/dL Platelet Count 261 k/mm3 RDW-SD 43.0 femtoliters MPV 8.8 femtoliters L Nucleated RBC (Automated) 0.0 #/100 WBC'S Abs. NRBC 0.0 k/mm3 Impression and Plan 48year old male trauma consult s/p fall with long lay on the ground yesterday morning. ?LOC, - EtOH, + cocaine GCS 11 (deaf and mute) with CHRISTIAN, hyperkalemia and right gluteal and thigh compartment syndrome, now s/p right gluteal and thigh fasciotomies with Dr. Guadalupe on 02/14/23, with subsequent closure on 02/17. Postoperative course complicated by acute blood loss anemia requiring transfusions withCT evdience of thigh hematoma for which he is now s/p operative R leg wound exploration, hematoma evacuation and wound vac placement on 02/23. No identifiable source of bleeding noted with surface diffuse oozing suspecting coagulopathy, now s/p R wound closure 03/[address] Spencer. H/H stable postop. No evidence of hematoma postop. Injuries Right-sided gluteal compartment and thigh compartment syndrome s/p fasciotomy right chin superficial abrasion Plan Wound care: xeroform over suture line only with dry sterile gauze and medipore tape Wound care at home: dry sterile gauze if needed or leave open to air F/u in office arranged 6/29 NO activity restrictions. avoid trauma to the site. OKAY for chemical DVT ppx- please avoid RLE as injection site Trauma to sign off. Please page [phone] with questions/concerns/changes Please page trauma [phone] with questions Discussed with attending surgeon, Dr. Spencer Patient Care team information Care Team Personnel Name: Marcela Hines NP Position: [facility] Associate Professional Member Role: Lifetime Consulting Provider Address: Address: [address] [place] [address] [address] [facility] [place] [address]- Name: Richar Bailey MD Position: [facility] Renal MD Member Role: Lifetime Consulting Physician Address: Address: [address] [place] [address] #E [facility] [place] [address]- Name: Glory Aj Position: [facility] RN Member Role: Primary Care Nurse Name: Not on Staff, PCP Position: [facility] Physician (General Medicine) Member Role: PCP Name: Dianne Siddiqi Position: [facility] ED OA Charge Member Role: ED Associate Name: Candelario Sierra MD Position: [facility] Resident Member Role: ED Resident Address: Address: [address] [place] [address]- Name: Chau Dorsey MD Position: [facility] Resident Member Role: ED Attending Physician Address: Address: [address] [place] [address] Name: Aleena Kasper RN Position: [facility] ED RN W/OE and Tasks Member Role: Patient Care Provider Name: Guillermina Olivarez Position: [facility] ED TA [facility] Member Role: Logistics Center Manager Care Team Related Persons Name: JUSTIN GONSALVES Address: home [address] [place] [address]
--- OUTSIDE RECORDS SUMMARY | 2023-04-08 18:21 | XMS_ITS | Continuity of Care Document ---
Author Name Unknown Organization [facility] Address [address] [place] [address] [address] [place] [address]- Care Team Providers Care Manager Collection Name Role Phone Not on Staff, PCP Primary Care Physician Unavail able Encounter [facility] Date[facility]): 03/18/23 - 03/25/[address] [place] [address]- Attending Physician: Thais CASTELLANO, [place] Allergies, Adverse Reactions, Alerts No Known Allergies Medications Colace sodium 100 mg oral capsule 100 mg, 1, capsule, By Mouth, 2 times a day, PRN, # 20 capsule, Refills 1, Tot. Refills 1, Maintenance, for constipation, 03/18/23 10:59:00 EDT, Route to Pharmacy Electronically, [facility], Partial fill upon patient request if the presc... Start Date: 03/18/23 Status: Ordered gabapentin 100 mg oral capsule 100 mg, 1, capsule, By Mouth, 3 times a day, # 90 capsule, Refills 1, Tot. Refills 1, Maintenance, 03/18/23 10:59:00 EDT, Route to Pharmacy Electronically, [facility], Partial fill uponpatient request if the prescription is for a schedu... Start Date: 03/18/23 Status: Ordered Problem List Condition Confirmation Course Effective Dates Status Health [facility] Informant Severe obesity Confirmed Active Vital Signs Most recent to oldest [Reference Range]: 1 Height 57.9 cm (03/18/23 10:19 AM) Weight 55.8 kg (03/18/23 10:19 AM) Pulse Rate [55-90 bpm] 95 bpm *H* (03/18/23 10:19 AM) Body Mass Index [18.5-24.99 kg/m2] 166.4 5 kg/m2 *>HHI* (03/18/23 10:19 AM) Blood Pressure [90-138/55-84 mm Hg] 135/ 92mm Hg (03/18/23 10:19 AM) Temperature [96.8-100.4 DegF] 97.3 DegF (03/18/23 10:19 AM) Blood pressure sites Arm, left (03/18/23 10:19 AM) Temperature Route Temporal (03/18/23 10:19 AM) Weight Obtained Via Standing scale (03/18/23 10:19 AM) Patient Care team information Care Team Personnel Name: Marcela Hines NP Position: [facility] Associate Professional Member Role: Lifetime Consulting Provider Address: Address: [address] [place] [address] [facility] [address] Name: Richar Bailey MD Position: [facility] Renal MD Member Role: Lifetime Consulting Physician Address: Address: [address] [place] [address] [facility] [address] Name: Glory Aj Position: [facility] RN Member Role: Primary Care Nurse Name: Not on Staff, PCP Position: [facility] Physician (General Medicine) Member Role: PCP Care Team Related Persons Name: BARBARA GONSALVES Address: [address] [address]
--- NOTE | 2023-04-08 18:24 | PC.NURSE ---
Per brother patient does not speak mexican he only speaks sign language from the streets .
--- NOTE | 2023-04-08 18:35 | PC.NURSE ---
Via video product representative and chemistry technician with family. Family to call back in 20 minutes
--- NOTE | 2023-04-08 18:48 | PC.NURSE ---
Patient motioning like throat hurts. Pointing at stomach. NSR on monitor, HR 87.
--- NOTE | 2023-04-08 18:57 | PC.NURSE ---
Patient reporting n/v x 2 days,sore throat, chest pain, and vomiting
--- NOTE | 2023-04-08 18:58 | ECG_ITS ---
Test Reason : LEFT SIDE CP Blood Pressure : / mmHG Vent. Rate : 082 BPM Atrial Rate : 082 BPM P-R Int : 120 ms QRS Dur : 084 ms QT Int : 384 ms P-R-T Axes : 082 043 063 degrees QTc Int : 448 ms Normal sinus rhythm Normal ECG No previous ECGs available Referred By: Kathy Wei Electronically Signed By:Grzegorz Pate
--- NOTE | 2023-04-08 19:01 | ED_ITS ---
HPI - Abdominal Pain General Chief Complaint: Abdominal Pain Stated Complaint: N/V Time Seen by Provider: 04/08/23 18:48 Source: patient and student worker Mode of arrival: ambulatory Limitations: no limitations History of Present Illness HPI narrative: For 48-year-old male came in for evaluation of abdominal pain patient is deaf and mute only speaks Frisian sign language patient also can read lips. Given for evaluation of 2 days of left lower quadrant abdominal pain with nausea and vomiting but no diarrhea, normal bowel movement yesterday and passing gas, patient declined any prior history of abdominal surgery, abdominal pain is accompanied with left-sided chest pain with coughing and vomiting. Patient decl ined similar pain in the past, declined any prior intra-abdominal surgery. Related Data Previous Rx's Medication Instructions Recorded doxycycline hyclate 100 mg tablet 100 mg PO Q12H 10 days #20 tabs 10/08/21 metronidazole 500 mg tablet 2,000 mg PO ONCE 1 day #4 tabs 10/08/21 lidocaine 5 % topical patch 3 patch topical DAILY #15 ea 01/02/22 doxycycline hyclate 100 mg tablet 100 mg PO BID #14 tabs 01/28/22 nitrofurantoin 100 mg PO Q12H 7 days #14 caps 01/28/22 monohydrate/macrocrystals 100 mg capsule (Macrobid) Allergies Allergy/AdvReac Type Severity Reaction Status Date / Time No Known Allergies Allergy Verified 01/28/22 02:37 Review of Systems Review of Systems All other systems are reviewed and are negative Constitutional: Reports as per HPI and Reports no additional constitutional complaints Eyes: Reports as per HPI and Reports no additional eye complaints Reports system reviewed and no additional complaints, except as documented Cardiovascular: Reports as per HPI and Reports no additional cardiovascular complaints Respiratory: Reports as per HPI and Reports no additional respiratory complaints Gastrointestinal: Reports as per HPI and Reports no additional gastrointestinal complaints Genitourinary: Reports no additional female genitourinary complaints Musculoskeletal: Reports no additional musculoskeletal complaints Skin/Breast: Reports system reviewed and no additional complaints, except as docu Psychiatric: Reports no additional psychiatric complaints Endocrine: Reports no additional endocrine complaints Hematologic/Lymphatic: Reports no additional hematologic/lymphatic complaints Allergic/Immunologic: Reports no additional allergic/immunologic complaints Reports system reviewed and no additional complaints, except as documented and Reports Abnormal speech present [facility] Past Medical History Medical History Deaf mutism, congenital Social History Social History Advance Directives: No Advance Directives Information Provided: No Physical Exam ED Vital Signs: Vital Signs - 24 hr 04/08/23 18:10 04/08/23 20:27 04/08/23 22:16 Temperature 98.8 F 98.7 F Pulse Rate 104 H 76 76 Respiratory Rate 18 18 18 Blood Pressure 130/95 H 148/86 H 123/79 Pulse Oximetry 99 98 100 Oxygen Delivery Method Room Air Room Air Room Air BMI result Body Mass Index 14.5 Vital signs have been reviewed as appeared to be correct. Blood pressure normal. Heart rate normal. Respiration rate normal. Temperature normal. Oxygen saturation normal. Appearance: Alert. Oriented X3. No acute distress. Head: Normal external exam. Normocephalic. Atraumatic. No Herrera signs noted. No raccoon eyes noted Eyes: PERRLA. EOMI. Conjunctiva and sclera normal. Eyelids normal. ENT: TM's Normal. Pharynx normal. Uvula midline. Moist mucous membranes. No trismus noted. No drooling noted. No muffled voice noted. Neck: Normal inspection. Neck supple. FROM. No adenopathy. Thyroid Normal. No meningeal signs. No neck mass noted. CVS: Normal heart rate and rhythm. Heart sound normal. No murmurs noted. Pulses normal throughout. Respiratory: No respiratory distress. Painless inspiration. Breath sounds normal. No wheezes/rales/rhonchi noted. Chest nontender. No accessory muscle usage noted or decreased air movement noted. Abdomen: Soft, left lower quadrant tenderness, no rebound tenderness, no guarding. Bowel sounds normal in all 4 quadrants. No distention noted. No organomegaly noted. No visible injury noted. Back: No CVA tenderness. Full range of motion noted. Skin: Skin warm and dry. Normal skin color. Normal skin turgor. No rashes/lesions/lacerations noted. Extremities: No lower extremity edema. Extremities exhibit normal range of motion. Extremities nontender. Neuro: Oriented X 3. Cranial nerve exam: II-XII are grossly intact No motor deficit. No sensory deficit. Reflexes normal. Course Course Course Narrative: Family brought to the patient fried chicken and Cambodian fries that his eating patient claimed that he is very hungry did not eat for the last 2 days, patient feels much improved, no nausea or vomiting or abdominal pain now. Repeat abdominal exam showed no tenderness or guarding, CT of the abdomen and pelvis was unremarkable labs are unremarkable as well. Repeat potassium is normal. Medical Decision Making Differential Diagnosis Differential Diagnoses: The differential diagnosis associated with the presentation includes (Colitis, pancreatitis, appendicitis, diverticulitis, kidney stone, electrolyte abnormality, severe anemia.) Admission/Observation Consideration of admission/observation: Escalation of care including admission/observation considered Consult Healthcare Provider Management of the patient was discussed with: Hospitalist Lab Data MDM Lab Attestation statement: I reviewed the patient's lab results. 04/08/23 19:13 04/08/23 19:13 Labs: Lab Results 04/08/23 04/08/23 04/08/23 Range/Units 19:13 19:13 19:13 WBC 3.0 L (4.8-10.8) X10*3/uL RBC 3.75 L (4.60-5.80) X10*6/uL Hgb 10.3 L (14.0-18.0) g/dl Hct 31.9 L (42.0-52.0) % MCV 85.1 (80.0-98.0) fL MCH 27.5 (27.0-33.0) pg MCHC 32.3 (31.0-36.0) g/dl RDW 13.8 (11.0-16.0) % Plt Count 166 (160-400) X10*3/uL MPV 9.4 (9.4-12.4) fL Immature Gran % (Auto) 0.7 H (0.0-0.4) % Neut % (Auto) 48.9 (45-73) % Lymph % (Auto) 39.5 (20-40) % [place] % (Auto) 9.6 (2-11) % Eos % (Auto) 1.0 (0-4) % Baso % (Auto) 0.3 (0-2) % Lymph # (Auto) 1.2 (1.2-4.9) X10*3/uL [place] # (Auto) 0.3 (0.1-1.2) X10*3/uL Eos # (Auto) 0.0 (0.0-0.4) X10*3/uL Baso # (Auto) 0.0 (0.0-0.2) X10*3/uL Abs Immat Gran (auto) 0.02 (0.00-0.03) X10*3/uL Absolute Neuts (auto) 1.5 L (2.0-8.3) x10*3/uL Absolute Nucleated RBC 0.000 (0.0-0.012) X10*3/uL Nucleated RBC % (auto) 0.0 (0.0-0.2) /100WBC Sodium 138 (135-145) mmol/L Potassium 5.6 H (3.3-5.1) mmol/L Chloride 105 (96-108) mmol/L Carbon Dioxide 28 (22-29) mmol/L Anion Gap 11 L (12-20) BUN 35 H (9-16) mg/dL Creatinine 1.51 H (0.5-1.4) mg/dL Estim Creat Clear Calc 41.1 Estimated GFR 50 Random Glucose 80 (60-115) mg/dL Calcium 9.6 (8.4-10.2) mg/dL Total Bilirubin 0.6 (0.0-1.0) mg/dL Direct Bilirubin 0.2 (0.0-0.5) mg/dL AST 52 H (5-37) U/L ALT 50 H (0-40) U/L Alkaline Phosphatase 54 (39-117) U/L Troponin I High Sens 5.3 (<3.5-35.0) ng/L Total Protein 8.0 (6.5-8.0) g/dL Albumin 3.8 (3.5-5.0) g/dL Lipase 71 (8-78) U/L 04/08/23 Range/Units 22:15 WBC (4.8-10.8) X10*3/uL RBC (4.60-5.80) X10*6/uL Hgb (14.0-18.0) g/dl Hct (42.0-52.0) % MCV (80.0-98.0) fL MCH (27.0-33.0) pg MCHC (31.0-36.0) g/dl RDW (11.0-16.0) % Plt Count (160-400) X10*3/uL MPV (9.4-12.4) fL Immature Gran % (Auto) (0.0-0.4) % Neut % (Auto) (45-73) % Lymph % (Auto) (20-40) % [place] % (Auto) (2-11) % Eos % (Auto) (0-4) % Baso % (Auto) (0-2) % Lymph # (Auto) (1.2-4.9) X10*3/uL [place] # (Auto) (0.1-1.2) X10*3/uL Eos # (Auto) (0.0-0.4) X10*3/uL Baso # (Auto) (0.0-0.2) X10*3/uL Abs Immat Gran (auto) (0.00-0.03) X10*3/uL Absolute Neuts (auto) (2.0-8.3) x10*3/uL Absolute Nucleated RBC (0.0-0.012) X10*3/uL Nucleated RBC % (auto) (0.0-0.2) /100WBC Sodium (135-145) mmol/L Potassium 4.7 (3.3-5.1) mmol/L Chloride (96-108) mmol/L Carbon Dioxide (22-29) mmol/L Anion Gap (12-20) BUN (9-16) mg/dL Creatinine (0.5-1.4) mg/dL Estim Creat Clear Calc Estimated GFR Random Glucose (60-115) mg/dL Calcium (8.4-10.2) mg/dL Total Bilirubin (0.0-1.0) mg/dL Direct Bilirubin (0.0-0.5) mg/dL AST (5-37) U/L ALT (0-40) U/L Alkaline Phosphatase (39-117) U/L Troponin I High Sens (<3.5-35.0) ng/L Total Protein (6.5-8.0) g/dL Albumin (3.5-5.0) g/dL Lipase (8-78) U/L Independent Interpretation I performed an independent interpretation of an: EKG (Normal sinus rhythm at 82 beats per minute, normal axis deviation, normal intervals, no ST-T changes.), Plain X-Ray (Chest: No acute intrathoracic pathology.) and CT Scan (Abdomen and pelvis: No acute intra-abdominal pathology.) Radiology Impression Discussion of test interpretation with radiology: I have reviewed the radiologist's reading. Medications Administered Discontinued Medications Generic Name Dose Route Start Last Admin Trade Name Freq PRN Reason Stop Dose Admin Sodium Chloride 1,000 mls @ 999 mls/hr 04/08/23 18:57 04/08/23 19:14 Ns IV 04/08/23 19:57 999 mls/hr .Q1H1M ONE Administration Discharge Plan Discharge Clinical Impression: Abdominal pain Patient Disposition: Home, Self-Care Instructions: Abdominal Pain (ED) Prescriptions: No Action metronidazole 500 mg tablet 2,000 mg PO ONCE 1 Days Qty: 4 0RF doxycycline hyclate 100 mg tablet 100 mg PO Q12H 10 Days Qty: 20 0RF lidocaine 5 % adhesive patch,medicated 3 patch topical DAILY Qty: 15 0RF Rx Instructions: leave on most painful area for up to 12 hrs doxycycline hyclate 100 mg tablet 100 mg PO BID Qty: 14 0RF nitrofurantoin monohyd/m-cryst [Macrobid] 100 mg capsule 100 mg PO Q12H 7 Days Qty: 14 0RF Rx Instructions: must administer with a meal/food Referrals: [facility] [Primary Care Provider] -
[2023-04-08] MEDS: 0.9 % Sodium Chloride 1,000 ML 999 ML IV (19:14)
[2023-04-08 19:19] LABS: MANUAL DIFF FLAG NO
[2023-04-08 19:27] LABS: Basophils Percent Auto 0.3 % (0-2); Hematocrit 31.9 % (42.0-52.0); Hemoglobin 10.3 g/dl (14.0-18.0); Imm Gran Abs Auto 0.02 X10*3/uL (0.00-0.03); Imm Gran Pct Auto 0.7 % (0.0-0.4); Lymphocytes Absolute Auto 1.2 X10*3/uL (1.2-4.9); Lymphocytes Percent Auto 39.5 % (20-40); Mean Corpuscular HGB Conc 32.3 g/dl (31.0-36.0); Mean Corpuscular Hemoglobin 27.5 pg (27.0-33.0); Mean Corpuscular Volume 85.1 fL (80.0-98.0); Mean Platelet Volume 9.4 fL (9.4-12.4); Monocytes Absolute Auto 0.3 X10*3/uL (0.1-1.2); Monocytes Percent Auto 9.6 % (2-11); Neutrophils Absolute Auto 1.5 x10*3/uL (2.0-8.3); Neutrophils Percent Auto 48.9 % (45-73); Platelet Count 166 X10*3/uL (160-400); Red Blood Count 3.75 X10*6/uL (4.60-5.80); Red Cell Distribution Width 13.8 % (11.0-16.0)
[2023-04-08 19:36] LABS: Alanine Aminotransferase 50 U/L (0-40); Albumin Level 3.8 g/dL (3.5-5.0); Alkaline Phosphatase 54 U/L (39-117); Anion Gap 11 (12-20); Aspartate Amino Transferase 52 U/L (5-37); Bilirubin Direct 0.2 mg/dL (0.0-0.5); Bilirubin Total 0.6 mg/dL (0.0-1.0); Blood Urea Nitrogen 35 mg/dL (9-16); Calcium 9.6 mg/dL (8.4-10.2); Carbon Dioxide 28 mmol/L (22-29); Chloride 105 mmol/L (96-108); Creatinine Clr Calc Pharmacy 41.1; Estimated Glomerular Filt Rate 50; Glucose Random 80 mg/dL (60-115); Lipase 71 U/L (8-78); Potassium 5.6 mmol/L (3.3-5.1); Sodium 138 mmol/L (135-145)
[2023-04-08 19:42] LABS: Troponin-I High Sensitivity 5.3 ng/L (<3.5-35.0)
[2023-04-08 20:27] VITALS: BP 148/86; PULSE 76; RESP 18; O2SAT 98
--- NOTE | 2023-04-08 21:35 | PC.NURSE ---
patient in bed with no distress at this time patient will continue to be monitored until discharged
[2023-04-08 22:16] VITALS: BP 123/79; PULSE 76; RESP 18; TEMP 37.1; O2SAT 100
[2023-04-08 22:29] LABS: Potassium 4.7 mmol/L (3.3-5.1)
[2023-04-08 22:43] LABS: Troponin-I High Sensitivity 8.7 ng/L (<3.5-35.0)
== END 2023-04-08 23:22 | disposition home or self-care (01) ==
PROVIDERS: Emergency Provider Emergency Medicine
DX: R10.32 Left lower quadrant pain (principal); R11.2 Nausea with vomiting, unspecified
CPT/HCPCS: 36415; 71045; 74176; 80048; 80076; 83690; 84132; 84484; 85025; 93005; 99284; 99285

== ENCOUNTER → 2023-04-08 18:58 | Outpatient (BNV) | payer MEDICAID, SELFPAY | PROVIDERS: Emergency Provider Emergency Medicine; Visit Provider Internal Medicine Cardiovascular Disease | DX: R07.9 Chest pain, unspecified (principal) | CPT/HCPCS: 93010 ==

== ENCOUNTER 2023-04-11 14:11 | Emergency (ER) | payer MEDICAID, SELFPAY ==
--- NOTE | ~2023-04-11 | XR_ITS ---
EXAMINATION: XR CHEST CLINICAL INFORMATION: Right rib pain COMPARISON: Previous chest CT February 2023 TECHNIQUE: Frontal view of the chest was obtained. FINDINGS: No significant abnormality is noted involving the heart, lungs, mediastinum, bony thorax or soft tissues. XR/XR chest 1V IMPRESSION: Unremarkable examination.
--- NOTE | ~2023-04-11 | CT_ITS ---
EXAMINATION: CT head/brain wo IV con CLINICAL INFORMATION: Reason for Exam ams COMPARISON: None. TECHNIQUE: Contiguous axial imaging was performed from the skull base to vertex without intravenous contrast. Sagittal and coronal reformatted images were obtained. This CT examination was performed using dose optimization techniques as appropriate, variously including the following: * Automated exposure control * Adjustment of mA and/or kV according to patient size (this includes techniques or standardized protocols for targeted exams where dose is matched to indication/reason for exam; i.e. extremities or head) Use of iterative reconstruction technique DLP: 631.06 mGy-cm FINDINGS: No acute osseous or soft tissue abnormality. The mastoids are clear. Left maxillary sinus mucosal thickening. There is no evidence of acute intracranial hemorrhage or territorial infarction. No abnormal mass effect or midline shift is seen. Harry to white matter differentiation is well preserved. No extra-axial fluid collections are identified. No hydrocephalus. No significant volume loss. Multifocal encephalomalacia involving the paramedian superior frontal lobes, anterior inferior right frontal lobe and anterior right temporal lobe, likely posttraumatic. There is a small hypodensity involving the genu of the left internal capsule, likely reflecting an age-indeterminate but favored to be chronic lacunar infarct. CT/CT head/brain wo IV con IMPRESSION: 1. No acute intracranial hemorrhage, mass effect, hydrocephalus, or acute territorial edematous infarction. 2. Multifocal encephalomalacia involving the paramedian superior frontal lobes, anterior inferior right frontal lobe and anterior right temporal lobe, likely posttraumatic. 3. Small hypodensity involving the genu of the left internal capsule, likely reflecting an age-indeterminate but favored chronic lacunar infarct.
[2023-04-11 14:15] VITALS: BP 148/80; PULSE 110; O2SAT 100
--- NOTE | 2023-04-11 14:15 | ED_ITS ---
HPI - General Adult General Chief complaint: Overdose Stated complaint: Overdose per EMS Time Seen by Provider: 04/11/23 14:14 Source: patient and EMS Mode of arrival: EMS Limitations: other (patient doesnt understand writing or ASL, difficult to communicate with ) History of Present Illness HPI narrative: This is a 48-year-old history of hard of hearing, deaf presenting via EMS for a heroin overdose. He was found unresponsive at the laundromat, patient was sitting on the ground, received 8 mg of Narcan intranasally. Attempted to use qual research manager however patient does not understand sign very well, patient is not able to right, unable to speak. He keeps pointing at the right side of his ribs. When we asked him with the signal maintainer if he overdose she said no however unclear if he understood the question commercial baker helper also feels as though patient is not understanding. Unable to provide accurate history, review of systems. Patient nods his head when we point his name, date of . Difficult to obtain NIH stroke scale patient not following commands. Difficult to obtain GCS. Patient appears atraumatic however Related Data Previous Rx's Medication Instructions Recorded doxycycline hyclate 100 mg tablet 100 mg PO Q12H 10 days #20 tabs 10/08/21 metronidazole 500 mg tablet 2,000 mg PO ONCE 1 day #4 tabs 10/08/21 lidocaine 5 % topical patch 3 patch topical DAILY #15 ea 01/02/22 doxycycline hyclate 100 mg tablet 100 mg PO BID #14 tabs 01/28/22 nitrofurantoin 100 mg PO Q12H 7 days #14 caps 01/28/22 monohydrate/macrocrystals 100 mg capsule (Macrobid) Allergies Allergy/AdvReac Type Severity Reaction Status Date / Time No Known Allergies Allergy Verified 01/28/22 02:37 Review of Systems Review of Systems: Yes Unobtainable due to mental status PMFSH Past Medical History Attestation statement: The following information was validated with the patient. Source: old records reviewed and nursing notes reviewed Medical History Deaf mutism, congenital Social History Social History Advance Directives: No Advance Directives Information Provided: No Physical Exam ED Vital Signs: Vital Signs - 24 hr 04/11/23 14:17 04/11/23 14:39 Temperature 98.7 F 97.9 F Pulse Rate 112 H 88 Respiratory Rate 20 16 Blood Pressure 121/66 144/99 H Pulse Oximetry 100 100 Oxygen Delivery Method Room Air Room Air BMI result Body Mass Index 22.0 vss Appearance: Alert.? Oriented X3.? No acute distress.? Head: Normocephalic, atraumatic, no step-offs or deformities Eyes: Pupils equal, round and reactive to light.? Extraocular movements intact and ENT: Pharynx normal.? Neck: Normal inspection.? Neck supple.? CVS: Normal heart rate and rhythm.? Pulses normal.? + TT to right ribs throughout Respiratory: No respiratory distress.? Breath sounds normal.? Abdomen: Soft and nontender.? Skin: Skin warm and dry.? Normal skin color.? Normal skin turgor.? Extremities: No lower extremity edema.? No calf ttp. 5/5 strength to bilateral upper and lower extremities Neuro: Oriented X 3.? No motor deficit.? No sensory deficit normal hand customer service representative teller. Negative Romberg pronator drift. Normal [id number]. Following basic commands. Course Reevaluation(s) Reevaluation #1: Patient's CBC with normocytic anemia, patient has had a normocytic anemia in the past. Chemistry pending, hemolyzed. CT head, chest x-ray, troponin, EKG pending. Sign out to night provider Norma OLIVIER Medical Decision Making Medical Decision Making MDM Narrative: 48-year-old male presents for suspected opiate overdose, unclear history, patient pointing at the right side of his chest in for he has chest discomfort or rib pain, patient poor historian. Patient does not understand Burmese sign language, patient does not right, he is deaf. Physical exam patient appears well, no acute findings. Following some commands. Concerns for polysubstance abuse. Will obtain chest x-ray, troponin, rule out ACS. Will obtain D-dimer to rule out PE. Unlikely acute trauma no signs of trauma on my exam. Plan labs, imaging, EKG. Differential Diagnosis Differential Diagnoses: The differential diagnosis associated with the presentation includes Concerns for polysubstance abuse. Will obtain chest x-ray, troponin, rule out ACS. Will obtain D-dimer to rule out PE. Unlikely acute trauma no signs of trauma on my exam. Admission/Observation Consideration of admission/observation: Escalation of care including admission/observation considered Possible Lab Data MDM Lab Attestation statement: I reviewed the patient's lab results. 04/11/23 15:36 04/11/23 15:36 Labs: Lab Results 04/11/23 Range/Units 15:36 WBC 2.6 L (4.8-10.8) X10*3/uL RBC 3.18 L (4.60-5.80) X10*6/uL Hgb 8.8 L (14.0-18.0) g/dl Hct 27.3 L (42.0-52.0) % MCV 85.8 (80.0-98.0) fL MCH 27.7 (27.0-33.0) pg MCHC 32.2 (31.0-36.0) g/dl RDW 14.1 (11.0-16.0) % Plt Count 170 (160-400) X10*3/uL MPV 9.3 L (9.4-12.4) fL Immature Gran % (Auto) 0.8 H (0.0-0.4) % Neut % (Auto) 70.9 (45-73) % Lymph % (Auto) 20.4 (20-40) % [place] % (Auto) 7.5 (2-11) % Eos % (Auto) 0.4 (0-4) % Baso % (Auto) 0.0 (0-2) % Lymph # (Auto) 0.5 L (1.2-4.9) X10*3/uL [place] # (Auto) 0.2 (0.1-1.2) X10*3/uL Eos # (Auto) 0.0 (0.0-0.4) X10*3/uL Baso # (Auto) 0.0 (0.0-0.2) X10*3/uL Abs Immat Gran (auto) 0.02 (0.00-0.03) X10*3/uL Absolute Neuts (auto) 1.8 L (2.0-8.3) x10*3/uL Absolute Nucleated RBC 0.000 (0.0-0.012) X10*3/uL Nucleated RBC % (auto) 0.0 (0.0-0.2) /100WBC Core Measures AMI core measures followed: Yes Measure exclusions: not indicated Critical Care Time Critical Care Time Critical Care Time: No Discharge Plan Discharge Clinical Impression: Drug overdose Patient Disposition: Still a Patient Prescriptions: No Action metronidazole 500 mg tablet 2,000 mg PO ONCE 1 Days Qty: 4 0RF doxycycline hyclate 100 mg tablet 100 mg PO Q12H 10 Days Qty: 20 0RF lidocaine 5 % adhesive patch,medicated 3 patch topical DAILY Qty: 15 0RF Rx Instructions: leave on most painful area for up to 12 hrs doxycycline hyclate 100 mg tablet 100 mg PO BID Qty: 14 0RF nitrofurantoin monohyd/m-cryst [Macrobid] 100 mg capsule 100 mg PO Q12H 7 Days Qty: 14 0RF Rx Instructions: must administer with a meal/food
[2023-04-11 14:17] VITALS: BP 121/66; PULSE 112; RESP 20; TEMP 37.1; O2SAT 100; BMI 22.0
[2023-04-11 14:39] VITALS: BP 144/99; PULSE 88; RESP 16; TEMP 36.6; O2SAT 100
--- NOTE | 2023-04-11 15:02 | ECG_ITS ---
Test Reason : OVERDOSE Blood Pressure : / mmHG Vent. Rate : 081 BPM Atrial Rate : 081 BPM P-R Int : 126 ms QRS Dur : 076 ms QT Int : 402 ms P-R-T Axes : 079 040 061 degrees QTc Int : 466 ms Normal sinus rhythm Normal ECG When compared with ECG of 08-APR-2023 19:01, No significant change was found Referred By: Dana Canales Electronically Signed By:JESUS BROWN MD
--- NOTE | 2023-04-11 15:31 | MHC.RECOVRN ---
Unable to complete SUDE at this time due to difficulty communicating with pt. Attempted to use marketing writer, however, garbage collector driver does not believe he is understanding and that he is not using ASL to sign back.
[2023-04-11 15:42] LABS: MANUAL DIFF FLAG NO
[2023-04-11 15:44] LABS: Eosinophils Percent Auto 0.4 % (0-4); Hematocrit 27.3 % (42.0-52.0); Hemoglobin 8.8 g/dl (14.0-18.0); Imm Gran Abs Auto 0.02 X10*3/uL (0.00-0.03); Imm Gran Pct Auto 0.8 % (0.0-0.4); Lymphocytes Absolute Auto 0.5 X10*3/uL (1.2-4.9); Lymphocytes Percent Auto 20.4 % (20-40); Mean Corpuscular HGB Conc 32.2 g/dl (31.0-36.0); Mean Corpuscular Hemoglobin 27.7 pg (27.0-33.0); Mean Corpuscular Volume 85.8 fL (80.0-98.0); Mean Platelet Volume 9.3 fL (9.4-12.4); Monocytes Absolute Auto 0.2 X10*3/uL (0.1-1.2); Monocytes Percent Auto 7.5 % (2-11); Neutrophils Absolute Auto 1.8 x10*3/uL (2.0-8.3); Neutrophils Percent Auto 70.9 % (45-73); Platelet Count 170 X10*3/uL (160-400); Red Blood Count 3.18 X10*6/uL (4.60-5.80); Red Cell Distribution Width 14.1 % (11.0-16.0); White Blood Count 2.6 X10*3/uL (4.8-10.8)
[2023-04-11 15:58] LABS: COVID-19 Test Negative (Negative); IDNOW Serial# 08D9AD1C
[2023-04-11 16:02] LABS: D Dimer High Sensitivity < 150 NG/ML
[2023-04-11 16:02] LABS: Acetaminophen LAB < 17 mcg/mL (<30); Salicylate < 5.0 mg/dL (15-30)
[2023-04-11 16:05] LABS: Albumin Level 3.6 g/dL (3.5-5.0); Alkaline Phosphatase 53 U/L (39-117); Anion Gap 11 (12-20); Aspartate Amino Transferase 56 U/L (5-37); Bilirubin Total 0.4 mg/dL (0.0-1.0); Blood Urea Nitrogen 38 mg/dL (9-16); Calcium 8.6 mg/dL (8.4-10.2); Carbon Dioxide 26 mmol/L (22-29); Chloride 108 mmol/L (96-108); Creatinine Clr Calc Pharmacy 50.3; Estimated Glomerular Filt Rate 44; Glucose Random 92 mg/dL (60-115); Lipase 82 U/L (8-78); Magnesium 1.8 mg/dL (1.6-2.6); Potassium 4.4 mmol/L (3.3-5.1); Sodium 141 mmol/L (135-145); Total Protein 7.5 g/dL (6.5-8.0)
[2023-04-11 16:11] LABS: Troponin-I High Sensitivity 6.7 ng/L (<3.5-35.0)
[2023-04-11 16:22] LABS: Alanine Aminotransferase 48 U/L (0-40)
[2023-04-11 16:46] LABS: Ethanol < 10 mg/dL
[2023-04-11] MEDS: 0.9 % Sodium Chloride 1,000 ML 999 ML IV (17:42)
== END 2023-04-11 18:22 | disposition home or self-care (01) ==
PROVIDERS: Physician Assistant; Physician Assistant Medical; Emergency Provider Emergency Medicine Emergency Medical Services
DX: R40.4 Transient alteration of awareness (principal); T40.1X1A Poisoning by heroin, accidental (unintentional), initial encounter; Y92.59 Other trade areas as the place of occurrence of the external cause; H91.3 Deaf nonspeaking, not elsewhere classified; Z79.899 Other long term (current) drug therapy
CPT/HCPCS: 36415; 70450; 71045; 80053; 80143; 80179; 80307; 83690; 83735; 84484; 85025; 85379; 87635; 93005; 99284

== ENCOUNTER → 2023-04-11 15:02 | Outpatient (BNV) | payer MEDICAID, SELFPAY | PROVIDERS: Emergency Provider Emergency Medicine Emergency Medical Services; Visit Provider Internal Medicine Cardiovascular Disease | DX: R41.82 Altered mental status, unspecified (principal) | CPT/HCPCS: 93010 ==

== ENCOUNTER 2023-04-24 22:44 | Emergency (ER) | payer MEDICAID, SELFPAY ==
--- NOTE | ~2023-04-24 | XR_ITS ---
EXAMINATION: XR CHEST CLINICAL INFORMATION: Aspiration. Cough. COMPARISON: 04/11/2023 TECHNIQUE: Frontal view of the chest was obtained. FINDINGS: No significant abnormality is noted involving the heart, lungs, mediastinum, bony thorax or soft tissues. XR/XR chest 1V IMPRESSION: Unremarkable examination.
--- NOTE | 2023-04-24 23:05 | ED_ITS ---
HPI - Psych General Chief Complaint: Overdose Stated Complaint: etoh Time Seen by Provider: 04/24/23 22:54 Source: patient Mode of arrival: EMS Limitations: other (intoxication hard to get history from - certified court interpreter cuts off. ) History of Present Illness HPI Narrative: patient is deaf but is not understand ASL very well and he does not speak. He was found tonight acting more sedated but no narcan was given - he denies SI to me and states he accidentally overdosed on heroin he wants help and to sleep here tonight. Janette nieves just seen for the same thing 04/11. He arrived in the ED with pinpoint pupils RR 6 and sats of 85% I gave him 4mg narcan and he responded well with normal pupils, O2 > 95% and able to participate - he had a hard time with the yield engineer so I downloaded a phone lico called [employer] to interact with him and he did well. MD complaint: substance abuse Onset (ago): unknown History of same: Yes Relieving factors: none Exacerbating factors: drug use Context: recent drug abuse Associated psychiatric symptoms: none Associated symptoms: denies other symptoms Treatments prior to arrival: none Related Data Previous Rx's Medication Instructions Recorded doxycycline hyclate 100 mg tablet 100 mg PO Q12H 10 days #20 tabs 10/08/21 metronidazole 500 mg tablet 2,000 mg PO ONCE 1 day #4 tabs 10/08/21 lidocaine 5 % topical patch 3 patch topical DAILY #15 ea 01/02/22 doxycycline hyclate 100 mg tablet 100 mg PO BID #14 tabs 01/28/22 nitrofurantoin 100 mg PO Q12H 7 days #14 caps 01/28/22 monohydrate/macrocrystals 100 mg capsule (Macrobid) Allergies Allergy/AdvReac Type Severity Reaction Status Date / Time No Known Allergies Allergy Verified 01/28/22 02:37 Review of Systems Review of Systems: Constitutional : No Fever, No Chills ENT/Mouth : No Ear Pain, No Nasal Congestion, No sore throat Eyes: No Eye Pain, No Swelling, No Redness Cardiovascular : No Chest Pain, No SOB Respiratory : pos Cough, No Sputum, No Dyspnea Gastrointestinal : No Nausea, No Vomiting, No Diarrhea, No Hematochezia, No Melena Genitourinary : No Dysuria, No Urinary Frequency, No Hematuria Musculoskeletal : No Myalgias Skin : No Skin Lesions, No rash Neuro : No Weakness, No Numbness, No Paresthesias, No Dizziness, No Headache Psych : no Anxiety, no Depression, no SI/HI Heme/Lymph: No Lymphadenopathy Endocrine : No Polyuria, No Polydipsia All other systems reviewed and are negative [facility] Past Medical History Attestation statement: The following information was validated with the patient. Medical History Deaf mutism, congenital Social History Social History (Updated 04/24/23 @ 23:32 by Larissa Willams DO) Substance Use Type: Heroin Advance Directives: No Advance Directives Information Provided: No Physical Exam Vital Signs: Vital Signs: Last Vital Signs Temp 98.5 F 04/25/23 00:18 Pulse 73 04/25/23 00:18 Resp 14 04/25/23 00:18 BP 159/93 H 04/25/23 00:18 Pulse Ox 100 04/25/23 00:18 O2 Del Method Room Air 04/25/23 00:18 BMI result Body Mass Index 20.7 Appearance: initiallly only responsive to hard tactile stimuli with snoring RR 6 pinpoint pupils given 4mg narcan with good response RR 12 95% on RA and pupils 3mm able to participate in exam. No acute distress. Eyes: Pupils equal, round and reactive to light. ENT: Pharynx normal. Neck: Normal inspection. Neck supple. CVS: Normal heart rate and rhythm. Pulses normal. Respiratory: No respiratory distress. Breath sounds normal. slight dry cough Abdomen: Soft and non-tender. Skin: Skin warm and dry. Normal skin color. Normal skin turgor. Extremities: No lower extremity edema. No calf ttp Neuro: Oriented X 3. No motor deficit. No sensory deficit. CN2-12 intact other than he cannot hear at baseline Course Course Course Narrative: Patient placed in physician observation at 1150pm. The indication for observation is that the patient needs more time to see CARE team and observation of overdose. At this time the patient is stable post overdose. Reevaluation(s) Reevaluation #1: easily woken doing well post narcan Medications Administered Discontinued Medications Generic Name Dose Route Start Last Admin Trade Name Freq PRN Reason Stop Dose Admin Naloxone HCl 4 mg 04/24/23 23:02 04/24/23 23:15 Naloxone Hcl Nasal 4 Mg [place] NOSTRILALT 04/24/23 23:03 4 mg ONCE ONE Administration Medical Decision Making Medical Decision Making MDM Narrative: 48 yo male with hx of hearing impairment recent March visits for heroin overdose who comes in with overdose requiring ED intervention of narcan and approrpriate response he wants CARE team and help in the AM - he does have a repeated dry cough so I am obtaining CXR for aspiration - he has not vomited. I see no signs of head trauma will continue to monitor and observe in the ED. Differential Diagnosis Differential Diagnoses: The differential diagnosis associated with the presentation includes substance abuse, opiate dependence, possible aspiration, no head trauma seen Consult Healthcare Provider Management of the patient was discussed with: Fourdrinier Operator Lab Data MDM Lab Attestation statement: I reviewed the patient's lab results. Independent Interpretation I performed an independent interpretation of an: Plain X-Ray (no aspiration) Radiology Impression Discussion of test interpretation with radiology: I have reviewed the radiologist's reading. Independent Historian Clinical information obtained from an independent historian. History obtained from or confirmed by: EMS External Record Review External record reviewed: Inpatient record Social Determinants Patient?s care significantly limited by Social Determinants of Health including: Other Social Determinant of Health Discharge Plan Discharge Clinical Impression: Drug overdose Qualifiers: Encounter type: initial encounter Injury intent: accidental or unintentional Qualified Code(s): T50.901A - Poisoning by unspecified drugs, medicaments and biological substances, accidental (unintentional), initial encounter Patient Disposition: Still a Patient Prescriptions: No Action metronidazole 500 mg tablet 2,000 mg PO ONCE 1 Days Qty: 4 0RF doxycycline hyclate 100 mg tablet 100 mg PO Q12H 10 Days Qty: 20 0RF lidocaine 5 % adhesive patch,medicated 3 patch topical DAILY Qty: 15 0RF Rx Instructions: leave on most painful area for up to 12 hrs doxycycline hyclate 100 mg tablet 100 mg PO BID Qty: 14 0RF nitrofurantoin monohyd/m-cryst [Macrobid] 100 mg capsule 100 mg PO Q12H 7 Days Qty: 14 0RF Rx Instructions: must administer with a meal/food
[2023-04-24] MEDS: Naloxone HCl Nasal 4 MG SPRAY NOSTRILALT (23:15)
--- NOTE | 2023-04-24 23:18 | MHC.EDTECH ---
disregard ekg order pr dr raza
[2023-04-24 23:20] VITALS: BP 154/96; PULSE 89; O2SAT 97; BMI 20.7
--- NOTE | 2023-04-24 23:24 | PC.NURSE ---
pt narcsrini by Dr. Willams, pt more awake, used burr filer to communicate with the pt
[2023-04-25 00:05] VITALS: BP 162/98; PULSE 76; RESP 14; TEMP 36.6; O2SAT 99
[2023-04-25 00:18] VITALS: BP 159/93; PULSE 73; RESP 14; TEMP 36.9; O2SAT 100
[2023-04-25 02:57] VITALS: BP 139/91; PULSE 70; RESP 16; O2SAT 99
[2023-04-25 09:10] VITALS: BP 127/80; PULSE 75; RESP 16; O2SAT 100
--- NOTE | 2023-04-25 09:11 | PC.NURSE ---
patient resting in stretcher, patient has no complaints, VSS. respirations equal and unlabored no signs of distress
--- NOTE | 2023-04-25 11:45 | PC.NURSE ---
per care team, no health and wellness coach today. will provide pt with detox services.
== END 2023-04-25 14:40 | disposition home or self-care (01) ==
PROVIDERS: Emergency Provider Emergency Medicine
DX: T40.1X1A Poisoning by heroin, accidental (unintentional), initial encounter (principal); R40.0 Somnolence; F19.10 Other psychoactive substance abuse, uncomplicated; Y92.9 Unspecified place or not applicable; H91.3 Deaf nonspeaking, not elsewhere classified; R05.9 Cough, unspecified; Z79.899 Other long term (current) drug therapy
CPT/HCPCS: 71045; 99285

== ENCOUNTER 2023-04-27 14:59 | Outpatient (REF) | payer MEDICAID, SELFPAY ==
[2023-04-27 16:16] LABS: MANUAL DIFF FLAG NO
[2023-04-27 16:22] LABS: Basophils Percent Auto 0.3 % (0-2); Eosinophils Percent Auto 0.3 % (0-4); Hemoglobin 10.3 g/dl (14.0-18.0); Imm Gran Abs Auto 0.01 X10*3/uL (0.00-0.03); Imm Gran Pct Auto 0.3 % (0.0-0.4); Lymphocytes Absolute Auto 1.2 X10*3/uL (1.2-4.9); Lymphocytes Percent Auto 37.5 % (20-40); Mean Corpuscular HGB Conc 31.2 g/dl (31.0-36.0); Mean Corpuscular Hemoglobin 26.9 pg (27.0-33.0); Mean Corpuscular Volume 86.2 fL (80.0-98.0); Mean Platelet Volume 9.5 fL (9.4-12.4); Monocytes Absolute Auto 0.3 X10*3/uL (0.1-1.2); Monocytes Percent Auto 10.1 % (2-11); Neutrophils Absolute Auto 1.6 x10*3/uL (2.0-8.3); Neutrophils Percent Auto 51.5 % (45-73); Platelet Count 215 X10*3/uL (160-400); Red Blood Count 3.83 X10*6/uL (4.60-5.80); Red Cell Distribution Width 14.2 % (11.0-16.0); White Blood Count 3.1 X10*3/uL (4.8-10.8)
[2023-04-27 16:33] LABS: Estimated Average Glucose 97 mg/dL
[2023-04-27 17:01] LABS: Alanine Aminotransferase 40 U/L (0-40); Albumin Level 3.9 g/dL (3.5-5.0); Alkaline Phosphatase 48 U/L (39-117); Anion Gap 11 (12-20); Aspartate Amino Transferase 51 U/L (5-37); Bilirubin Total 0.4 mg/dL (0.0-1.0); Blood Urea Nitrogen 40 mg/dL (9-16); Calcium 9.2 mg/dL (8.4-10.2); Carbon Dioxide 29 mmol/L (22-29); Chloride 106 mmol/L (96-108); Cholesterol 154 mg/dL; Estimated Glomerular Filt Rate 56; Glucose Random 79 mg/dL (60-115); HDL Cholesterol 47 mg/dL; Iron 98 mcg/dL (45-160); LDL Cholesterol Calculated 83 mg/dl; Percent Iron Saturation 40 % (15-50); Potassium 4.9 mmol/L (3.3-5.1); Sodium 141 mmol/L (135-145); Total Iron Binding Capacity 244 mcg/dL (228-428); Triglycerides 123 mg/dL; Unsaturated Iron Binding 146 ug/dL
[2023-04-27 17:09] LABS: Ferritin 383 ng/mL (20-250); TSH reflex Free T4 0.45 uIU/mL (0.32-4.0); Vitamin D 25-OH Total 25.9 ng/mL (>30)
[2023-04-27 17:56] LABS: Folate 9.2 ng/mL (> or = 4.0); Vitamin B12 612 pg/mL (200-900)
[2023-04-28 04:04] LABS: Syphilis Screen Reactive (Nonreactive)
[2023-04-28 04:49] LABS: HBS Num1 0.85 mIU/mL (0-7.99); HBc Num1 1.74 S/CO (0.00-0.79); HBsAGNum1 0.36 S/CO (0.00-0.99); Hepatitis A Antibody IgM 0.16 Index (0-0.79); Hepatitis B Surface Antigen Negative (Negative); ~HepC Num1 5.56 S/CO (0.00-0.79); ~Hepatitis A Antibody IgM Nonreactive (Nonreactive); ~Hepatitis B Surface Antibody NONREACTIVE (Nonreactive); ~Hepatitis C Antibody Reactive (Nonreactive)
[2023-04-28 05:58] LABS: HBc Num2 1.74 S/CO; HIV AB/AG Reactive (Nonreactive); HIV Num 2 846.38 S/CO
[2023-04-28 06:04] LABS: HBc Num3 1.69 S/CO; Hepatitis B Core Antibody Reactive (Nonreactive)
[2023-05-06 11:57] LABS: RPR Quantitative Non-Reactive (Nonreactive)
[2023-05-06 11:58] LABS: T.Pallidum Particle Agg Test Inconclusive (Nonreactive)
[2023-05-10 07:22] LABS: HIV 1 Antibody POSITIVE (Abnormal); HIV 2 Antibody NEGATIVE
== END 2023-04-27 15:00 | disposition home or self-care (01) ==
LOC: HO.HHCL 14:59
PROVIDERS: Visit Provider Registered Nurse
DX: Z00.01 Encounter for general adult medical examination with abnormal findings (principal)
CPT/HCPCS: 36415; 80053; 80061; 82306; 82607; 82728; 82746; 83036; 83540; 84443; 85025; 86592; 86701; 86702; 86704; 86705; 86706; 86709; 86780; 86803; 87340; 87389

== ENCOUNTER 2023-05-05 12:50 | Outpatient (REF) | payer MEDICAID, SELFPAY ==
[2023-05-10 15:08] LABS: HCV Log PCR 6.04 Log IU/mL (NOT DETECTED); HepC Viral Load 1090000 IU/mL (NOT DETECTED)
[2023-05-11 15:28] LABS: HIV RNA PCR Qn Copies 6610 copies/mL (NOT DETECTED); HIV RNA PCR Qn Log Copies 3.82 (NOT DETECTED)
== END 2023-05-05 12:51 | disposition home or self-care (01) ==
LOC: HO.HHCL 12:50
PROVIDERS: Visit Provider Registered Nurse
DX: R76.8 Other specified abnormal immunological findings in serum (principal)
CPT/HCPCS: 36415; 87522; 87536

== ENCOUNTER 2023-06-21 11:38 | Outpatient (REF) | payer MEDICAID, SELFPAY ==
[2023-06-21 15:05] LABS: Hepatitis A Antibody IgG Nonreactive (Nonreactive); ~Hepatitis A Antibody IgG 0.77 S/CO (0.00-0.99)
[2023-06-21 15:12] LABS: Syphilis Screen Reactive (Nonreactive)
[2023-06-21 15:36] LABS: CT PCR NOT DETECTED (Not Detect.); NG PCR NOT DETECTED (Not Detect.)
[2023-06-22 07:23] LABS: Absolute CD3 Count 1005 cells/uL (840-3060); Absolute CD4 Count 102 cells/uL (490-1740); Absolute CD8 Count 860 cells/uL (180-1170); Absolute Lymphocytes 1102 cells/uL (850-3900); CD4 CD8 Ratio 0.12 (0.86-5.00); Percent CD3 Cells 91 % (57-85); Percent CD4 Cells 9 % (30-61); Percent CD8 Cells 78 % (12-42)
[2023-06-23 02:04] LABS: Mumps Virus IgG Antibody <9.00 AU/mL; Rubella IgG Antibody <0.90 Index; Rubeola IgG (Measles) <13.50 AU/mL; Toxoplasma IgM Antibody <8.00 AU/mL
[2023-06-23 15:44] LABS: TS Negative Control Passed; TS Panel A 2; TS Panel B 0; TS Positive Control Passed; TSpotTB Negative (Negative)
[2023-06-25 12:44] LABS: HLA B 5701 Negative
[2023-06-28 08:52] LABS: RPR Quantitative Non-Reactive (Nonreactive)
[2023-06-28 08:53] LABS: T.Pallidum Particle Agg Test Inconclusive (Nonreactive)
[2023-06-28 19:13] LABS: Glucose-6-Phosphate Dehydrogen 20.8 U/g Hgb (7.0-20.5)
[2023-06-29 00:59] LABS: HIV Genotype DETECTED
== END 2023-06-21 11:39 | disposition home or self-care (01) ==
LOC: HO.HHCL 11:38
PROVIDERS: Visit Provider Student in an Organized Health Care Education/Training Program
DX: B20 Human immunodeficiency virus [HIV] disease (principal)
CPT/HCPCS: 0353U; 36415; 73502; 81381; 82955; 86359; 86360; 86481; 86592; 86708; 86735; 86762; 86765; 86777; 86778; 86780; 86787; 87900; 87901

== ENCOUNTER 2023-07-02 11:49 | Outpatient (REF) | payer MEDICAID, SELFPAY ==
--- NOTE | ~2023-07-02 | XR_ITS ---
EXAMINATION: XR THORACOLUMBAR SPINE CLINICAL INFORMATION: Decubitus ulcers, question osteomyelitis. COMPARISON: None available. TECHNIQUE: 3 view thoracic spine FINDINGS: Arrow points to posterior mid thoracic level where superficial soft tissue defect is identified. No radiopaque foreign bodies. Underlying bony structures are intact without erosive changes to suggest active osteomyelitis. Alignment is maintained. Pedicles and visualized ribs are unremarkable. No focal paravertebral soft tissue swelling. Heart, mediastinum and visualized lung meza within normal limits. XR/XR thoracic spine 2V IMPRESSION: Mid thoracic soft tissue defect correlating with patient's decubitus ulcer. No bony changes to suggest osteomyelitis.
[2023-07-02 14:18] LABS: C Reactive Protein < 0.04 mg/dL (< or = 0.50)
[2023-07-02 14:20] LABS: Erythrocyte Sedimentation Rate 54 MM/HR (0-15)
== END 2023-07-02 11:50 | disposition home or self-care (01) ==
LOC: HO.HHCL 11:49
PROVIDERS: Visit Provider Family Medicine
DX: L89.103 Pressure ulcer of unspecified part of back, stage 3 (principal)
CPT/HCPCS: 36415; 72070; 85652; 86140; 87070; 87073; 87077; 87147; 87186; 87205

== ENCOUNTER 2023-08-02 12:29 | Outpatient (REF) | payer MEDICAID, SELFPAY ==
[2023-08-02 13:20] LABS: MANUAL DIFF FLAG NO
[2023-08-02 13:42] LABS: Basophils Percent Auto 0.9 % (0-2); Eosinophils Absolute Auto 0.1 X10*3/uL (0.0-0.4); Eosinophils Percent Auto 2.2 % (0-4); Hematocrit 35.5 % (42.0-52.0); Hemoglobin 10.9 g/dl (14.0-18.0); Imm Gran Abs Auto 0.02 X10*3/uL (0.00-0.03); Imm Gran Pct Auto 0.6 % (0.0-0.4); Lymphocytes Absolute Auto 1.3 X10*3/uL (1.2-4.9); Lymphocytes Percent Auto 41.4 % (20-40); Mean Corpuscular HGB Conc 30.7 g/dl (31.0-36.0); Mean Corpuscular Hemoglobin 27.7 pg (27.0-33.0); Mean Corpuscular Volume 90.1 fL (80.0-98.0); Monocytes Absolute Auto 0.4 X10*3/uL (0.1-1.2); Monocytes Percent Auto 11.1 % (2-11); Neutrophils Absolute Auto 1.4 x10*3/uL (2.0-8.3); Neutrophils Percent Auto 43.8 % (45-73); Platelet Count 264 X10*3/uL (160-400); Red Blood Count 3.94 X10*6/uL (4.60-5.80); Red Cell Distribution Width 15.6 % (11.0-16.0); White Blood Count 3.2 X10*3/uL (4.8-10.8)
[2023-08-02 14:06] LABS: Alanine Aminotransferase 37 U/L (0-40); Albumin Level 3.7 g/dL (3.5-5.0); Alkaline Phosphatase 50 U/L (39-117); Anion Gap 12 (12-20); Aspartate Amino Transferase 49 U/L (5-37); Bilirubin Total 0.2 mg/dL (0.0-1.0); Blood Urea Nitrogen 39 mg/dL (9-16); Calcium 9.3 mg/dL (8.4-10.2); Carbon Dioxide 27 mmol/L (22-29); Chloride 107 mmol/L (96-108); Estimated Glomerular Filt Rate 54; Glucose Random 60 mg/dL (60-115); Potassium 5.2 mmol/L (3.3-5.1); Sodium 141 mmol/L (135-145); Total Protein 7.7 g/dL (6.5-8.0)
[2023-08-03 08:54] LABS: Cytomegalovirus Ab IgG >10.00 U/mL; Cytomegalovirus Ab IgM <30.00 AU/mL
[2023-08-04 09:03] LABS: HIV RNA PCR Qn Copies 64 copies/mL (NOT DETECTED); HIV RNA PCR Qn Log Copies 1.81 (NOT DETECTED)
== END 2023-08-02 12:30 | disposition home or self-care (01) ==
LOC: HO.HHCL 12:29
PROVIDERS: Visit Provider Student in an Organized Health Care Education/Training Program
DX: B20 Human immunodeficiency virus [HIV] disease (principal)
CPT/HCPCS: 36415; 80053; 85025; 86644; 86645; 87536

== ENCOUNTER 2023-08-06 11:48 | Outpatient (REF) | payer MEDICAID, SELFPAY ==
[2023-08-06 13:30] LABS: MANUAL DIFF FLAG NO
[2023-08-06 13:34] LABS: Basophils Percent Auto 0.5 % (0-2); Eosinophils Absolute Auto 0.1 X10*3/uL (0.0-0.4); Eosinophils Percent Auto 2.7 % (0-4); Hematocrit 31.9 % (42.0-52.0); Hemoglobin 10.4 g/dl (14.0-18.0); Imm Gran Abs Auto 0.02 X10*3/uL (0.00-0.03); Imm Gran Pct Auto 0.5 % (0.0-0.4); Lymphocytes Absolute Auto 1.4 X10*3/uL (1.2-4.9); Lymphocytes Percent Auto 33.3 % (20-40); Mean Corpuscular HGB Conc 32.6 g/dl (31.0-36.0); Mean Corpuscular Hemoglobin 28.2 pg (27.0-33.0); Mean Corpuscular Volume 86.4 fL (80.0-98.0); Mean Platelet Volume 9.6 fL (9.4-12.4); Monocytes Absolute Auto 0.4 X10*3/uL (0.1-1.2); Monocytes Percent Auto 9.6 % (2-11); Neutrophils Absolute Auto 2.2 x10*3/uL (2.0-8.3); Neutrophils Percent Auto 53.4 % (45-73); Platelet Count 253 X10*3/uL (160-400); Red Blood Count 3.69 X10*6/uL (4.60-5.80); Red Cell Distribution Width 15.6 % (11.0-16.0); White Blood Count 4.1 X10*3/uL (4.8-10.8)
[2023-08-06 13:43] LABS: Anion Gap 9 (12-20); Blood Urea Nitrogen 27 mg/dL (9-16); Calcium 9.4 mg/dL (8.4-10.2); Carbon Dioxide 26 mmol/L (22-29); Chloride 107 mmol/L (96-108); Estimated Glomerular Filt Rate > 60; Glucose Random 103 mg/dL (60-115); Potassium 4.3 mmol/L (3.3-5.1); Sodium 138 mmol/L (135-145)
[2023-08-06 13:47] LABS: Alanine Aminotransferase 40 U/L (0-40); Albumin Level 3.9 g/dL (3.5-5.0); Alkaline Phosphatase 65 U/L (39-117); Anion Gap 10 (12-20); Aspartate Amino Transferase 55 U/L (5-37); Bilirubin Direct < 0.2 mg/dL (0.0-0.5); Bilirubin Total 0.2 mg/dL (0.0-1.0); Blood Urea Nitrogen 28 mg/dL (9-16); Calcium 9.4 mg/dL (8.4-10.2); Carbon Dioxide 27 mmol/L (22-29); Chloride 106 mmol/L (96-108); Estimated Glomerular Filt Rate > 60; Glucose Random 104 mg/dL (60-115); Potassium 4.2 mmol/L (3.3-5.1); Sodium 139 mmol/L (135-145)
[2023-08-06 14:04] LABS: TSH reflex Free T4 1.14 uIU/mL (0.32-4.0)
== END 2023-08-06 11:49 | disposition home or self-care (01) ==
LOC: HO.HHCL 11:48
PROVIDERS: Student in an Organized Health Care Education/Training Program; Visit Provider Family Medicine
DX: M79.89 Other specified soft tissue disorders (principal); E87.5 Hyperkalemia
CPT/HCPCS: 36415; 80048; 80053; 82248; 84443; 85025

== ENCOUNTER 2024-01-05 09:22 | Outpatient (REF) | payer MEDICAID, SELFPAY ==
[2024-01-05 11:46] LABS: Hematocrit 36.9 % (42.0-52.0); Hemoglobin 12.1 g/dl (14.0-18.0); Mean Corpuscular HGB Conc 32.8 g/dl (31.0-36.0); Mean Corpuscular Hemoglobin 28.1 pg (27.0-33.0); Mean Corpuscular Volume 85.8 fL (80.0-98.0); Mean Platelet Volume 9.7 fL (9.4-12.4); Platelet Count 280 X10*3/uL (160-400); Red Cell Distribution Width 14.7 % (11.0-16.0); White Blood Count 3.6 X10*3/uL (4.8-10.8)
[2024-01-05 11:58] LABS: INTERNATIONAL NORM RATIO 0.9 (0.9-1.1)
[2024-01-05 12:00] LABS: Alanine Aminotransferase 50 U/L (0-40); Albumin Level 4.1 g/dL (3.5-5.0); Alkaline Phosphatase 68 U/L (39-117); Anion Gap 12 (12-20); Aspartate Amino Transferase 59 U/L (5-37); Bilirubin Total 0.2 mg/dL (0.0-1.0); Blood Urea Nitrogen 37 mg/dL (9-16); Calcium 9.3 mg/dL (8.4-10.2); Carbon Dioxide 21 mmol/L (22-29); Chloride 111 mmol/L (96-108); Estimated Glomerular Filt Rate 49; Glucose Random 128 mg/dL (60-115); Potassium 4.9 mmol/L (3.3-5.1); Sodium 139 mmol/L (135-145); Total Protein 8.1 g/dL (6.5-8.0)
[2024-01-05 12:11] LABS: HBsAGNum1 0.26 S/CO (0.00-0.99); Hepatitis B Surface Antigen Negative (Negative)
[2024-01-06 12:03] LABS: Absolute CD3 Count 1003 cells/uL (840-3060); Absolute CD4 Count 227 cells/uL (490-1740); Absolute CD8 Count 712 cells/uL (180-1170); Absolute Lymphocytes 1141 cells/uL (850-3900); CD4 CD8 Ratio 0.32 (0.86-5.00); Percent CD3 Cells 88 % (57-85); Percent CD4 Cells 20 % (30-61); Percent CD8 Cells 62 % (12-42)
[2024-01-06 14:08] LABS: HIV RNA PCR Qn Copies 28 copies/mL (NOT DETECTED); HIV RNA PCR Qn Log Copies 1.45 (NOT DETECTED)
[2024-01-09 20:09] LABS: Hepatitis C Genotype 1a
[2024-01-13 17:58] LABS: FIB-ALT 41 U/L (9-46); FIB-Alpha-2-Macroglobulin 323 mg/dL (106-279); FIB-Apolipoprotein A1 165 mg/dL (94-176); FIB-GGT 44 U/L (3-95); FIB-Haptoglobin 42 mg/dL (43-212); FIB-Total Bilirubin 0.2 mg/dL (0.2-1.2); Liver Fibrosis Score 0.39; Liver Fibrosis Stage F1-F2; Nec Inflam Act Grade A0-A1; Nec Inflam Act Score 0.25
== END 2024-01-05 09:23 | disposition home or self-care (01) ==
LOC: HO.HHCL 09:22
PROVIDERS: Visit Provider Student in an Organized Health Care Education/Training Program
DX: B20 Human immunodeficiency virus [HIV] disease (principal); B19.20 Unspecified viral hepatitis C without hepatic coma
CPT/HCPCS: 36415; 80053; 81596; 85027; 85610; 86359; 86360; 87340; 87536; 87902

== ENCOUNTER 2024-03-27 11:50 | Outpatient (REF) | payer MEDICAID, SELFPAY ==
[2024-03-27 13:50] LABS: MANUAL DIFF FLAG NO
[2024-03-27 14:10] LABS: Basophils Percent Auto 0.4 % (0-2); Eosinophils Percent Auto 0.2 % (0-4); Hematocrit 41.5 % (42.0-52.0); Hemoglobin 13.4 g/dl (14.0-18.0); Imm Gran Abs Auto 0.01 X10*3/uL (0.00-0.03); Imm Gran Pct Auto 0.2 % (0.0-0.4); Lymphocytes Absolute Auto 0.7 X10*3/uL (1.2-4.9); Lymphocytes Percent Auto 14.4 % (20-40); Mean Corpuscular HGB Conc 32.3 g/dl (31.0-36.0); Mean Corpuscular Hemoglobin 28.5 pg (27.0-33.0); Mean Corpuscular Volume 88.1 fL (80.0-98.0); Monocytes Absolute Auto 0.3 X10*3/uL (0.1-1.2); Monocytes Percent Auto 5.9 % (2-11); Neutrophils Absolute Auto 3.6 x10*3/uL (2.0-8.3); Neutrophils Percent Auto 78.9 % (45-73); Platelet Count 224 X10*3/uL (160-400); Red Blood Count 4.71 X10*6/uL (4.60-5.80); Red Cell Distribution Width 13.7 % (11.0-16.0); White Blood Count 4.6 X10*3/uL (4.8-10.8)
[2024-03-27 15:05] LABS: Alanine Aminotransferase 48 U/L (0-40); Albumin Level 4.1 g/dL (3.5-5.0); Alkaline Phosphatase 61 U/L (39-117); Anion Gap 13 (12-20); Aspartate Amino Transferase 51 U/L (5-37); Bilirubin Total 0.4 mg/dL (0.0-1.0); Blood Urea Nitrogen 22 mg/dL (9-16); Calcium 9.9 mg/dL (8.4-10.2); Carbon Dioxide 26 mmol/L (22-29); Chloride 106 mmol/L (96-108); Estimated Glomerular Filt Rate 59; Glucose Random 92 mg/dL (60-115); Potassium 5.2 mmol/L (3.3-5.1); Sodium 140 mmol/L (135-145); Total Protein 7.4 g/dL (6.5-8.0)
[2024-03-28 14:29] LABS: HIV RNA PCR Qn Copies 81 copies/mL (NOT DETECTED); HIV RNA PCR Qn Log Copies 1.91 (NOT DETECTED)
[2024-03-29 06:38] LABS: RPR Rapid Plasma Reagin NON-REACTIVE (NON-REACTIVE)
[2024-03-30 18:30] LABS: Absolute CD3 Count 534 cells/uL (840-3060); Absolute CD4 Count 99 cells/uL (490-1740); Absolute CD8 Count 405 cells/uL (180-1170); Absolute Lymphocytes 620 cells/uL (850-3900); CD4 CD8 Ratio 0.24 (0.86-5.00); Percent CD3 Cells 86 % (57-85); Percent CD4 Cells 16 % (30-61); Percent CD8 Cells 65 % (12-42)
== END 2024-03-27 11:51 | disposition home or self-care (01) ==
LOC: HO.HHCL 11:50
PROVIDERS: Visit Provider Student in an Organized Health Care Education/Training Program
DX: B20 Human immunodeficiency virus [HIV] disease (principal); N17.9 Acute kidney failure, unspecified
CPT/HCPCS: 36415; 80053; 85025; 86359; 86360; 86592; 87536; 88112

== ENCOUNTER 2024-05-08 11:01 | Outpatient (REF) | payer MEDICAID, SELFPAY ==
[2024-05-10 13:27] LABS: HCV Log PCR 6.93 Log IU/mL (NOT DETECTED); HepC Viral Load 8420000 IU/mL (NOT DETECTED)
[2024-05-10 23:33] LABS: TS Negative Control Passed; TS Panel A 0; TS Panel B 0; TS Positive Control Passed; TSpotTB Negative (Negative)
== END 2024-05-08 11:02 | disposition home or self-care (01) ==
LOC: HO.HHCL 11:01
PROVIDERS: Visit Provider Student in an Organized Health Care Education/Training Program
DX: B20 Human immunodeficiency virus [HIV] disease (principal)
CPT/HCPCS: 36415; 86481; 87522

== ENCOUNTER 2024-08-11 10:09 | Outpatient (REF) | payer MEDICAID, SELFPAY ==
[2024-08-11 10:58] LABS: MANUAL DIFF FLAG NO
[2024-08-11 11:24] LABS: Basophils Percent Auto 0.4 % (0-2); Eosinophils Absolute Auto 0.2 X10*3/uL (0.0-0.4); Eosinophils Percent Auto 5.1 % (0-4); Hematocrit 36.5 % (42.0-52.0); Hemoglobin 12.1 g/dl (14.0-18.0); Imm Gran Abs Auto 0.02 X10*3/uL (0.00-0.03); Imm Gran Pct Auto 0.4 % (0.0-0.4); Lymphocytes Absolute Auto 0.9 X10*3/uL (1.2-4.9); Lymphocytes Percent Auto 20.8 % (20-40); Mean Corpuscular HGB Conc 33.2 g/dl (31.0-36.0); Mean Corpuscular Hemoglobin 28.9 pg (27.0-33.0); Mean Corpuscular Volume 87.1 fL (80.0-98.0); Mean Platelet Volume 9.3 fL (9.4-12.4); Monocytes Absolute Auto 0.3 X10*3/uL (0.1-1.2); Monocytes Percent Auto 7.3 % (2-11); Platelet Count 294 X10*3/uL (160-400); Red Blood Count 4.19 X10*6/uL (4.60-5.80); Red Cell Distribution Width 13.6 % (11.0-16.0); White Blood Count 4.5 X10*3/uL (4.8-10.8)
[2024-08-11 12:19] LABS: Alanine Aminotransferase 33 U/L (0-40); Albumin Level 3.9 g/dL (3.5-5.0); Alkaline Phosphatase 74 U/L (39-117); Anion Gap 11 (12-20); Aspartate Amino Transferase 41 U/L (5-37); Bilirubin Total 0.2 mg/dL (0.0-1.0); Blood Urea Nitrogen 31 mg/dL (9-16); Calcium 9.4 mg/dL (8.4-10.2); Carbon Dioxide 26 mmol/L (22-29); Chloride 108 mmol/L (96-108); Estimated Glomerular Filt Rate > 60; Glucose Random 70 mg/dL (60-115); Potassium 4.9 mmol/L (3.3-5.1); Sodium 140 mmol/L (135-145); Total Protein 7.4 g/dL (6.5-8.0)
[2024-08-13 11:18] LABS: HCV Log PCR 6.99 Log IU/mL (NOT DETECTED); HepC Viral Load 9810000 IU/mL (NOT DETECTED)
[2024-08-14 10:43] LABS: TS Negative Control Passed; TS Panel A 0; TS Panel B 0; TS Positive Control Passed; TSpotTB Negative (Negative)
[2024-08-14 15:32] LABS: HIV RNA PCR Qn Copies 478 copies/mL (NOT DETECTED); HIV RNA PCR Qn Log Copies 2.68 (NOT DETECTED)
[2024-08-16 16:54] LABS: Absolute CD3 Count 874 cells/uL (840-3060); Absolute CD4 Count 201 cells/uL (490-1740); Absolute CD8 Count 657 cells/uL (180-1170); Absolute Lymphocytes 966 cells/uL (850-3900); CD4 CD8 Ratio 0.31 (0.86-5.00); Percent CD3 Cells 90 % (57-85); Percent CD4 Cells 21 % (30-61); Percent CD8 Cells 68 % (12-42)
== END 2024-08-11 10:10 | disposition home or self-care (01) ==
LOC: HO.HHCL 10:09
PROVIDERS: Visit Provider Student in an Organized Health Care Education/Training Program
DX: Z21 Asymptomatic human immunodeficiency virus [HIV] infection status (principal); B19.20 Unspecified viral hepatitis C without hepatic coma
CPT/HCPCS: 36415; 80053; 85025; 86359; 86360; 86481; 86803; 87522; 87536

== ENCOUNTER 2025-08-09 11:04 | Outpatient (REF) | payer MEDICAID, SELFPAY ==
[2025-08-09 12:58] LABS: MANUAL DIFF FLAG NO
[2025-08-09 13:12] LABS: Hematocrit 37.5 % (42.0-52.0); Hemoglobin 12.5 g/dl (14.0-18.0); Imm Gran Abs Auto 0.01 X10*3/uL (0.00-0.03); Imm Gran Pct Auto 0.3 % (0.0-0.4); Lymphocytes Absolute Auto 0.9 X10*3/uL (1.2-4.9); Mean Corpuscular HGB Conc 33.3 g/dl (31.0-36.0); Mean Corpuscular Hemoglobin 29.3 pg (27.0-33.0); Mean Corpuscular Volume 88.0 fL (80.0-98.0); NRBC Abs Auto 0.000 X10*3/uL (0.0-0.012); NRBC Pct Auto 0.0 /100WBC (0.0-0.2); Platelet Count 140 X10*3/uL (160-400); Red Blood Count 4.26 X10*6/uL (4.60-5.80); White Blood Count 3.3 X10*3/uL (4.8-10.8)
[2025-08-09 14:01] LABS: Alanine Aminotransferase 26 U/L (0-40); Albumin Level 4.5 g/dL (3.5-5.0); Alkaline Phosphatase 76 U/L (39-117); Anion Gap 11 (12-20); Aspartate Amino Transferase 48 U/L (5-37); Blood Urea Nitrogen 27 mg/dL (9-16); Calcium 9.5 mg/dL (8.4-10.2); Carbon Dioxide 25 mmol/L (22-29); Chloride 111 mmol/L (96-108); Cholesterol 162 mg/dL (<200); Estimated Glomerular Filt Rate 56; HDL Cholesterol 45 mg/dL (>40); Potassium 4.4 mmol/L (3.3-5.1); Sodium 143 mmol/L (135-145); Total Protein 8.0 g/dL (6.5-8.0); Triglycerides 122 mg/dL (<150)
[2025-08-09 15:02] LABS: Reflex LDLD? No
--- OUTSIDE RECORDS SUMMARY | 2025-08-09 17:13 | XMS_ITS | Clinical Summary ---
Author Organization [facility] Facility Address [address] [place] [address], [place] [address] Care Team Providers Care Directional Survey Drafter Name Role Phone Chandrakant Taylor MD Primary Care Provider + Social History Tobacco Use Types Packs/Day Years Used Date Smoking Tobacco: Never Assessed Sex and Gender Information Value Date Recorded Sex Assigned at Not on file Legal Sex Male 3:03 PM EDT Gender Identity Not on file Sexual Orientation Not on file Plan of Treatment Health Maintenance Due Date Last Done Comments Hepatitis B Vaccine (1 of 3 - 19+ 3-dose series) 01/17 Colorectal Cancer Screening: Annual FOBT 01/18/2024 Colorectal Cancer Screening: Colonoscopy 01/18/2024 Colorectal Cancer Screening: Sigmoidoscopy 01/18/2024 Pneumococcal Vaccine: 50+ Years (1 of 1 - PCV) 025 Influenza Vaccine (#1) 2025 Insurance Medicaid [place] Care Teams Directional Survey Drafter Relationship Specialty Start Date End Date Chandrakant Taylor MD [address] [place] [id number] PCP - General Internal Medicine 02/25/23
[2025-08-10 08:02] LABS: Syphilis Screen Reactive (Nonreactive)
[2025-08-10 08:45] LABS: HBS Num1 29.93 mIU/mL (0-7.99); HBc Num1 2.26 S/CO (0.00-0.79); HBsAGNum1 0.43 S/CO (0.00-0.99); Hepatitis B Surface Antigen Negative (Negative); ~HepC Num1 3.88 S/CO (0.00-0.79); ~Hepatitis B Surface Antibody REACTIVE (Nonreactive); ~Hepatitis C Antibody Reactive (Nonreactive)
[2025-08-10 10:28] LABS: HBc Num2 2.25 S/CO; HBc Num3 2.27 S/CO
[2025-08-10 21:23] LABS: HIV RNA PCR Qn Copies 101000 copies/mL (NOT DETECTED); HIV RNA PCR Qn Log Copies 5.00 (NOT DETECTED)
[2025-08-12 07:54] LABS: TS Negative Control Passed; TS Panel A 1; TS Panel B 0; TS Positive Control Passed; TSpotTB Negative (Negative)
[2025-08-14 13:03] LABS: HCV Log PCR <1.18 NOT DETECTED Log IU/mL (NOT DETECTED); HepC Viral Load <15 NOT DETECTED IU/mL (NOT DETECTED)
[2025-08-16 16:44] LABS: Absolute CD3 Count 648 cells/uL (840-3060); Absolute CD8 Count 537 cells/uL (180-1170); Percent CD3 Cells 96 % (57-85); Percent CD8 Cells 79 % (12-42)
== END 2025-08-09 11:05 | disposition home or self-care (01) ==
LOC: HO.HHCL 11:04
PROVIDERS: PCP Student in an Organized Health Care Education/Training Program; Visit Provider Student in an Organized Health Care Education/Training Program
DX: B20 Human immunodeficiency virus [HIV] disease (principal); Z11.1 Encounter for screening for respiratory tuberculosis; Z11.59 Encounter for screening for other viral diseases; Z11.3 Encounter for screening for infections with a predominantly sexual mode of transmission
CPT/HCPCS: 36415; 80053; 80061; 83036; 85025; 86359; 86360; 86481; 86592; 86704; 86706; 86780; 86803; 87340; 87522; 87536

== ENCOUNTER 2025-08-30 12:12 | Outpatient (REF) | payer MEDICAID, SELFPAY ==
[2025-08-30 13:59] LABS: MANUAL DIFF FLAG NO
[2025-08-30 14:03] LABS: Hematocrit 39.6 % (42.0-52.0); Hemoglobin 13.0 g/dl (14.0-18.0); Imm Gran Abs Auto 0.01 X10*3/uL (0.00-0.03); Imm Gran Pct Auto 0.3 % (0.0-0.4); Lymphocytes Absolute Auto 1.3 X10*3/uL (1.2-4.9); Mean Corpuscular HGB Conc 32.8 g/dl (31.0-36.0); Mean Corpuscular Hemoglobin 29.3 pg (27.0-33.0); Mean Corpuscular Volume 89.2 fL (80.0-98.0); NRBC Abs Auto 0.000 X10*3/uL (0.0-0.012); NRBC Pct Auto 0.0 /100WBC (0.0-0.2); Platelet Count 154 X10*3/uL (160-400); Red Blood Count 4.44 X10*6/uL (4.60-5.80); White Blood Count 3.9 X10*3/uL (4.8-10.8)
[2025-08-30 14:16] LABS: Alanine Aminotransferase 19 U/L (0-40); Albumin Level 4.4 g/dL (3.5-5.0); Alkaline Phosphatase 69 U/L (39-117); Anion Gap 10 (12-20); Aspartate Amino Transferase 31 U/L (5-37); Blood Urea Nitrogen 22 mg/dL (9-16); Calcium 9.2 mg/dL (8.4-10.2); Carbon Dioxide 27 mmol/L (22-29); Chloride 107 mmol/L (96-108); Estimated Glomerular Filt Rate 52; Potassium 4.1 mmol/L (3.3-5.1); Sodium 140 mmol/L (135-145); Total Protein 7.6 g/dL (6.5-8.0)
== END 2025-08-30 12:13 ==
LOC: HO.HHCL 12:12
PROVIDERS: PCP Student in an Organized Health Care Education/Training Program; Visit Provider Student in an Organized Health Care Education/Training Program
DX: Z21 Asymptomatic human immunodeficiency virus [HIV] infection status (principal)
CPT/HCPCS: 36415; 80053; 85025